=== PATIENT | female | born 1975 | race Caucasian/White ===

== ENCOUNTER 2024-04-09 07:07 | Day surgery (SDC) | payer MEDICARE, SELFPAY ==
--- NOTE | 2024-04-09 | US_ITS ---
[address] [address] Patient Name: KAMILLA SOSA MRN: [id number] date: 1975 Sex: F Assigned Patient Location: US Current Patient Location: Accession/Order Number: [id number] Exam Date: 04/09/2024 07:20 Report Date: 04/09/2024 09:23 At the request of: ESDRAS PATIÑO Procedure: US biopsy FNA add lesion EXAMINATION: US biopsy thyroid, US biopsy FNA add lesion HISTORY: Thyroid nodule COMPARISON: Ultrasound thyroid 03/15/2024 TECHNIQUE: After obtaining informed consent, ultrasound-guided fine needle aspiration was performed in the usual sterile manner. FINDINGS: IMAGING: Ultrasound. BIOPSY NEEDLE: 25 gauge; 3 separate passes. LOCATION: Right lobe mid body 2.9 cm heterogeneous mass and inferior pole 2.1 cm heterogeneous mass. SPECIMEN TYPE: Cellular tissue. LOCAL ANESTHETIC: Buffered Xylocaine. COMPLICATIONS: None. LABORATORY: Prepared slide smears and washings for cell block evaluation. OTHER: Negative. PATHOLOGY: Pending. An addendum will be added when results are available. US/US biopsy FNA add lesion IMPRESSION: 1. Uneventful ultrasound guided fine needle aspiration (FNA). 2. Pathology results are pending. Electronically authenticated by: SRIDEVI MCCARTHY Date: 04/09/2024 09:23
--- NOTE | 2024-04-09 | US_ITS ---
[address] [address] Patient Name: KAMILLA SOSA MRN: [id number] date: 1975 Sex: F Assigned Patient Location: US Current Patient Location: Accession/Order Number: [id number] Exam Date: 04/09/2024 07:20 Report Date: 04/09/2024 09:23 At the request of: ESDRAS PATIÑO Procedure: US biopsy thyroid EXAMINATION: US biopsy thyroid, US biopsy FNA add lesion HISTORY: Thyroid nodule COMPARISON: Ultrasound thyroid 03/15/2024 TECHNIQUE: After obtaining informed consent, ultrasound-guided fine needle aspiration was performed in the usual sterile manner. FINDINGS: IMAGING: Ultrasound. BIOPSY NEEDLE: 25 gauge; 3 separate passes. LOCATION: Right lobe mid body 2.9 cm heterogeneous mass and inferior pole 2.1 cm heterogeneous mass. SPECIMEN TYPE: Cellular tissue. LOCAL ANESTHETIC: Buffered Xylocaine. COMPLICATIONS: None. LABORATORY: Prepared slide smears and washings for cell block evaluation. OTHER: Negative. PATHOLOGY: Pending. An addendum will be added when results are available. US/US biopsy thyroid IMPRESSION: 1. Uneventful ultrasound guided fine needle aspiration (FNA). 2. Pathology results are pending. Electronically authenticated by: SRIDEVI MCCARTHY Date: 04/09/2024 09:23
[2024-04-09 07:25] VITALS: BP 121/83; PULSE 79; O2SAT 98
[2024-04-09] MEDS: LIDOCAINE HCL 10 ML, SODIUM BICARBONATE 1 MEQ INJ (08:15)
--- NOTE | 2024-04-09 09:15 | SUR.PREOP ---
04/08/24 Pt instructed on procedure, date, time,and prep.
== END 2024-04-09 08:40 | disposition home or self-care (01) ==
LOC: US 07:10
PROVIDERS: Radiology Diagnostic Radiology; Visit Provider Otolaryngology
DX: E04.2 Nontoxic multinodular goiter (principal)
CPT/HCPCS: 10005; 10006; 88173

== ENCOUNTER 2024-04-10 07:37 | Day surgery (SDC) | payer MEDICARE, SELFPAY ==
--- NOTE | 2024-04-10 07:43 | US_ITS ---
[address] [address] Patient Name: KAMILLA SOSA MRN: [id number] date: 1975 Sex: F Assigned Patient Location: US Current Patient Location: Accession/Order Number: [id number] Exam Date: 04/10/2024 08:10 Report Date: 04/10/2024 09:24 At the request of: ESDRAS PATIÑO Procedure: US biopsy thyroid EXAMINATION: US biopsy thyroid, US biopsy FNA add lesion HISTORY: Thyroid Nodule COMPARISON: Ultrasound thyroid 03/15/2024 TECHNIQUE: After obtaining informed consent, ultrasound-guided fine needle aspiration was performed in the usual sterile manner. FINDINGS: IMAGING: Ultrasound. BIOPSY NEEDLE: 25 gauge; 3 separate passes within both lesions. LOCATION: Left side of isthmus 1.4 cm heterogeneous isoechoic mass; left lobe inferior pole 2.4 cm heterogeneous isoechoic mass. SPECIMEN TYPE: Cellular tissue. LOCAL ANESTHETIC: Buffered Xylocaine. COMPLICATIONS: None. LABORATORY: Prepared slide smears and washings for cell block evaluation. OTHER: Negative. PATHOLOGY: Pending. An addendum will be added when results are available. US/US biopsy thyroid IMPRESSION: 1. Uneventful ultrasound guided fine needle aspiration (FNA). 2. Pathology results are pending. Electronically authenticated by: SRIDEVI MCCARTHY Date: 04/10/2024 09:24
--- NOTE | 2024-04-10 07:48 | US_ITS ---
[address] [address] Patient Name: KAMILLA SOSA MRN: [id number] date: 1975 Sex: F Assigned Patient Location: US Current Patient Location: Accession/Order Number: [id number] Exam Date: 04/10/2024 08:10 Report Date: 04/10/2024 09:24 At the request of: ESDRAS PATIÑO Procedure: US biopsy FNA add lesion EXAMINATION: US biopsy thyroid, US biopsy FNA add lesion HISTORY: Thyroid Nodule COMPARISON: Ultrasound thyroid 03/15/2024 TECHNIQUE: After obtaining informed consent, ultrasound-guided fine needle aspiration was performed in the usual sterile manner. FINDINGS: IMAGING: Ultrasound. BIOPSY NEEDLE: 25 gauge; 3 separate passes within both lesions. LOCATION: Left side of isthmus 1.4 cm heterogeneous isoechoic mass; left lobe inferior pole 2.4 cm heterogeneous isoechoic mass. SPECIMEN TYPE: Cellular tissue. LOCAL ANESTHETIC: Buffered Xylocaine. COMPLICATIONS: None. LABORATORY: Prepared slide smears and washings for cell block evaluation. OTHER: Negative. PATHOLOGY: Pending. An addendum will be added when results are available. US/US biopsy FNA add lesion IMPRESSION: 1. Uneventful ultrasound guided fine needle aspiration (FNA). 2. Pathology results are pending. Electronically authenticated by: SRIDEVI MCCARTHY Date: 04/10/2024 09:24
[2024-04-10 07:50] VITALS: BP 114/88; PULSE 76; O2SAT 98
[2024-04-10] MEDS: LIDOCAINE HCL 10 ML, SODIUM BICARBONATE 1 MEQ INJ (08:15)
== END 2024-04-10 08:35 | disposition home or self-care (01) ==
LOC: US 07:39
PROVIDERS: Radiology Diagnostic Radiology; Visit Provider Otolaryngology
DX: E04.2 Nontoxic multinodular goiter (principal)
CPT/HCPCS: 10005; 10006; 88173

== ENCOUNTER 2024-05-22 17:33 | Emergency (ER) | payer MEDICARE, MEDICAID, SELFPAY ==
[2024-05-22 17:49] VITALS: BP 129/89; PULSE 85; TEMP 36.6; O2SAT 99; BMI 28.5
[2024-05-22 18:04] VITALS: BP 139/98; PULSE 72; TEMP 36.8; O2SAT 98; BMI 28.5
--- OUTSIDE RECORDS SUMMARY | 2024-05-22 18:04 | XMS_ITS | CCD ---
Author Organization [facility] Care Team Providers Care Youth Career Specialist Name Role Phone ADDI JULIO Admitting Unavailable ADDI JULIO Attending Unavailable Rin Mcgowan Primary Care Provider YULY, DR HAYWARD Primary Care Unavailable BANDAR, DR XIOMY Taylor Consulting Unavailable BANDAR, DR XIOMY Taylor Attending Unavailable BANDAR, DR XIOMY Taylor Admitting Unavailable DEBBIE VIEYRA Consulting Unavailable ADELE MONTAÑO Consulting Unavailable Earlene HAHN Primary Care Physician [phone] Rin Mcgowan Primary Care Physician [phone] Patricia Rivera Unavailable Sammie Robertson Unavailable Juan M ROPE RIDER - Rin WALTON Primary Care Provider FABRICE Rivera Attending Provider [phone] Rin Mcgowan Primary Care Provider MD Irina Jones Attending Provider [phone] Nimco Armas Primary Care Physician Juan M ROPE RIDER - Rin WALTON Primary Care Provider Dariela Alvarez Attending UnavailNimco Guerrero Attending Unavailable Nimco Armas Referring Unavailable Dariela Alvarez Attending Unavaila Dariela Trinh Referring Unavaila Dariela Trinh Taljerry Admitting UnavailNimco Guerrero Admitting Unavailable Nimco Armas Attending Unavailable Dariela Alvarez Attending UnavailNimco Guerrero MD Primary Care Provider Orlin Gordillo DO Unavailable Montrell CONRAD, Hai Primary Care Provider Rin Mcgowan Primary Care Provider Greg CONRAD, Esdras Granados Attending Provider Unavailab Sridevi Crystal MD Attending Provider [phone] Sridevi Mccarthy Attending Unavailable Sridevi Mccarthy Admitting Unavailable Timmis Jr, Esdras Darwin Attending Unavailable Timmis Jr, Esdras H Admitting Unavailable Mcgowan, Rin Bear Primary Care Unavailable GILLMORKIKA M Attending Unavailable GILLMOR, KIKA M Referring Unavailable Armas, Nimco D Referring Unavailable Armas, Nimco Rowley Admitting Unavailable Armas, Nimco Rowley Attending Unavailable Timmis, Esdras H Admitting Unavailable Timmis, Esdras H Attending Unavailable TIMMIS, ESDRAS H Attending Unavailable GILLMOR, KIKA Attending Unavailable TIMMIS, ESDRAS Granados Attending Unavailable GILLMOR, KIKA Attending Unavailable GILLMOR, KIKA Attending Unavailable ARMAS, NIMCO Referring Unavailable ORLIN GORDILLO Attending Unavailable GILLMOR, KIKA Attending Unavailable ARMAS, NIMCO Referring Unavailable Timmis, Esdras H Admitting Unavailable Timmis, Esdras H Attending Unavailable ERICK DONOHUE Attending Unav ailable ERICK DONOHUE Attending Unav ailable KIKA KENT Admitting Unavailable GILLMOClaudia, KIKA Winston Attending Unavailable ANGIMORKIKA Referring Unavailable [facility] Primary Care Unavailable AUSTYN STAUFFER Attending Unavailable MCGOWAN, RIN Primary Care Unavailable GIBSON STINSON Attending Unavailable WANDY GHOTRA Attending Unavailable JUAN M, RIN Primary Care Unavailable [facility] Primary Care Unavailable LAYA ENCARNACION Attending Unavailable Allergies Allergy Classification Reported Allergen(s) Allergy Type Date of Onset Reaction(s) Facility DULoxetine (1 source) DULoxetine; Translations: [duloxetine] Drug Allergy 9 Unknown [facility] Opioid Agonists (1 source) Codeine; Translations: [codeine] Drug Allergy rash [facility] Comment on above: rash,itch, hives risperiDONE (1 source) risperiDONE; Translations: [risperidone] Drug Allergy 9 Unknown [facility] (20 sources) Codeine; Translations: [CODEINE] Drug Allergy 2 Hives, rash, Unknown [facility] Comment on above: rash,itch, hives (20 sources) DULoxetine; Translations: [DULOXETINE] Drug Allergy 9 Anxiety [facility] (20 sources) risperiDONE; Translations: [RISPERIDONE] Drug Allergy 9 Hives [facility] (3 sources) Acetaminophen; Translations: [acetaminophen] Drug Allergy [facility] Rep[facility] Medications Current Medications Medication Drug Class(es) Dates Sig (Normalized) Sig (Original) ALPRAZolam 0.5 mg oral tablet (20 sources) Benzodiazepine Start: 04-25-2023 Alprazolam (Xanax) 0.5 mg tablet Active 0.5 MG PO . NEEDED as needed April 25, 2023 12:00am amitriptyline hydrochloride 25 mg oral tablet (20 sources) Tricyclic Antidepressant Start: 12-21-2023 End: 02-14-2024 amitriptyline (Elavil) 25 MG tablet Indications: Intractable chronic migraine without aura and without status migrainosus (CMS/HCC) Take 1/2-1 at bedtime 30 tablet 2 02/14/2024 Active amoxicillin 500 mg oral capsule (1 source) Penicillin-class Antibacterial Start: 05-06-2023 End: 05-16-2023 take 1 capsule by mouth three times daily amoxicillin (AMOXIL) 500 MG capsule Take 1 capsule by mouth 3 times daily for 10 days 30 capsule 0 05/06/2023 05/16/2023 Active amoxicillin 875 mg / clavulanate 125 mg oral tablet (1 source) Penicillin-class Antibacterial Start: 08-18-2019 End: 08-28-2019 take 1 tablet by mouth twice daily amoxicillin-clavul anate (AUGMENTIN) 875-125 MG per tablet Take 1 tablet by mouth 2 times daily for 10 days 20 tablet 0 08/18/2019 08/28/2019 Active betamethasone 0.5 mg/ml / clotrimazole 10 mg/ml topical cream (2 sources) Azole Antifungal, Corticosteroid Start: 07-22-2023 End: 03-07-2024 clotrimazole-betam ethasone (LOTRISONE) 1-0.05 % cream Apply topically 2 times daily. 15 g 07/22/2023 03/07/2024 Discontinued (LIST CLEANUP) 12 hr buPROPion hydrochloride 100 mg extended release oral tablet (7 sources) Aminoketone Start: 01-08-2020 take 1 tablet by mouth twice daily buPROPion 100 mg ER Tab 100 mg = 1 tab(s), Oral, BID, # 60 tab(s), Refills(s) 2, Pharmacy: [facility] #[id number], 175, cm, 01/07/20 13:49:00 EST, Height/Length Dosing, 98, kg, 01/07/20 13:49:00 EST, Weight Dosing Start Date: 01/08/20 Status: Ordered buPROPion (WELLB UTRIN) 75 MG tablet Take 50 mg by mouth 2 times daily 0 Active cariprazine 3 mg oral capsule (20 sources) Atypical Antipsychotic Start: 10-21-2021 take 1 capsule by mouth once daily VRAYLAR 3 MG CAPS capsule Take 1 capsule by mouth daily 11/29/2023 Active ciprofloxacin 500 mg oral tablet (3 sources) Quinolone Antimicrobial Start: 07-03-2023 End: 07-10-2023 take 1 tablet by mouth twice daily ciprofloxacin (CIPRO) 500 MG tablet Take 1 tablet by mouth 2 times daily for 7 days 14 tablet 0 07/03/2023 07/10/2023 Active Start: 05-23-2019 End: 05-26-2019 take 1 tablet by mouth twice daily ciprofloxacin (CIPRO) 250 MG tablet Take 1 tablet by mouth 2 times daily for 3 days 6 tablet 0 05/23/2019 05/26/2019 Active cyclobenzaprine hydrochloride 10 mg oral tablet (20 sources) Muscle Relaxant Start: 02-14-2024 take 0.5 tablet by mouth twice daily as needed for muscle spasms cyclobenzaprine (FLEXERIL) 10 MG tablet Take 0.5 tablets by mouth 2 times daily as needed for Muscle spasms 02/14/2024 Active Start: 12-21-2023 End: 02-14-2024 cyclobenzaprine (Flexeril) 1 0 MG tablet Indications: Cervicalgia Take 1/2-1 at bedtime 30 tablet 02/14/2024 Active gabapentin 800 mg oral tablet (20 sources) Anti-epileptic Agent Start: 07-12-2023 take 1 tablet by mouth three times daily gabapentin (NEURONTIN) 800 MG tablet Take 1 tablet by mouth 3 times daily. 07/12/2023 Active Start: 04-25-2023 take 1 tablet by efe th twice daily Gabapentin 800 mg tablet Active 800 MG PO Twice daily April 25, 2023 12:00am Start: 07-13-2020 take 1 capsule by mo uth in the morning, then take 1 capsule by mouth in the evening, then take 1 capsule by mouth at bedtime gabapentin (Neurontin) 400 MG capsule Take 400 mg by mouth in the morning and 400 mg in the evening and 400 mg before bedtime. 11/15/2023 Active Start: 02-15-2017 End: 01-21-2020 take 800 mg by mouth three times daily GABAPENTIN EX Take 800 mg by mouth 3 times daily 0 02/15/2017 01/21/2020 Discontinued (LIST CLEANUP) take 2 capsules by m outh three times daily gabapentin (NEURONTIN) 400 MG capsule Take 2 capsules by mouth 3 times daily. 0 Active take 1-2 tablets by mouth twice daily Gabapentin 800 MG 1-2 tablet Orally twice daily Active hydroxychloroquine sulfate 200 mg oral tablet (16 sources) Antimalarial, Antirheumatic Agent Start: 08-09-2023 take 2 tablets by mouth once daily hydroxychloroquine (Plaquenil) 200 MG tablet Take 2 tablets by mouth Daily 03/25/2024 Active ibuprofen 800 mg oral tablet (20 sources) Nonsteroidal Anti-inflammatory Drug Start: 07-12-2023 take 1 tablet by mouth every eight hours as needed ibuprofen (ADVIL;MOTRIN) 800 MG tablet Take 1 tablet by mouth every 8 hours as needed 07/12/2023 Active End: 05-01-2024 take 1 tablet by mouth once daily at mealtime as needed ibuprofen 800 MG tablet TAKE 1 TABLET BY MOUTH EVERY DAY WITH FOOD OR MILK NEEDED 05/01/2024 Discontinued (Therapy completed) 1 ml ixekizumab 80 mg/ml auto-injector (20 sources) Interleukin-17A Antagonist Start: 08-08-2023 End: 03-07-2024 TALTZ 80 MG/ML SOAJ prefilled syringe 08/08/2023 03/07/2024 Discontinued (LIST CLEANUP) Start: 04-25-2023 Ixekizumab (Ta ltz Autoinjector) 80 mg/mL auto-injector Active MG SUBCUT April 25, 2023 12:00am Start: 10-21-2021 Kim Mahajan d Syringe 80 mg/mL subcutaneous solution 80 mg, SubCutaneous, q4wk, Refills(s) 0, Other (see comment) Start Date: 10/21/21 Status: Ordered ketorolac tromethamine 10 mg oral tablet (7 sources) Nonsteroidal Anti-inflammatory Drug, Cyclooxygenase Inhibitor Start: 03-07-2024 End: 04-05-2024 take 1 tablet by mouth every six hours as needed for pain ketorolac (TORADOL) 10 MG tablet Take 1 tablet by mouth every 6 hours as needed for Pain 12 tablet 03/07/2024 Active Start: 03-07-2024 15 mg, IntraVE Nous, ONCE, 1 dose, On Nery 03/07/24 at 0930, Do not administer for more than 5 days. Start: 07-03-2023 End: 07-03-2023 ketorolac (TORADOL) injectio n 15 mg lamoTRIgine 200 mg oral tablet (20 sources) Mood Stabilizer, Anti-epileptic Agent Start: 01-09-2020 End: 04-05-2024 take 1 tablet by mouth once daily Lamotrigine (Lamictal) 200 mg tablet Active 200 MG PO Daily April 25, 2023 12:00am lamoTRIgine (MCCURDY ICTAL PO) Active LaMICtal Active lamoTRIgine (MCCURDY ICTAL PO) lidocaine 0.04 mg/mg medicated patch (2 sources) Antiarrhythmic, Amide Local Anesthetic Start: 03-07-2024 End: 04-06-2024 apply 1 dose transdermal route once daily lidocaine 4 % external patch Place 1 patch onto the skin daily 30 patch 03/07/2024 04/06/2024 Active Start: 03-07-2024 1 patch, Trans DERmal, Administer over 12 Hours, DAILY, First dose on Nery 03/07/24 at 0930, Apply patch to left ribs. The parcel carrier's recommendations for the number of patches that can be applied within a 24-hour period varies from 1 to 4 times daily and the duration of application varies from 8 to 24 hours; refer to the parcel carrier's labeling for product-specific recommendations. 3 ml liraglutide 6 mg/ml pen injector (20 sources) GLP-1 Receptor Agonist Start: 12-20-2021 inject 1.8 mg by subcutaneous injection once daily Victoza 18 MG/3ML 1.8mg Subcutaneous Daily for 90 days Dec, Active magnesium sulfate 225 MG / potassium chloride 188 MG / sodium sulfate 1479 MG Oral Tablet [Sutab] (1 source) Start: 09-27-2023 take 1 tablet by mouth once Sutab oral tablet See Instructions, 1 EA, Refill(s) 0, Please follow instructions per packaging and physician's handout, [facility] #[id number], 175.2, cm, 09/27/23 10:49:00 EDT, Height/Length Dosing, 89.2, kg, 09/27/23 10:49:00 EDT, Weight Dosing Start Date: 09/27/23 Status: Ordered 24 hr metFORMIN hydrochloride 500 mg extended release oral tablet (6 sources) Biguanide take 1 tablet by mouth once daily at dinner metFORMIN HCl ER 500 MG TAKE 1 TABLET BY MOUTH EVERY DAY WITH THE EVENING MEAL for 90 Active take 1 tablet by mouth at bedtim e metFORMIN (GLUCOPHAGE) 500 MG tablet Take 1 tablet by mouth in the morning and at bedtime 0 Active metroNIDAZOLE 500 mg oral tablet (1 source) Nitroimidazole Antimicrobial Start: 07-03-2023 End: 07-10-2023 take 1 tablet by mouth three times daily metroNIDAZOLE (FLAGYL) 500 MG tablet Take 1 tablet by mouth 3 times daily for 7 days 21 tablet 0 07/03/2023 07/10/2023 Active naproxen 500 mg oral tablet (16 sources) Nonsteroidal Anti-inflammatory Drug Start: 11-14-2021 take 1 tablet by mouth twice daily Naprosyn 500 mg Tab 500 mg = 1 tab(s), Oral, BID, # 20 tab(s), Refills(s) 0, Pharmacy: [facility] #[id number], 175, cm, 11/13/21 20:54:00 EDT, Height/Length Dosing, 94.8, kg, 11/13/21 20:53:00 EDT, Weight Dosing Start Date: 11/14/21 Status: Ordered Start: 01-21-2020 take 1 tablet by efe th three times daily at mealtime naproxen (NAPROSYN) 500 MG tablet Take 1 tablet by mouth 3 times daily (with meals) 20 tablet 0 01/21/2020 Active End: 01-21-2020 take 1 tablet by mouth twice daily at mealtime naproxen (NAPROSYN) 500 MG tablet Take 500 mg by mouth 2 times daily (with meals) 0 01/21/2020 Discontinued (LIST CLEANUP) omeprazole 20 mg delayed release oral capsule (1 source) Proton Pump Inhibitor Start: 05-20-2024 take 1 tablet by mouth twice daily, then take 1 tablet by mouth once daily omeprazole (PRILOSEC) 20 MG delayed release capsule 1 tab PO BID x 2 weeks, then 1 tab PO daily daily thereafter 42 capsule 05/20/2024 Active Start: 05-20-2024 take 1 tablet by efe th twice daily, then take 1 tablet by mouth once daily omeprazole (PRILOSEC) 20 MG delayed release capsule 1 tab PO BID x 2 weeks, then 1 tab PO daily daily thereafter 42 capsule 05/20/2024 Active ondansetron 4 mg disintegrating oral tablet (6 sources) Serotonin-3 Receptor Antagonist Start: 05-20-2024 take 1 tablet by mouth every six hours as needed for nausea ondansetron (ZOFRAN-ODT) 4 MG disintegrating tablet Take 1 tablet by mouth every 6 hours as needed for Nausea or Vomiting 21 tablet 05/20/2024 Active Start: 05-20-2024 End: 05-20-2024 4 mg, IntraVENous, ONCE, 1 d ose, On Mon05/20/24 at 0845 Start: 07-03-2023 take 1 tablet by efe th three times daily as needed for nausea ondansetron (ZOFRAN-ODT) 4 MG disintegrating tablet Take 1 tablet by mouth 3 times daily as needed for Nausea or Vomiting 10 tablet 07/03/2023 Active 24 hr paliperidone 9 mg extended release oral tablet (8 sources) Atypical Antipsychotic Start: 04-25-2023 take 1 tablet by mouth once daily in the morning Paliperidone 9 mg tablet extended release 24 hr Active 9 MG PO Every morning April 25, 2023 12:00am take 1 tablet by efe th once daily in the morning Paliperidone ER 9 MG TAKE 1 TABLET BY MO [facility] EVERY DAY IN THE MORNING Oral for 30 Days Active pregabalin 75 mg oral capsule (2 sources) take 1 capsule by mouth twice daily pregabalin (LYRICA) 75 MG capsule Take 75 mg by mouth 2 times daily. 0 Active 1 ml secukinumab 150 mg/ml auto-injector (5 sources) Interleukin-17A Antagonist Cosentyx Sensoready Pen 150 MG/ML Subcutaneous for 28 Days Active 0.25 mg, 0.5 mg dose 1.5 ml semaglutide 1.34 mg/ml pen injector (1 source) Start: 4 End: Semaglutide,0.25 or 0.5MG/DOS, 2 MG/1.5ML SOPN Indications: Class 1 obesity due to excess calories without serious comorbidity with body mass index (BMI) of 30.0 to 30.9 in adult Inject 1.5 mg into the skin once a week 1.5 mL 2 09/22/2023 03/07/2024 Discontinued (LIST CLEANUP) sucralfate 1000 mg oral tablet (1 source) Aluminum Complex Start: take 1 tablet by mouth four times daily sucralfate (CARAFATE) 1 GM tablet Take 1 tablet by mouth 4 times daily 120 tablet 05/20/2024 Active Start: 05-20-2024 take 1 tablet by efe th four times daily sucralfate (CARAFATE) 1 GM tablet Take 1 tablet by mouth 4 times daily 120 tablet 05/20/2024 Active topiramate 100 mg oral tablet (20 sources) Start: 04-25-2023 take 1 tablet by mouth twice daily topiramate (Topamax) 100 MG tablet Indications: Cervicalgia TAKE 1 TABLET BY MOUTH TWICE DAILY 180 tablet 08/14/2023 Active Start: 04-14-2020 take 1 tablet by efe th twice daily Topamax 50 mg Tab 50 mg = 1 tab(s), Oral, BID, # 60 tab(s), Refills(s) 2, Pharmacy: [facility] #[id number], 175.1, cm, 04/14/20 10:41:00 EST, Height/Length Dosing, 98, kg, 04/14/20 10:41:00 EST, Weight Dosing Start Date: 04/14/20 Status: Ordered take 1 tablet by efe th once daily topiramate (TOPAMAX) 100 MG tablet Take 1 tablet by mouth daily Active take 1 tablet by efe th every twelve hours Topamax 100 MG 1 tablet Orally bid Active wegovy 0.25 mg/0.5ml solutio n auto-injector (3 sources) Start: 03-29-2023 Wegovy 0.25 MG /0.5ML 0.25mg once weekly for weeks 1-4 Subcutaneous once weekly for 28 days Aware medication is backordered at this time. Assessing insurance coverage. Mar, Active Completed/Discontinued Medications Medication Drug Class(es) Dates Sig (Normalized) Sig (Original) acetaminophen 325 mg / HYDROcodone bitartrate 5 mg oral tablet (2 sources) Opioid Agonist Start: 03-07-2024 End: 03-07-2024 take 1 tablet by mouth every twenty-four hours 1 tablet, Oral, ONCE, 1 dose, On Nery 03/07/24 at 0930, Maximum dose of acetaminophen is 4000 mg from all sources in 24 hours. Start: 07-03-2023 End: 07-08-2023 HYDROcodone-acetaminophen (N ORCO) 5-325 MG per tablet Indications: Diverticulitis of colon Take 1 tablet by mouth every 6 hours as needed for Pain for up to 5 days. Max Daily Amount: 4 tablets 15 tablet 0 07/03/2023 07/08/2023 Active acetaminophen 325 mg / oxyCODONE hydrochloride 7.5 mg oral tablet (2 sources) Opioid Agonist End: 05-23-2019 take 1 tablet by mouth every four hours as needed oxyCODONE-acetaminophen (PERCOCET) 7.5-325 MG per tablet Take 1 tablet by mouth every 4 hours as needed. 0 05/23/2019 Discontinued (Side effects) aluminum & magnesium hydroxide-simethic one (MAALOX PLUS) 30 mL, lidocaine viscous hcl (XYLOCAINE) 5 mL (GI COCKTAIL) (1 source) Start: 05-20-2024 End: 05-20-2024 Oral, ONCE, On Mon05/20/24 at 0930, For 1 dose, Take 5 mL from lidocaine viscous 2% cup and mix with 30 mL of maalox and then administer. baclofen 10 mg oral tablet (4 sources) gamma-Aminobuty ximena Acid-ergic Agonist End: 08-18-2019 take 1 tablet by mouth three times daily baclofen (LIORESAL) 10 MG tablet Take 10 mg by mouth 3 times daily. 0 08/18/2019 Discontinued (LIST CLEANUP) barium sulfate 60 % suspension 355 mL (1 source) Start: 05-23-2019 End: 05-23-2019 barium sulfate 60 % suspension 355 mL barium sulfate 700 mg tablet (1 source) Start: 05-23-2019 End: 05-23-2019 barium sulfate 700 mg tablet bupivacaine hydrochloride 2.5 mg/ml injectable solution (2 sources) Amide Local Anesthetic Start: 01-04-2024 End: 01-04-2024 bupivacaine (Marcaine) 0.25 % injection 10 mg Start: 01-04-2024 End: 01-04-2024 10 mg (4 mL), Injection, Onc e, On Nery 01/04/24 at 1300, For 1 dose 12 hr dextromethorphan hydrobromide 30 mg / guaiFENesin 600 mg extended release oral tablet (4 sources) Uncompetitive L-acwont-K-aspartate Receptor Antagonist, Sigma-1 Agonist End: 08-18-2019 take 30-600 mg by mouth once as needed dextromethorphan-guaiFENesin (MUCINEX DM) 30-600 MG per extended release tablet Take 1 tablet by mouth every 12 hours as needed 0 08/18/2019 Discontinued (LIST CLEANUP) 1 ml diphenhydrAMINE hydrochloride 50 mg/ml cartridge (1 source) Histamine-1 Receptor Antagonist Start: 05-23-2019 End: 05-23-2019 diphenhydrAMINE (BENADRYL) injection 25 mg Start: 05-23-2019 End: 05-23-2019 diphenhydrAMINE (BENADRYL) i njection 25 mg glucagon (rdna) 1 mg injection (1 source) Antihypoglycemic Agent Start: 05-23-2019 End: 05-23-2019 glucagon (rDNA) injection 1 mg Start: 05-23-2019 End: 05-23-2019 glucagon (rDNA) injection 1 mg iopamidol (ISOVUE-370) 76 % injection 75 mL (1 source) Start: 03-07-2024 End: 03-07-2024 take 1 dose intravenously once 75 mL, IntraVENous, IMG ONCE PRN, 1 dose, Starting on Nery 03/07/24 at 0931, Until Nery 03/07/24 at 1003, Other 1 ml methylPREDNISolone acetate 40 mg/ml injection (3 sources) Corticosteroid Start: 01-04-2024 End: 01-04-2024 methylPREDNISolone acetate (DEPO-Medrol) injection 40 mg Start: 01-04-2024 End: 01-04-2024 40 mg, Injection, Once, On T hu 01/04/24 at 1300, For 1 dose Start: 05-23-2019 End: 05-23-2019 methylPREDNISolone sodium (S POONAM-MEDROL) injection 80 mg naltrexone hydrochloride 50 mg oral tablet (6 sources) Opioid Antagonist Start: 07-04-2023 naltrexone 5 0 mg oral tablet 6 EA, 0 Refill(s), TAKE 1 TABLET BY MOUTH EVERY DAY, Refills(s) 0 Start Date: 07/04/23 Status: Ordered pantoprazole (PROTONIX) 40 mg in sodium chloride (PF) 0.9 % 10 mL injection (1 source) Start: 05-20-2024 End: 05-20-2024 40 mg, IntraVENous, ONCE, On 05/20/24 at 0930, For 1 dose, Reconstitute with 10 mL 0.9 % sodium chloride and administer over at least 2 minutes. 1000 ml sodium chloride 9 mg/ml injection (2 sources) Start: 05-20-2024 End: 05-20-2024 1,000 mL (11.4 mL/kg), IntraVENous, at 983.6 mL/hr, Administer over 61 Minutes, ONCE, On 05/20/24 at 0845, For 1 dose Start: 03-07-2024 End: 03-07-2024 500 mL (5.43 mL/kg), IntraVE Nous, at 1,000 mL/hr, Administer over 0.5 Hours, ONCE, On Nery 03/07/24 at 0930, For 1 dose ubrogepant 50 mg oral tablet (10 sources) Start: 04-14-2020 take 1 tablet by mouth every two hours as needed Ubrelvy 50 mg oral tablet 50 mg = 1 tab(s), Oral, Once, PRN as needed for migraine headache, may repeat dose in 2 hours if needed, # 10 tab(s), Refills(s) 1, Pharmacy: [facility] #[id number], 175.1, cm, 04/14/20 10:41:00 EST, Height/Length Dosing, 98, kg, 04/14/20 10:41:00 EST, Weight Dosing Start Date: 04/14/20 Status: Ordered Problems Active Problems Problem Classification Problem Date Documented Da te Episodic/Chronic Abdominal pain (8 sources) Right lower quadrant pain; Translations: [Lower abdominal pain] Onset: 4 Episodic Acute bronchitis (20 sources) Acute infective bronchitis; Translations: [Acute bronchitis due to other specified organisms] Onset: 5 10-21-2021 Episodic Administrative/social admission (4 sources) Persons encountering health services in other specified circumstances Episodic Anxiety disorders (20 sources) Anxiety; Translations: [Anxiety state] Onset: 5 10-02-2017 Chronic Diverticulosis and diverticulitis (20 sources) Diverticulitis of colon; Translations: [Diverticulitis of large intestine without perforation or abscess without bleeding] Onset: 4 07-03-2023 Chronic E Codes: Fall (3 sources) Fall from stairs and steps due to ice and snow, initial encounter; Translations: [Fall] Onset: 2 03-07-2024 Episodic Fever of unknown origin (20 sources) Fever; Translations: [Fever presenting with conditions classified elsewhere] Onset: 5 10-21-2021 Episodic Headache; including migraine (20 sources) Migraine; Translations: [Migraine without aura, not refractory ] Onset: 5 04-14-2020 Chronic Lymphadenitis (1 source) Lymphadenopathy of head AND/OR neck; Translations: [Lymphadenopathy of head and neck region] Episodic Malaise and fatigue (14 sources) Fatigue; Translations: [Chronic fatigue, unspecified] Onset: 5 04-05-2024 Chronic Miscellaneous mental health disorders (20 sources) Primary insomnia; Translations: [Primary insomnia] Onset: 4 06-27-2023 Chronic Mood disorders (20 sources) Bipolar affective disorder, currently manic, mild; Translations: [Moderate mixed bipolar I disorder] Onset: 5 11-01-2019 Chronic Nonspecific chest pain (1 source) Chest pain; Translations: [Chest pain, unspecified] Onset: 2 Episodic Osteoarthritis (3 sources) Arthritis; Translations: [Unspecified osteoarthritis, unspecified site] 04-25-2023 Chronic Other aftercare (1 source) Other skilled nursing (current) drug therapy; Translations: [OTH SOCIAL WORK ASSISTANT CURRENT DRUG THERAPY] Onset: 2 Episodic Other and ill-defined cerebrovascular disease (14 sources) Garcia aneurysm ; Translations: [Cerebral aneurysm, nonruptured] Onset: 5 04-05-2024 Chronic Other circulatory disease (2 sources) Feeling of lump in throat; Translations: [Globus sensation] Episodic Other circulatory disease (20 sources) Elevated blood-pressure reading without diagnosis of hypertension; Translations: [Elevated blood-pressure reading, without diagnosis of hypertension] Onset: 5 08-27-2020 Episodic Other connective tissue disease (20 sources) Fibromyalgia; Translations: [Fibromyalgia] 01-07-2020 Episodic Other connective tissue disease (1 source) Abnormal posture; Translations: [Abnormal posture] Episodic Other gastrointestinal disorders (2 sources) Dysphagia; Translations: [Dysphagia, unspecified type] Episodic Other lower respiratory disease (6 sources) Snoring Episodic Other lower respiratory disease (3 sources) Snoring; Translations: [Snoring] 04-25-2023 Episodic Other nervous system disorders (20 sources) Carpal tunnel syndrome; Translations: [Carpal tunnel syndrome, unspecified upper limb] Onset: 0 06-27-2023 Chronic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 (narrative) [facility] US BIOPSY THYROIDon 04-09-19 [place] [address] Ultrasound Report Signed Patient: Kamilla Sosa MR#: [id number] : 1975 Acct:[id number] Age/Sex: 48 / F ADM Date: 04/09/24 Loc: US Attending Dr: Esdras Patiño M.D. Ordering Physician: Esdras Patiño M.D. Date of Service: 04/09/24 Procedure(s): US biopsy thyroid Accession Number(s): [id number] cc: NIMCO ARMAS; Esdras Patiño M.D. The [place] [id number] Patient Name: KAMILLA SOSA MRN: [facility]:[id number] date: 1975 Sex: F Assigned Patient Location: US Current Patient Location: Accession/Order Number: [id number] Exam Date: 04/09/2024 07:20 Report Date: 04/09/2024 09:23 At the request of: ESDRAS PATIÑO Procedure: US biopsy thyroid EXAMINATION: US biopsy thyroid, US biopsy FNA add lesion HISTORY: Thyroid nodule COMPARISON: Ultrasound thyroid 03/15/2024 TECHNIQUE: After obtaining informed consent, ultrasound-guided fine needle aspiration was performed in the usual sterile manner. FINDINGS: IMAGING: Ultrasound. BIOPSY NEEDLE: 25 gauge; 3 separate passes. LOCATION: Right lobe mid body 2.9 cm heterogeneous mass and inferior pole 2.1 cm heterogeneous mass. SPECIMEN TYPE: Cellular tissue. LOCAL ANESTHETIC: Buffered Xylocaine. COMPLICATIONS: None. LABORATORY: Prepared slide smears and washings for cell block evaluation. OTHER: Negative. PATHOLOGY: Pending. An addendum will be added when results are available. US/US biopsy thyroid IMPRESSION: 1. Uneventful ultrasound guided fine needle aspiration (FNA). 2. Pathology results are pending. Electronically authenticated by: SRIDEVI MCCARTHY Date: 04/09/2024 09:23 Dictated By: Sridevi Mccarthy M.D. Signed By: 04/09/24924 DD/ 2 TD/TT: Electronic Engineering Draftsperson: [facility] Radiology, Radiologist, MD - 04/09/2024 [place] [address] Ultrasound Report Signed Patient: Kamilla Sosa MR#: [id number] : 1975 Acct:[id number] Age/Sex: 48 / F ADM Date: 04/09/24 Loc: US Attending Dr: Esdras Patiño M.D. Ordering Physician: Esdras Patiño M.D. Date of Service: 04/09/24 Procedure(s): US biopsy thyroid Accession Number(s): [id number] cc: NIMCO ARMAS; Esdras Patiño M.D. [address] [address] Patient Name: KAMILLA OSSA MRN: [id number]:[id number] date: 1975 Sex: F Assigned Patient Location: US Current Patient Location: Accession/Order Number: [id number] Exam Date: 04/09/2024 07:20 Report Date: 04/09/2024 09:23 At the request of: ESDRAS PATIÑO Procedure: US biopsy thyroid EXAMINATION: US biopsy thyroid, US biopsy FNA add lesion HISTORY: Thyroid nodule COMPARISON: Ultrasound thyroid 03/15/2024 TECHNIQUE: After obtaining informed consent, ultrasound-guided fine needle aspiration was performed in the usual sterile manner. FINDINGS: IMAGING: Ultrasound. BIOPSY NEEDLE: 25 gauge; 3 separate passes. LOCATION: Right lobe mid body 2.9 cm heterogeneous mass and inferior pole 2.1 cm heterogeneous mass. SPECIMEN TYPE: Cellular tissue. LOCAL ANESTHETIC: Buffered Xylocaine. COMPLICATIONS: None. LABORATORY: Prepared slide smears and washings for cell block evaluation. OTHER: Negative. PATHOLOGY: Pending. An addendum will be added when results are available. US/US biopsy thyroid IMPRESSION: 1. Uneventful ultrasound guided fine needle aspiration (FNA). 2. Pathology results are pending. Electronically authenticated by: SRIDEVI MCCARTHY Date: 04/09/2024 09:23 Dictated By: Sridevi Mccarthy M.D. Signed By: 04/09/24924 DD/ 2 TD/TT: Electronic Engineering Draftsperson: [facility] TH[facility]RO[facility] 04-09-[address] [address] Ultrasound Report Signed Patient: Kamilla Sosa MR#: [id number] : 1975 Acct:[id number] Age/Sex: 48 / F ADM Date: 04/09/24 Loc: US Attending Dr: Esdras Patiño M.D. Ordering Physician: Esdras Patiño M.D. Date of Service: 04/09/24 Procedure(s): US biopsy FNA add lesion Accession Number(s): [id number] cc: NIMCO ARMAS; Esdras Patiño M.D. The [place] [id number] Patient Name: KAMILLA SOSA MRN: [facility]:[id number] date: 1975 Sex: F Assigned Patient Location: US Current Patient Location: Accession/Order Number: [id number] Exam Date: 04/09/2024 07:20 Report Date: 04/09/2024 09:23 At the request of: ESDRAS PATIÑO Procedure: US biopsy FNA add lesion EXAMINATION: US biopsy thyroid, US biopsy FNA add lesion HISTORY: Thyroid nodule COMPARISON: Ultrasound thyroid 03/15/2024 TECHNIQUE: After obtaining informed consent, ultrasound-guided fine needle aspiration was performed in the usual sterile manner. FINDINGS: IMAGING: Ultrasound. BIOPSY NEEDLE: 25 gauge; 3 separate passes. LOCATION: Right lobe mid body 2.9 cm heterogeneous mass and inferior pole 2.1 cm heterogeneous mass. SPECIMEN TYPE: Cellular tissue. LOCAL ANESTHETIC: Buffered Xylocaine. COMPLICATIONS: None. LABORATORY: Prepared slide smears and washings for cell block evaluation. OTHER: Negative. PATHOLOGY: Pending. An addendum will be added when results are available. US/US biopsy FNA add lesion IMPRESSION: 1. Uneventful ultrasound guided fine needle aspiration (FNA). 2. Pathology results are pending. Electronically authenticated by: SRIDEVI MCCARTHY Date: 04/09/2024 09:23 Dictated By: Sridevi Mccarthy M.D. Signed By: 04/09/24924 DD/ 2 TD/TT: Electronic Engineering Draftsperson: [facility] Radiology, Radiologist, MD - 04/09/2024 [place] [address] Ultrasound Report Signed Patient: Kamilla Sosa MR#: [id number] : 1975 Acct:[id number] Age/Sex: 48 / F ADM Date: 04/09/24 Loc: US Attending Dr: Esdras Patiño M.D. Ordering Physician: Esdras Patiño M.D. Date of Service: 04/09/24 Procedure(s): US biopsy FNA add lesion Accession Number(s): [id number] cc: NIMCO ARMAS; Esdras Patiño M.D. [address] [address] Patient Name: KAMILLA SOSA MRN: [id number] date: 1975 Sex: F Assigned Patient Location: US Current Patient Location: Accession/Order Number: [id number] Exam Date: 04/09/2024 07:20 Report Date: 04/09/2024 09:23 At the request of: ESDRAS PATIÑO Procedure: US biopsy FNA add lesion EXAMINATION: US biopsy thyroid, US biopsy FNA add lesion HISTORY: Thyroid nodule COMPARISON: Ultrasound thyroid 03/15/2024 TECHNIQUE: After obtaining informed consent, ultrasound-guided fine needle aspiration was performed in the usual sterile manner. FINDINGS: IMAGING: Ultrasound. BIOPSY NEEDLE: 25 gauge; 3 separate passes. LOCATION: Right lobe mid body 2.9 cm heterogeneous mass and inferior pole 2.1 cm heterogeneous mass. SPECIMEN TYPE: Cellular tissue. LOCAL ANESTHETIC: Buffered Xylocaine. COMPLICATIONS: None. LABORATORY: Prepared slide smears and washings for cell block evaluation. OTHER: Negative. PATHOLOGY: Pending. An addendum will be added when results are available. US/US biopsy FNA add lesion IMPRESSION: 1. Uneventful ultrasound guided fine needle aspiration (FNA). 2. Pathology results are pending. Electronically authenticated by: SRIDEVI MCCARTHY Date: 04/09/2024 09:23 Dictated By: Sridevi Mccarthy M.D. Signed By: 04/09/24924 DD/ 2 TD/TT: Electronic Engineering Draftsperson: [employer] CHEMISTRYOrdered By: [employer] SYSTEM on 04-05-2024 FTI 10.00 ng/dL Normal 5.90 - 13.10 ng/dL Remisol Chem T3RU 43.4 % Normal 32.0 - 48.4 % Remisol Chem T4 [Mass/Vol] 9.2 ug/dL High 4.6 - 9.1 mcg/dL Remisol Chem TSH Qn 0.57 m[IU]/L Normal 0.34 - 5.60 mcIU/mL Remisol Chem [facility] THYROID IIon 04-05-2024 FTI 10 ng/dL 5.90 - 13.10 ng/dL [facility] THYROTROPIN:ACNC:PT:S ER/PLAS:QN: 0.57 [facility] THYROXINE:MCNC:PT:SER /PLAS:QN: 9.2 High [facility] Interpretation and review of laboratory results Abnormal [facility] TRIIODOTHYRONINE RESIN UPTAKE (T3RU):NFR:PT:SER/JEANETTE S:QN: 43.4 % 32.0 - 48.4 % [facility] Original Ordering Provider: MD Esdras HAMMONDS [facility] e Thyroid IIon 04-05-2024 TSH Qn 0.57 m[IU]/L Normal 0.34-5.60 [facility] Comment on above: Performed By: #### 1 [id number] #### [facility] [address] [place] [address] FTI 10.00 ng/dL Normal 5.90-13.10 [facility] Comment on above: Performed By: #### 1 [id number] #### [facility] [address] [place] [address] T4 [Mass/Vol] 9.2 microgram/dL High 4.6-9.[address] [facility] Comment on above: Performed By: #### 1 [id number] #### [facility] [address] [place] [address] T3RU 43.4 % Normal 32.0-48.4 [facility] Comment on above: Performed By: #### 1 [id number] #### [facility] [address] [place] [address] Nonvisit Note - PTon 025 Nonvisit Note - PT Nonvisit Note - PT Needs re-eval. Normal [facility] Nonvisit Note - PTon 025 Nonvisit Note - PT Nonvisit Note - PT Pt canceled her outpatient PT appt for today as her car would not start; her reeval is rescheduled for tomorrow. Normal [facility] Nonvisit Note - PTon 025 Nonvisit Note - PT Nonvisit Note - PT Weather. Normal [facility] US Thyroidon 03-20-2024 US Thyroid Exam Date/Time: 03/15/2024 15:47 EST Reason for Exam: E04.1 Report IMPRESSION: 3.0 X 2.4 X 2.2 CM RIGHT LOBE MIDPOLE NODULE. NODULE HAS INCREASED IN SIZE FROM 1.6 X 1.5 X 1.3 CM. NO FURTHER WORKUP REQUIRED. INTERVAL DEVELOPMENT OF 1.9 X 1.6 X 1.4 CM RIGHT LOBE LOWER POLE NODULE. NO FURTHER WORKUP REQUIRED. INTERVAL DEVELOPMENT OF LEFT ISTHMUS NODULE MEASURING 1.3 X 1.1 X 1.2 CM. NO FURTHER WORKUP REQUIRED. 2.2 X 1.4 X 1.3 CM NODULE LEFT LOBE LOWER POLE, PREVIOUSLY MEASURING 1.6 X 1.3 X 1.1 CM. BIOPSY RECOMMENDED. THYROID SONOGRAPHY WITH COLOR FLOW. CLINICAL HISTORY: E04.1. HISTORY OF THYROID NODULES, AND THYROID BIOPSY. COMPARISONS: THYROID SONOGRAPHY MAY 22, 2018. FINDINGS: Biplanar images were obtained. The right lobe measures 5.4 cm x 2.9 cm x 2.7 cm with a volume of 21.8 cm3. The left lobe measures 5.8 cm x 1.6 cm x 1.7 cm with a volume of 8.6 cm3. The isthmus measures 0.6 cm. Multiple bilateral thyroid nodules identified. In the right lobe, mid pole, a 3.0 x 2.4 x 2.2 cm mixed cystic and solid, isoechoic, wider than tall, smoothly marginated, noncalcified nodule is identified (TR 2). This compares with prior nodule mid pole right thyroid measuring 1.6 x 1.5 x 1.3 cm. In the right lobe lower pole, a 1.9 x 1.6 x 1.4 cm mixed cystic and solid, isoechoic, wider than tall, smoothly marginated, noncalcified nodule is identified (TR 2), and has developed in the interim. In the left isthmus, a 1.3 x 1.1 x 1.2 cm nearly completely solid, isoechoic, wider than tall, smoothly marginated, noncalcified nodule is identified (TR 3). Nodule not present on prior study. The left lobe lower pole, a 2.2 x 1.4 x 1.3 cm nearly completely solid, isoechoic, taller than wide, smoothly marginated, noncalcified nodule is identified (TR 4). This Report nodule previously measured 1.6 x 1.3 x 1.1 cm. Ordering Provider: Nimco Armas FINAL REPORT Dictated: 03/20/2024 9:47 am Ellis Ellis MD Signed (Electronic Signature): 03/20/2024 9:47 am Signed by: Ellis Ellis MD Transcribed by: FARRAH Technologist: [place] Normal [facility] Nonvisit Note - PTon 025 Nonvisit Note - PT Nonvisit Note - PT Cxl per patient. Can hardly move today with her fractured ribs. Conf 03/19. Normal [facility] No Panel Informationon 03-13 [facility] Nonvisit Note - PTon 025 Nonvisit Note - PT Nonvisit Note - PT Per the front desk specialist, wanted to do land therapy instead. Normal [facility] CT CHEST ABDOMEN PELVIS W CO NTRASTon 03-07-2024 CT CHEST ABDOMEN PELVIS W CONTRAST EXAM: CT CHEST ABDOMEN PELVIS W CONTRAST HISTORY: trauma COMPARISON: None. TECHNIQUE: CT examination of the chest, abdomen, and pelvis with IV contrast. Coronal and sagittal reformations were performed. Dose reduction techniques were achieved by using automated exposure control and/or adjustment of mA and/or kV according to patient size and/or use of iterative reconstruction technique. FINDINGS: POSITIVES related to history: None. NEGATIVES related to history: No acute traumatic change in the chest, abdomen, or pelvis. COINCIDENTAL, unrelated to history: Enlarged nodular thyroid gland. Cholecystectomy. Mild plaque aorta, without aneurysm. Diverticulosis descending and sigmoid colon, without acute diverticulitis. Hysterectomy. ROUTINE: Great vessels are normal. No unexpected mass, free fluid, or acute surgical change in the chest, abdomen, or pelvis. IMPRESSION: Multinodular enlarged thyroid meets criteria for elective outpatient thyroid ultrasound. No acute traumatic changes. Interpreted by: Phil Denton Jr., MD Signed by: Phil Denton Jr., MD 03/07/24 Final result Normal [facility] CT Chest and Abdomen and Pel vis W contrast [place] 03-07-2024 Multinodular enlarged thyroid meets criteria for elective outpatient thyroid ultrasound. No acute traumatic changes. [facility] RIS CONSOLIDATED EXAM: CT CHEST ABDOMEN PELVIS W CONTRAST HISTORY: trauma COMPARISON: None. TECHNIQUE: CT examination of the chest, abdomen, and pelvis with IV contrast. Coronal and sagittal reformations were performed. Dose reduction techniques were achieved by using automated exposure control and/or adjustment of mA and/or kV according to patient size and/or use of iterative reconstruction technique. FINDINGS: POSITIVES related to history: None. NEGATIVES related to history: No acute traumatic change in the chest, abdomen, or pelvis. COINCIDENTAL, unrelated to history: Enlarged nodular thyroid gland. Cholecystectomy. Mild plaque aorta, without aneurysm. Diverticulosis descending and sigmoid colon, without acute diverticulitis. Hysterectomy. ROUTINE: Great vessels are normal. No unexpected mass, free fluid, or acute surgical change in the chest, abdomen, or pelvis. [facility] RIS CONSOLIDATED Phil Denton Jr., MD - 03/07/2024 EXAM: CT CHEST ABDOMEN PELVIS W CONTRAST HISTORY: trauma COMPARISON: None. TECHNIQUE: CT examination of the chest, abdomen, and pelvis with IV contrast. Coronal and sagittal reformations were performed. Dose reduction techniques were achieved by using automated exposure control and/or adjustment of mA and/or kV according to patient size and/or use of iterative reconstruction technique. FINDINGS: POSITIVES related to history: None. NEGATIVES related to history: No acute traumatic change in the chest, abdomen, or pelvis. COINCIDENTAL, unrelated to history: Enlarged nodular thyroid gland. Cholecystectomy. Mild plaque aorta, without aneurysm. Diverticulosis descending and sigmoid colon, without acute diverticulitis. Hysterectomy. ROUTINE: Great vessels are normal. No unexpected mass, free fluid, or acute surgical change in the chest, abdomen, or pelvis. IMPRESSION: Multinodular enlarged thyroid meets criteria for elective outpatient thyroid ultrasound. No acute traumatic changes. [facility] Radiology Study observation (narrative) [facility] CT Chest and Abdomen and Pel vis W contrast IVOrdered By: Phil Denton on 03-07-2024 [facility] Work Phone: Nonvisit Note - PTon 025 Nonvisit Note - PT Nonvisit Note - PT Per the front desk specialist, [id number], not feeling well. Normal [facility] XR SHOULDER LEFT (MIN 2 VIEW S)on 03-07-2024 XR SHOULDER LEFT (MIN 2 VIEWS) EXAM: XR SHOULDER LEFT (MIN 2 VIEWS) HISTORY: injury COMPARISON: None. IMPRESSION: FINDINGS/IMPRESSION: 1. No fracture or dislocation. 2. Negative for calcific bursitis. 3. No degenerative change. 4. No explanation for pain. Interpreted by: Phil Denton Jr., MD Signed by: Phil Denton Jr., MD 03/07/24 Final result Normal [facility] XR Shoulder - left 2 Viewson 03-07-2024 FINDINGS/IMPRESSION: 1. No fracture or dislocation. 2. Negative for calcific bursitis. 3. No degenerative change. 4. No explanation for pain. [facility] RIS CONSOLIDATED EXAM: XR SHOULDER LEFT (MIN 2 VIEWS) HISTORY: injury COMPARISON: None. [facility] RIS CONSOLIDATED Phil Denton Jr., MD - 03/07/2024 EXAM: XR SHOULDER LEFT (MIN 2 VIEWS) HISTORY: injury COMPARISON: None. IMPRESSION: FINDINGS/IMPRESSION: 1. No fracture or dislocation. 2. Negative for calcific bursitis. 3. No degenerative change. 4. No explanation for pain. [facility] Radiology Study observation (narrative) [facility] Patient Letter FTon 2023 Patient Letter [facility] Patient Letter [facility] November 23, 2023 KAMILLA ESPINOZAT [address] [place] [address] [address] [place] [address] : 1975 Below is a summary of the results of your recent colonoscopy. Your results have been sent to your primary care provider along with recommendations on when the procedure should be repeated. COLONOSCOPY WITH POLYP REMOVAL OR BIOPSY Type of polyp no polyps identified Based on your results we are recommending you repeat the procedure in 5 years You will be placed in our reminder system and will receive a reminder letter prior to your next due date. [facility] [phone] Normal [facility] Reminderson 11-21-2023 Reminders Reminders - From: Rin Quevedo I To: [facility] - Reminders/Recalls; Sent: 11/21/2023 14:49:51 EDT Show up: 09/03/2028 14:49:00 EDT Subject: Colonoscopy recall Due Date/Time: 11/07/2028 14:49:00 EDT Reminder/Recall 5 year colon recall - Fhx colon cancer, personal hx colon polyps Dr. Alvarez 11/08/23 Normal [facility] Surgical Pathology Reporton 2023 Surgical Pathology Report [facility] [address] [place] [address]- Surgical Pathology Report Collected Date/Time: 11/08/2023 14:25 EDT Pathologist: Dank Camacho MD Received Date/Time: 11/09/2023 08:11 EDT Antonio CONRAD, Dariela Alvarez MD, Dariela Alvarez 07 Surgical Pathology Report - 2023 14:54 EDT - Auth (Verified) Final Diagnosis A: COLON, TRANSVERSE, POLYPECTOMY: - Hyperplastic polyp. B: COLON, CECUM, POLYPECTOMY: - Fragments of tubular adenoma. (Electronic Signature) Yan. Janice MD 2023 14:54 Clinical Information Pre-Op Diagnosis: Lower abdominal pain, diverticulitis, family history of colon cancer Procedure: Colonoscopy Post-Op Diagnosis: 1. Normal rectal exam 2. 2 mm sessile polyp in the cecum, resected with cold snare completely and retrieved 3. 2 small polyps in the transverse colon, 2-5 mm in size, resected with cold snare completely and retrieved 4. Normal examined terminal ileum Specimen(s) Received A.Transverse colon polyps B.Cecal polyp Gross Description A: Received in formalin labeled with patient name, number, and transverse colon polyps are multiple fragments of garcía tissue ranging from 0.1 to 0.3 cm in greatest dimension and measuring in aggregate 0.5 x 0.4 x 0.1 cm. Specimen is entirely submitted in one cassette. B: Received in formalin labeled with patient name, number, and cecal polyp are three fragments of garcía/pink tissue ranging from 0.4 to 0.8 cm measuring and measuring in aggregate 1.3 x 0.8 x 0.2 cm. Specimen is entirely submitted in one cassette. (DC) DC:[facility] Microscopic Description A&B: Microscopic examination performed unless gross only specified. Normal [facility] Comment on above: Performed By: #### [id number] #### [facility] [address] [place] [address] Main OR Intraoperative Recor don 11-09-2023 Main OR Intraoperative Record Main OR Intraoperative Record IntraOp Document Type FT Summary Primary Physician: Dariela Alvarez MD Finalized Date/Time: 11/09/23 11:17:31 Pt. Name: IANKAMILLA /Sex: 1975 Female Med Rec #: [id number] Physician: Dariela Alvarez MD Financial #: [id number] Pt. Type: O Room/Bed: / Admit/Disch: 11/08/23 12:58:03 - 11/08/23 23:59:59 Institution: Case Times FT Entry 1 Patient Times In Room 11/08/23 14:12:00 Out Room 11/08/23 14:33:00 Procedure Times Start 11/08/23 14:15:00 Stop 11/08/23 14:29:00 Anesthesia Times Start 11/08/23 14:12:00 Stop 11/08/23 14:33:00 Time at [facility] 11/08/23 14:18:00 Last Modified By: David PAK, Kika 11/08/23 15:07:11 General Comments: 11/09/23 Chart opened to review and send charges [facility] Case Attendance FT Entry 1 Entry 2 Entry 3 Case Attendee Antonio CONRAD, Dariela Hernandez RN, Johnnie Harrell Role Performed Surgeon - Primary [employer] Exchange Administrator - Primary Anesthesiologist Social Media Job Titles Time In 11/08/23 14:12:00 11/08/23 14:12:00 11/08/23 14:12:00 Time Out 11/08/23 14:33:00 11/08/23 14:33:00 11/08/23 14:33:00 Procedure COLONOSCOPY(.) COLONOSCOPY(.) COLONOSCOPY(.) Comments Dr. Regalado supervising Last Modified By: David PAK, Kika Hernandez RN, Kika Santana RN 11/08/23 15:07:16 11/08/23 15:07:16 11/08/23 15:07:16 Entry 4 Entry 5 Case Attendee Rachelle Garnica Kirstyn K Role Performed Scrub - Primary Staff - Other Time In 11/08/23 14:12:00 11/08/23 14:12:00 Time Out 11/08/23 14:33:00 11/08/23 14:33:00 Procedure COLONOSCOPY(.) COLONOSCOPY(.) Comments help in room Last Modified By: Kika Hernandez RN, RN, Angela 11/08/23 15:07:16 11/08/23 15:07:16 Perioperative Protocols FT Pre-Care Text: Implements protective measures prior to operative or invasive procedure, confirms identity before the operative or invasive procedure, verifies operative procedure, surgical site, and laterality Entry 1 Procedure(s) COLONOSCOPY(.) Patient Identity Birthday, ID Band Verified (select at Check, Patient least 2): Participation Consents / H and P Anesthesia Consent, Operative Site N/A Verified H&P, Surgery/Procedure Marking Verified Consent Surgical Site No Laterality Verified n/a Verified Procedure Verified Yes Correct Patient Yes Position Verified Availability Equipment, Medication Prep Dry n/a Verified (If Applicable) PreOp Antibiotic No Time Out Dariela Alvarez MD Given Participants David Alvarez RN, Lisa Anand John C., Sparks, Micala E, Miles, Kirstyn K Time Out Complete 11/08/23 14:14:00 Outcomes Met? Yes Last Modified By: Kika Hernandez RN 11/08/23 14:21:53 Post-Care Text: The patient is free from signs and symptoms of injury caused by extraneous objects Allergy Information FT Pre-Care Text: Verifies allergies Entry 1 Allergies Reviewed? Yes Allergies Reviewed Self/Patient With Outcomes Met? Yes Last Modified By: Kika Hernandez RN 11/08/23 14:22:49 Post-Care Text: The patient received appropriate medication(s) safely administered during the perioperative period Surgical Procedures FT Entry 1 Procedure Description Procedure COLONOSCOPY Modifiers . Surgeon Description COLONOSCOPY with cecal polypectomy, transverse colon polypectomy x2 Primary Procedure Yes Primary Surgeon Dariela Alvarez MD Start 11/08/23 14:15:00 Stop 11/08/23 14:29:00 Anesthesia Type General Surgical Service Gastroenterology Wound Class 2 - Clean-Contaminated Last Modified By: Kika Hernandez RN 11/08/23 14:31:38 General Case Data FT Pre-Care Text: Classifies surgical wound, implements aseptic technique, initiates traffic control Entry 1 Case Information OR ENDO 1 FT Case Level Level 2 Wound Class 2 - Clean-Contaminated Specialty Gastroenterology ASA Class 3 Preop Diagnosis LOWER ABDOMINAL PAIN, Postop Same As Preop No DIVERTICULITIS, FAMILY HX OF COLON CANCER Postop Diagnosis Cecal polyp, severe Outcomes Met? Yes diverticulosis, transverse colon polyps x2 Last Modified By: Kika Hernandez RN 11/08/23 14:27:15 Post-Care Text: The patient is free from signs and symptoms of infection Skin Assessment (Pre Procedure) FT Pre-Care Text: Implements protective measures to prevent skin/ tissue injury due to thermal or mechanical sources Evaluates for signs and symptoms of physical injury to skin and tissue Entry 1 Skin Integrity Intact, [place], Warm, & Skin Abnormality No Dry Outcomes Met? Yes Last Modified By: Kika Hernandez RN 11/08/23 14:23:25 Post-Care Text: The patient is free from signs and symptoms of injury caused by extraneous objects Patient Positioning FT Pre-Care Text: Identifies physical alterations that require additional precautions for procedure-specific positioning, verifies presence of prosthetics or corrective devices, positions the patient, evaluates the p (more content not included)... Normal [facility] Discharge Instructionson Discharge Instructions Discharge Instructions KAMILLA SOSA :1975 Visit Date:11/08/2023 Inpatient Discharge Instructions Your Care Team Admitting Physician - Dariela Alvarez MD Referring Physician - Dariela Alvarez MD Reason for Your Visit LOWER ABDOMINAL PAIN, DIVERTICULITIS, FAMILY HX OF COLON CANCER Your Diagnosis Family history of colon cancer Tests Performed Pathology Tissue Exam -- Results Pending -- Please visit your patient portal for your results or contact your primary care physician. This Is Your Medications List cariprazine (Vraylar 3 mg oral capsule) gabapentin (gabapentin 400 mg Cap) ixekizumab (Taltz Prefilled Syringe 80 mg/mL subcutaneous solution) lamotrigine (Lamictal 200 mg Tab) naltrexone (naltrexone 50 mg oral tablet) naproxen (Naprosyn 500 mg Tab) topiramate (Topamax 50 mg Tab) ubrogepant (Ubrelvy 50 mg oral tablet) Procedure History Colonoscopy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 Comment on above: Performed By: #### C ANGIE YAN, CP ####[facility] [id number] [place] [address] Lab Director: Rome Wallace MD Abs.Imm.Granulocyte 0.02 k/uL Normal 0.00-0.30 [facility] Comment on above: Performed By: #### C ANGIE YAN, CP ####[facility] [address] [place] [address] Lab Director: Rome Wallace MD Abs.Neutrophil (Seg) 5.94 k/uL Normal 2.5-7.0 [facility] Comment on above: Performed By: #### C ANGIE YAN, CP ####[facility] [address] [place] [address] Lab Director: Rome Wallace MD Basophils/100 WBC (Bld) 0 % Normal 0-2 [facility] Comment on above: Performed By: #### C ANGIE YAN, CP ####[facility] [id number] [place] [address] Lab Director: Rome Wallace MD Eosinophils (Bld) [#/Vol] 0.09 10*3/uL Normal 0.00-0.40 [facility] Comment on above: Performed By: #### C DP, LIP, CP ####[facility] [id number] [place] [address] Lab Director: Rome Wallace MD Eosinophils/100 WBC (Bld) 1 % Normal 0-5 [facility] Comment on above: Performed By: #### C DP, LIP, CP ####[facility] [address] [place] [address] Lab Director: Rome Wallace MD Erythrocyte distribution width (RBC) [Ratio] 12.4 % Normal 12.1-15.2 [facility] Comment on above: Performed By: #### C DP, LIP, CP ####[facility] [address] [place] [address] Lab Director: Rome Wallace MD Hematocrit (Bld) [Volume fraction] 38.2 % Normal 36.0-46.0 [facility] Comment on above: Performed By: #### C DP, LIP, CP ####[facility] [address] [place] [address] Lab Director: Rome Wallace MD Hemoglobin (Bld) [Mass/Vol] 13.3 g/dL Normal 12.0-16.0 [facility] Comment on above: Performed By: #### C DP, LIP, CP ####[facility] [id number] [place] [address] Lab Director: Rome Wallace MD Immature granulocytes/100 WBC (Bld) 0 % Normal 0-5 [facility] Comment on above: Performed By: #### C DP, LIP, CP ####[facility] [address] [place] [address] Lab Director: Rome Wallace MD Lymphocytes (Bld) [#/Vol] 2.03 10*3/uL Normal 1.00-4.80 [facility] Comment on above: Performed By: #### C ANGIE YAN, CP ####[facility] [address] [facility], [place] [address] Lab Director: Rome Wallace MD Lymphocytes/100 WBC (Bld) 23 % Normal 15-40 [facility] Comment on above: Performed By: #### C FARRAH LIP, CP ####[facility] [address] [place] [address] Lab Director: Rome Wallace MD MCH (RBC) [Entitic mass] 30.5 pg Normal 26.0-34.0 [facility] Comment on above: Performed By: #### C ANGIE YAN, CP ####[facility] [address] [place] [address] Lab Director: Rome Wallace MD MCHC (RBC) [Mass/Vol] 34.8 g/dL Normal 31.0-37.0 [facility] Comment on above: Performed By: #### C ANGIE YAN, CP ####[facility] [id number] [place] [address] Lab Director: Rome Wallace MD MCV (RBC) [Entitic vol] 87.6 fL Normal 80.0-100.0 [facility] Comment on above: Performed By: #### C ANGIE YAN, CP ####[facility] [address] [place] [address] Lab Director: Rome Wallace MD Monocytes (Bld) [#/Vol] 0.61 10*3/uL Normal 0.00-1.00 [facility] Comment on above: Performed By: #### C FARRAH LIP, CP ####[facility] [address] [place] [address] Lab Director: Rome Wallace MD Monocytes/100 WBC (Bld) 7 % Normal 4-8 [facility] Comment on above: Performed By: #### C DP, LIP, CP ####[facility] [address] [place] [address] Lab Director: Rome Wallace MD Neutrophil (Seg) 69 % Normal 47-75 [facility] Comment on above: Performed By: #### C DP, LIP, CP ####[facility] [address] [place], [place] [phone] Director: Rome Wallace MD Platelet mean volume (Bld) [Entitic vol] 8.5 fL Normal 6.0-12.0 [facility] Comment on above: Performed By: #### C DP, LIP, CP ####[facility] [address] [place] [phone] Director: Rome Wallace MD Platelets (Bld) [#/Vol] 193 10*3/uL Normal 140-450 [facility] Comment on above: Performed By: #### C DP LIP, CP ####[facility] [id number] [facility] [place] [address] Lab Director: Rome Wallace MD RBC (Bld) [#/Vol] 4.36 10*6/uL Normal 4.00-5.20 [facility] Comment on above: Performed By: #### C DP, LIP, CP ####[facility] [address] [facility] [place] [address] Lab Director: Rome Wallace MD WBC (Bld) [#/Vol] 8.7 10*3/uL Normal 3.5-11.0 [facility] Comment on above: Performed By: #### C DP, LIP, CP ####[facility] [id number] [place], [place] [phone] Director: Rome Wallace MD CT Abdomen and Pelvis WO con traston 07-03-2023 1. Mild acute diverticulitis of the distal descending colon. No abscess or perforation at this time. 2. No radiopaque renal calculi or evidence of urinary obstruction. PN RIS CONSOLIDATED Dm Aguirre MD - 07/03/2023 PROCEDURE: CT ABDOMEN PELVIS WO CONTRAST CLINICAL INDICATION: 47 years Female Left flank and abdominal pain COMPARISONS: None.. TECHNIQUE: CT imaging of the abdomen and pelvis was performed without oral or intravenous contrast. Coronal and sagittal reformations were created. Individualized dose optimization technique was used for the procedure performed. FINDINGS: Limited visualization of lung bases is unremarkable. There is no pleural or pericardial effusion. Gallbladder is surgically absent. Liver, spleen, pancreas, adrenal glands and kidneys are normal. No radiopaque renal calculi are seen. There is no hydronephrosis on either side. Bowel loops are normal in course and caliber, there is no obstruction or free air. There is mild diverticulosis of the distal descending and sigmoid colon. Mild inflammatory changes along the distal descending colon are consistent with acute diverticulitis. Appendix and uterus are surgically absent. There is no ascites or adenopathy. There are mild vascular calcifications. There is moderate facet arthropathy within the lower lumbar spine. IMPRESSION: 1. Mild acute diverticulitis of the distal descending colon. No abscess or perforation at this time. 2. No radiopaque renal calculi or evidence of urinary obstruction. [facility] Radiology Study observation (narrative) [facility] CT Abdomen and Pelvis WO con trastOrdered By: Dm Aguirre on 07-03-2023 [facility] Work Phone: Comp Metabolic Profon 2023 Albumin [Mass/Vol] 4.1 g/dL Normal 3.5-5.2 [facility] Comment on above: Performed By: #### C DP, LIP, CP ####[facility] [id number] [place], [place] [id number] lab Director: Rome Wallace MD Alkaline Phos 72 U/L Normal 35-104 [facility] Comment on above: Performed By: #### C DP, LIP, CP ####[facility] [id number] [place] [address] Lab Director: Rome Wallace MD ALT [Catalytic activity/Vol] 14 U/L Normal 5-33 [facility] Comment on above: Performed By: #### C ANGIE YAN, CP ####[facility] [id number] [place] [address] Lab Director: Rome Wallace MD Anion gap [Moles/Vol] 12 mmol/L Normal 9-17 [facility] Comment on above: Performed By: #### C ANGIE YAN, CP ####[facility] [id number] [place] [address] Lab Director: Rome Wallace MD AST [Catalytic activity/Vol] 15 U/L Normal <32 [facility] Comment on above: Performed By: #### C ANGIE YAN, CP ####[facility] [address] [place] [address] Lab Director: Rome Wallace MD Bilirubin [Mass/Vol] 0.8 mg/dL Normal 0.3-1.2 [facility] Comment on above: Performed By: #### C ANGIE YAN, CP ####[facility] [address] [place] [place] [address] Lab Director: Rome Wallace MD BUN/CRE Ratio 13 Normal 9-20 [facility] Comment on above: Performed By: #### C FARRAH LIP, CP ####[facility] [address] [place] [address] Lab Director: Rome Wallace MD Calcium [Mass/Vol] 9.4 mg/dL Normal 8.6-10.4 [facility] Comment on above: Performed By: #### C FARRAH LIP, CP ####[facility] [address] [place] [address] Lab Director: Rome Wallace MD Chloride [Moles/Vol] 106 mmol/L Normal 98-107 [facility] Comment on above: Performed By: #### C FARRAH LIP, CP ####[facility] [id number] [facility] [place] [address] Lab Director: Rome Wallace MD CO2 [Moles/Vol] 21 mmol/L Normal 20-31 [facility] Comment on above: Performed By: #### C FARRAH LIP, CP ####[facility] [address] [place] [address] Lab Director: Rome Wallace MD Creatinine [Mass/Vol] 0.8 mg/dL Normal 0.5-0.9 [facility] Comment on above: Performed By: #### C ANGIE YAN, CP ####[facility] [address] [place] [address] Lab Director: Rome Wallace MD GFR/1.73 sq M.predicted among non-blacks MDRD (S/P/Bld) [Vol rate/Area] mL/min/{1.73_m2} Normal >60 [facility] Comment on above: Result Comment: These results are not intended for use in patients <18 years of age. eGFR results are calculated without a race factor using the 2020 CKD-EPI equation. Careful clinical correlation is recommended, particularly when comparing to results calculated using previous equations. The CKD-EPI equation is less accurate in patients with extremes of muscle mass, extra-renal metabolism of creatine, excessive creatine ingestion, or following therapy that affects renal tubular secretion. Performed By: #### C FARRAH LIP, CP ####[facility] [address] [place] [address] Lab Director: Rome Wallace MD Glucose [Mass/Vol] 91 mg/dL Normal 70-99 [facility] Comment on above: Performed By: #### C FARRAH LIP, CP ####[facility] [address] [place] [address] Lab Director: Rome Wallace MD Potassium [Moles/Vol] 4.0 mmol/L Normal 3.7-5.3 [facility] Comment on above: Performed By: #### C ANGIE YAN, CP ####[facility] [address] [place] [address] lab Director: Rome Wallace MD Protein [Mass/Vol] 7.0 g/dL Normal 6.4-8.3 [facility] Comment on above: Performed By: #### C ANGIE YAN, CP ####[facility] [address] [place] [address] lab Director: Rome Wallace MD Sodium [Moles/Vol] 139 mmol/L Normal 135-144 [facility] Comment on above: Performed By: #### C ANGIE YAN CP ####[facility] [address] [place] [address] lab Director: Rome Wallace MD Urea nitrogen [Mass/Vol] 10 mg/dL Normal 6-20 [facility] Comment on above: Performed By: #### C ANGIE YAN CP ####[facility] [address] [place] [address] lab Director: Rome Wallace MD Comprehensive Metabolic Pane [facility] 07-03-2023 Albumin [Mass/Vol] 4.1 g/dL 3.5 - 5.2 g/dL [facility] ALP [Catalytic activity/Vol] 72 U/L 35 - 104 U/L [facility] ALT [Catalytic activity/Vol] 14 U/L 5 - 33 U/L [facility] Anion gap [Moles/Vol] 12 mmol/L 9 - 17 mmol/L [facility] AST [Catalytic activity/Vol] 15 U/L NINF - 32 U/L [facility] Bilirubin [Mass/Vol] 0.8 mg/dL 0.3 - 1 .2 mg/dL [facility] Calcium [Mass/Vol] 9.4 mg/dL 8.6 - 10. 4 mg/dL [facility] Chloride [Moles/Vol] 106 mmol/L 98 - 10 7 mmol/L [facility] CO2 [Moles/Vol] 21 mmol/L 20 - 31 mmol/L [facility] Creatinine [Mass/Vol] 0.8 mg/dL 0.5 - 0.9 mg/dL [facility] GFR/1.73 sq M.predicted MDRD (S/P/Bld) [Vol rate/Area] - PINF [facility] Comment on above: These results are not intended for use in patients <18 years of age. eGFR results are calculated without a race factor using the 2020 CKD-EPI equation. Careful clinical correlation is recommended, particularly when comparing to results calculated using previous equations. The CKD-EPI equation is less accurate in patients with extremes of muscle mass, extra-renal metabolism of creatine, excessive creatine ingestion, or following therapy that affects renal tubular secretion. Glucose [Mass/Vol] 91 mg/dL 70 - 99 mg/dL [facility] Potassium [Moles/Vol] 4.0 mmol/L 3.7 - 5.3 mmol/L [facility] Protein [Mass/Vol] 7.0 g/dL 6.4 - 8.3 g/dL [facility] Sodium [Moles/Vol] 139 mmol/L 135 - 144 mmol/L [facility] Urea nitrogen [Mass/Vol] 10 mg/dL 6 - 20 mg/dL [facility] Urea nitrogen/Creatinine [Mass ratio] 13 mg/mg 9 - 20 [facility] Lipaseon 07-03-2023 Lipase [Catalytic activity/Vol] 52 U/L 13 - 60 U/L [facility] Lipase [Catalytic activity/Vol] 52 U/L Normal 13-60 [facility] Comment on above: Performed By: #### C ANGIE YAN CP ####[facility] [id number] [place] [address] lab Director: Rome Wallace MD Microscopic Urinalysison - [facility] Epithelial cells LM.HPF (Urine sed) [#/Area] 0 TO 2 /HPF [facility] RBC LM.HPF (Urine sed) [#/Area] NONE SEEN [facility] WBC LM.HPF (Urine sed) [#/Area] 0 TO 2 0 /HPF [facility] No Panel Informationon 07-02 [facility] Urinalysison 07-03-2023 Bilirubin Ql (U) Negative NEGATIVE [facility] Clarity (U) Clear Clear [facility] Color (U) Yellow Yellow [facility] Comment [facility] Glucose Test strip (U) [Mass/Vol] Negative NEGATIVE mg/dL [facility] Hemoglobin Auto test strip Ql (U) Negative NEGATIVE [facility] Interpretation and review of laboratory results Abnormal [facility] Ketones (U) [Mass/Vol] Negative NEGATIVE mg/dL [facility] Leukocyte esterase Test strip Ql (U) 1+ Abnormal NEGATIVE [facility] Nitrite Ql (U) Negative NEGATIVE [facility] pH (U) 6.0 [pH] 5.0 - 8.0 [facility] Protein (U) [Mass/Vol] Negative NEGATIVE mg/dL [facility] Specific gravity (U) [Rel density] 1.015 1.005 - 1.030 [facility] Urobilinogen Qn (U) Normal 0.0 - 1. 0 EU/dL [facility] Urinalysis, Routineon 2023 Bilirubin, SemiQt,Ur Negative Normal NEG [facility] Comment on above: Performed By: #### U A, UMICAO #### [facility] [address] [place] [address] [employer]: Rome Wallace MD Blood, Urine Negative Normal NEG [facility] Comment on above: Performed By: #### U A, UMICAO #### [facility] [address] [place] [address] [employer]: Rome Wallace MD Clarity (U) Clear Normal CLEAR [facility] Comment on above: Performed By: #### U A, UMICAO #### [facility] [address] [place] [address] [employer]: Rome Wallace MD Color (U) Yellow Normal YEL [facility] Comment on above: Performed By: #### U A, UMICAO #### [facility] [address] [place], [place] [phone] [employer]: Rome Wallace MD Comment Normal [facility] Comment on above: Performed By: #### U A, UMICAO #### [facility] [address] [place], [place] [phone] [employer]: Rome Wallace MD Glucose Ql (U) Negative Normal NEG [facility] Comment on above: Performed By: #### U A, UMICAO #### [facility] [address] [place], [place] [phone] [employer]: Rome Wallace MD Ketones Ql (U) Negative Normal NEG [facility] Comment on above: Performed By: #### U A, UMICAO #### [facility] [address] [place] [address] [employer]: Rome Wallace MD Leukocyte esterase Test strip Ql (U) 1+ Abnormal NEG [facility] Comment on above: Performed By: #### U A, UMICAO #### [facility] [address] [place] [address] [employer]: Rome Wallace MD Nitrite,Ur Negative Normal NEG [facility] Comment on above: Performed By: #### U A, UMICAO #### [facility] [address] [place] [address] [employer]: Rome Wallace MD PH,Ur 6.0 Normal 5.0-8.0 [facility] Comment on above: Performed By: #### U A, UMICAO #### [facility] [address] [place], [place] [phone] [employer]: Rome Wallace MD Protein Ql (U) Negative Normal NEG [facility] Comment on above: Performed By: #### U A, UMICAO #### [facility] [address] [place], [place] [phone] [employer]: Rome Wallace MD Spec. [place],Ur 1.015 Normal 1.005-1.030 [facility] Comment on above: Performed By: #### U A, UMICAO #### [facility] [address] [place], [place] [phone] [employer]: Rome Wallace MD Urobilinogen,Ur Normal Normal 0.0-1.0 [facility] Comment on above: Performed By: #### U A, UMICAO #### [facility] [address] [place], [place] [phone] [employer]: Rome Wallace MD Urinalysis,Microon 4 ----- Normal [facility] Comment on above: Performed By: #### U A, UMICAO #### [facility] [address] [place] [address] [employer]: Rome Wallace MD Epithelial cells LM Ql (Urine sed) 0 TO 2 Normal [facility] Comment on above: Performed By: #### U A, UMICAO #### [facility] [address] [place], [place] [id number] [employer]: Rome Wallace MD Urine RBC's NONE SEEN Normal 0-2 [facility] Comment on above: Performed By: #### U A, UMICAO #### [facility] [address] [place], [place] [phone] [employer]: Rome Wallace MD Urine WBC's 0 TO 2 Normal 0 [facility] Comment on above: Performed By: #### U A, SANTOS #### [facility] [address] [place] [address] [employer]: Rome Wallace MD Nonvisit Note - PTon 024 Nonvisit Note - PT Cxl in reminder (Viewing SMS reminder Message sent on 05/10/2023 at 10:28 am to . The Response was 'Cancelled'.) Normal [facility] Nonvisit Note - PTon 024 Nonvisit Note - PT Cancel by remind system. Normal [facility] COVID-19, Rapidon 05-06-2023 Interpretation and review of laboratory results Abnormal [facility] SARS-CoV-2 (COVID-19) RdRp gene LIANA+probe Ql (Resp) Detected Abnormal Not Detected [facility] Comment on above: Rapid NAAT: The specimen is POSITIVE for SARS-Cov-2, the novel coronavirus associated with COVID-19. This test has been authorized by the FDA under an Emergency Use Authorization (EUA) for use by authorized laboratories. The ID NOW COVID-19 assay is designed to detect the virus that causes COVID-19 in patients with signs and symptoms of infection who are suspected of COVID-19. An individual without symptoms of COVID-19 and who is not shedding SARS-CoV-2 virus would expect to have a negative (not detected) result in this assay. Fact sheet for Healthcare Providers: https://www.fda.gov/media/855447/download Fact sheet for Patients: https://www.fda.gov/media/652617/download Methodology: Isothermal Nucleic Acid Amplification Results reported to the appropriate Health Department Specimen Description .NASOPHARYNGEAL SWAB [facility] Rapid Strep Screenon 024 Specimen source Nom (Unsp spec) .THROAT SWAB [facility] Strep A, Molecular Negative NEGATIVE [facility] Rapid influenza A/B antigens on 05-06-2023 FLUAV Ag Ql (Unsp spec) Negative NEGATIVE [facility] Comment on above: for Influenza A Anti gen FLUBV Ag Ql (Unsp spec) Negative NEGATIVE [facility] Comment on above: for Influenza B Anti gen. [facility] Nonvisit Note - PTon 024 Nonvisit Note - PT sick [facility] Nonvisit Note - PTon 024 Nonvisit Note - PT Has vet appt. Normal Fis [facility] PT - [place] 04-13-2023 PT - Orders [id number] #1.00TIFF [facility] Consent for Treatmenton Consent for Treatment [id number] #1.00TIFF [facility] PT - Assessmentson PT - Assessments [id number] #1.00TIFF [facility] PT - Consentson 04-12-2023 PT - Consents [id number] #1.00TIFF [facility] PT - Home Exercise Programon 04-12-2023 PT - Home Exercise Program [id number] #1.00TIFF [facility] PT - [place] 04-12-2023 PT - Orders [id number] 2#1.00TIFF [facility] Consent for Treatmenton 03-07 Consent for Treatment [id number] #1.00TIFF [facility] Physician Orderon 04-03-2023 Physician Order [id number] #1.00TIFF [facility] XR Spine Lumbosacral Minimum 4 Viewson 04-03-2023 XR Spine Lumbosacral Minimum 4 Views Exam Date/Time: 04/03/2023 12:23 EST Reason for Exam: pain Report IMPRESSION: NEGATIVE LUMBOSACRAL SPINE SERIES. CLINICAL HISTORY: pain COMPARISON: Lumbar spine series, January 27, 2020. FINDINGS: 6 views of the lumbosacral spine demonstrate no evidence of a fracture, subluxation, bone or joint abnormality. Ordering Provider: Nimco Armas FINAL REPORT Dictated: 04/03/2023 12:49 pm Ellis Ellis MD Signed (Electronic Signature): 04/03/2023 12:49 pm Signed by: Ellis Ellis MD Transcribed by: FARRAH Technologist: TONY Technical Comments Radiation Dose: Kar in mGy = . DAP = . Normal [facility] CHEMISTRYOrdered By: SYSTEM SYSTEM on 09-07-2022 25-hydroxyvitamin D3 [Mass/Vol] 21.4 ng/mL Low 30.0 - 100.0 ng/mL [facility] Albumin [Mass/Vol] 4.1 g/dL Normal 3.3 - 5.0 gm/dL [facility] Albumin/Globulin [Mass ratio] 1.3 {ratio} Normal 1.1 - 2.2 [facility] ALP [Catalytic activity/Vol] 44 [iU]/d Normal 21 - 98 Int._Unit/L [facility] ALT No additional P-5'-P [Catalytic activity/Vol] 19 [iU]/d Normal 6 - 46 Int._Unit/L [facility] Anion gap [Moles/Vol] 10 mmol/L Normal 6 - 16 mEq/L [facility] AST [Catalytic activity/Vol] 23 [iU]/d Normal 5 - 43 Int._Unit/L [facility] Bilirubin [Mass/Vol] 0.8 mg/dL Normal 0.0 - 1 .1 mg/dL [facility] Calcium [Mass/Vol] 9.2 mg/dL Normal 8.9 - 11. 1 mg/dL [facility] Chloride [Moles/Vol] 114 mmol/L High 101 - 1 11 mmol/L [facility] Cholesterol [Mass/Vol] 194 mg/dL Normal 120 - 200 mg/dL [facility] Cholesterol in HDL [Mass/Vol] 46 mg/dL Invalid Interpretation Code [facility] Cholesterol in LDL [Mass/Vol] 116 mg/dL Normal <=129mg/dL [facility] Cholesterol in VLDL [Mass/Vol] 43 mg/dL High 7 - 40 mg/dL [facility] CO2 [Moles/Vol] 21 mmol/L Normal 21 - 31 mmol/L [facility] Cobalamin (Vitamin B12) [Mass/Vol] 231 pg/mL Normal 50 - 1500 pg/mL [facility] Creatinine [Mass/Vol] 1.0 mg/dL Normal 0.5 - 1.3 mg/dL [facility] GFR/1.73 sq M.predicted among non-blacks MDRD (S/P/Bld) [Vol rate/Area] 71 mL/min/1.73 m2 Normal >=59mL/min/1 .73 m2 [facility] S Globulin (S) [Mass/Vol] 3.1 g/dL Normal 1.4 - 4.0 gm/dL [facility] Glucose [Mass/Vol] 94 mg/dL Normal 55 - 199 mg/dL [facility] Potassium [Moles/Vol] 4.1 mmol/L Normal 3.5 - 5.3 mmol/L [facility] Protein [Mass/Vol] 7.2 g/dL Normal 6.0 - 7.8 gm/dL [facility] Sodium [Moles/Vol] 141 mmol/L Normal 135 - 145 mmol/L [facility] Triglyceride [Mass/Vol] 215 mg/dL High <=149mg/dL [facility] TSH Qn 0.80 m[IU]/L Normal 0.34 - 5.60 mcIU/mL [facility] Urea nitrogen [Mass/Vol] 13 mg/dL Normal 5 - 21 mg/dL [facility] Urea nitrogen/Creatinine [Mass ratio] 13 mg/mg Normal 10 - 20 [facility] CHEMISTRYOrdered By: Arnoldo fernandes on 09-07-2022 HbA1c (Bld) [Mass fraction] 4.9 % Normal <=5.9% [facility] CHEMISTRYOrdered By: SYSTEM SYSTEM on 11-13-2021 Albumin [Mass/Vol] 4.5 g/dL Normal 3.3 - 5.0 gm/dL [facility] Albumin/Globulin [Mass ratio] 1.2 {ratio} Normal 1.1 - 2.2 [facility] ALP [Catalytic activity/Vol] 54 [iU]/d Normal 21 - 98 Int._Unit/L [facility] ALT No additional P-5'-P [Catalytic activity/Vol] 25 [iU]/d Normal 6 - 46 Int._Unit/L [facility] Anion gap [Moles/Vol] 15 mmol/L Normal 6 - 16 mEq/L [facility] AST [Catalytic activity/Vol] 27 [iU]/d Normal 5 - 43 Int._Unit/L [facility] Bilirubin [Mass/Vol] 1.0 mg/dL Normal 0.0 - 1 .1 mg/dL [facility] Bilirubin.direct [Mass/Vol] 0.2 mg/dL Normal 0.1 - 0.4 mg/dL [facility] Bilirubin.indirect [Mass or moles/Vol] 0.8 mg/dL Normal 0.1 - 0.9 mg/dL [facility] Calcium [Mass/Vol] 9.4 mg/dL Normal 8.9 - 11. 1 mg/dL [facility] Chloride [Moles/Vol] 107 mmol/L Normal 101 - 1 11 mmol/L [facility] CO2 [Moles/Vol] 19 mmol/L Low 21 - 31 mmol/L [facility] Creatinine [Mass/Vol] 1.1 mg/dL Normal 0.5 - 1.3 mg/dL [facility] GFR/1.73 sq M.predicted among blacks MDRD (S/P/Bld) [Vol rate/Area] mL/min/1.73 m2 Normal >=59mL/min/1 .73 m2 [facility] Chem S GFR/1.73 sq M.predicted among non-blacks MDRD (S/P/Bld) [Vol rate/Area] 54 mL/min/1.73 m2 Low >=59mL/min/1 .73 m2 [facility] Globulin (S) [Mass/Vol] 3.6 g/dL Normal 1.4 - 4.0 gm/dL [facility] Glucose [Mass/Vol] 97 mg/dL Normal 55 - 199 mg/dL [facility] Magnesium [Mass/Vol] 2.1 mg/dL Normal 1.3 - 2 .4 mg/dL [facility] Potassium [Moles/Vol] 4.0 mmol/L Normal 3.5 - 5.3 mmol/L [facility] Protein [Mass/Vol] 8.1 g/dL High 6.0 - 7.8 gm/dL [facility] Sodium [Moles/Vol] 137 mmol/L Normal 135 - 145 mmol/L [facility] Urea nitrogen [Mass/Vol] 16 mg/dL Normal 5 - 21 mg/dL [facility] Urea nitrogen/Creatinine [Mass ratio] 14 mg/mg Normal 10 - 20 [facility] COAGULATIONOrdered By: Kalpesh Liu on 11-13-2021 aPTT Coag (PPP) [Time] 29.8 s Normal 25.1 - 36.5 second(s) [facility] Auto Coag Fibrin D-dimer FEU (PPP) [Mass/Vol] 332 ng/mL FEU Normal 215 - 500 ng/mL FEU [facility] INR Coag (PPP) [Relative time] 1.0 {INR} Invalid Interpretation Code [facility] Auto Coag PT Coag (PPP) [Time] 11.3 s Normal 9.4 - 1 2.5 second(s) [facility]ag HEMATOLOGYOrdered By: SYSTEM SYSTEM on 11-13-2021 Basophils/100 WBC (Bld) 0.7 % Normal 0.0 - 2.0 % [facility] Basophils/Leukocytes Auto (Bld) [Pure # fraction] 0.1 E9/L Normal 0.0 - 0.2 E9/L [facility] Eosinophils/100 WBC (Bld) 1.1 % Normal 0.0 - 8.0 % [facility] Eosinophils/Leukocyte s Auto (Bld) [Pure # fraction] 0.1 E9/L Normal 0.0 - 0.5 E9/L [facility] Lymphocytes/100 WBC (Bld) 21.1 % Normal 14.0 - 50.0 % [facility] Lymphocytes/Leukocyte s Auto (Bld) [Pure # fraction] 2.4 E9/L Normal 1.0 - 4.0 E9/L [facility] Monocytes/100 WBC (Bld) 5.8 % Normal 4.0 - 14.0 % [facility] Monocytes/Leukocytes Auto (Bld) [Pure # fraction] 0.7 E9/L Normal 0.2 - 1.0 E9/L [facility] Neutrophils/100 WBC (Bld) 71.3 % Normal 36.0 - 75.0 % [facility] Neutrophils/Leukocyte s Auto (Bld) [Pure # fraction] 8.1 E9/L High 2.0 - 7.5 E9/L [facility] HEMATOLOGYOrdered By: aKlpesh Liu on 11-13-2021 Erythrocyte distribution width (RBC) [Ratio] 13.0 % Normal 10.9 - 14.2 % [facility] Hematocrit (Bld) [Volume fraction] 40.7 % Normal 34.0 - 46.0 % [facility] Hemoglobin (Bld) [Mass/Vol] 13.6 g/dL Normal 12.0 - 16.0 gm/dL [facility] MCH (RBC) [Entitic mass] 30.5 pg Normal 27.0 - 34.0 pg [facility] MCHC (RBC) [Mass/Vol] 33.4 g/dL Normal 31.4 - 36.0 gm/dL [facility] MCV (RBC) [Entitic vol] 91.5 fL Normal 80.0 - 100.0 fL [facility] Platelet mean volume (Bld) [Entitic vol] 6.8 fL Normal 6.4 - 10.8 fL [facility] Platelets (Bld) [#/Vol] 199.0 E9/L Normal 150.0 - 500.0 E9/L [facility] RBC (Bld) [#/Vol] 4.4 E12/L Normal 4.3 - 5.9 E12/L [facility] WBC corrected for nucl RBC Auto (Bld) [#/Vol] 11.3 E9/L High 4.0 - 11.0 E9/L [facility] Laboratory - Chemistry and C hemistry - challengeOrdered By: SYSTEM SYSTEM on 11-13-2021 Troponin I.cardiac [Mass/Vol] pg/mL Low 10.10 - 27.10 pg/mL [facility] XR FEMUR RTon 04-12-2021 XR FEMUR RT EXAM: XR FEMUR RT HISTORY: Pain COMPARISON: None. TECHNIQUE: 2 views of the right femur were obtained. FINDINGS: No acute fracture or dislocation is seen. The right femoral head is well-seated in the acetabulum. The right hip joint and pubic symphysis are preserved. There is a possible small right knee joint effusion. IMPRESSION: 1. Possible small right knee joint effusion with no acute fracture or dislocation of the right femur seen. If there is concern for an occult injury, cross-sectional imaging is recommended. Electronically authenticated by: Tejas MONTAÑO Date: 2021-04-11 22:43 Normal [facility] XR LSPINE 2_3 VIEWSon 2021 XR LSPINE 2_3 VIEWS EXAMINATION: XR LSPINE 2_3 VIEWS, , 04/11/2021 9:42 PM EST INDICATION: Pain HISTORY: Ordering Provider Reason for Exam: Technologist Note: Additional: COMPARISON: None. TECHNIQUE: Lumbar spine x-ray: 3 view(s). FINDINGS: No acute fracture or traumatic malalignment. Normal lumbar lordosis. No listhesis. No abnormal curvature. Vertebral body heights are normal. Disc heights are maintained. Visualized soft tissues are unremarkable. Large volume of stool is seen in the colon. IMPRESSION: No acute fracture or traumatic malalignment. Electronically authenticated by: DEBBIE VIEYRA Date: 2021-04-11 22:35 Normal [facility] XR PELVIS 1_2 VIEWSon 2021 XR PELVIS 1_2 VIEWS EXAM: XR PELVIS 1_2 VIEWS HISTORY: Pain COMPARISON: None. TECHNIQUE: Single frontal view of the pelvis FINDINGS: No obvious acute fracture is seen. Joint alignment is normal. Joint spaces are preserved. Soft tissues are unremarkable. IMPRESSION: No acute fracture or malalignment. Electronically authenticated by: DEBBIE VIEYRA Date: 2021-04-11 22:34 Normal [facility] XR TIB_FIB RT 2Von 2 XR TIB_FIB RT 2V EXAM: XR TIB_FIB RT 2V HISTORY: Pain COMPARISON: None. TECHNIQUE: 2 views right tibia and fibula FINDINGS: No acute fracture is seen. Alignment of the osseous structures is normal. Soft tissues are unremarkable. IMPRESSION: No acute fracture of the right tibia and fibula. Electronically authenticated by: DEBBIE VIEYRA Date: 2021-04-11 22:35 Normal [facility] Drug screen multi urineon Amphetamine Screen, Ur Negative NEGATIVE [facility] Comment on above: (Positive cutoff 500 ng/mL) Barbiturate Screen, Ur Negative NEGATIVE [place] Comment on above: (Positive cutoff 200 ng/mL) Benzodiazepine Screen, Urine Negative NEGATIVE [place] Comment on above: (Positive cutoff 150 ng/mL) Buprenorphine Urine NOT REPORTED NEGATIVE [place] Cannabinoid Scrn, Ur Negative NEGATIVE [place] Comment on above: (Positive cutoff 50 ng/mL) Cocaine Metabolite, Urine Negative NEGATIVE [place] Comment on above: (Positive cutoff 150 ng/mL) Interpretation and review of laboratory results Abnormal [place] MDMA, Urine NOT REPORTED NEGATIVE [place] Methadone Screen, Urine Negative NEGATIVE [place] Comment on above: (Positive cutoff 200 ng/mL) Methamphetamine, Urine Negative NEGATIVE [place] Comment on above: (Positive cutoff 500 ng/mL) Opiates, Urine Negative NEGATIVE [place] Comment on above: (Positive cutoff 100 ng/mL) Oxycodone Screen, Ur Positive Abnormal NEGATIVE [place] Comment on above: (Positive cutoff 100 ng/mL) Phencyclidine, Urine Negative NEGATIVE [place] Comment on above: (Positive cutoff 25 ng/mL) Propoxyphene, Urine Negative NEGATIVE [place] Comment on above: (Positive cutoff 300 ng/mL) Test Information NOT REPORTED [place] Tricyclic Antidepressants, Urine Negative NEGATIVE [place] Comment on above: (Positive cutoff 300 ng/mL) Drug screen results are to be used for medical purposes only. All positive results are unconfirmed. Testing for employment or legal uses should be sent to a reference laboratory for confirmation. PR ESOPHAGRAMon 05-23-2019 Normal esophagram with particular attention to the cervical esophagus and nasopharynx. [place] EXAMINATION: PR ESOPHAGRAM. HISTORY: R13.10, 43-year-old female with globus sensation. COMPARISON: MRI cervical spine 11/22/2018. FLUOROSCOPY TIME: Fluoro time measures 1.4 minutes and 28 images were obtained. TECHNIQUE: Esophagram. Barium tablet. Rapid sequence fluoroscopic spot films. FINDINGS: There is no nasopharyngeal or epiglottic mass. The esophagus is widely patent throughout with no hiatal hernia. There was no obstruction to the swallowing of a barium tablet. [place] [facility], [facility] Incoming Radiant Results From [employer] - 05/23/2019 1:06 PM EDT EXAMINATION: FL ESOPHAGRAM. HISTORY: R13.10, 43-year-old female with globus sensation. COMPARISON: MRI cervical spine 11/22/2018. FLUOROSCOPY TIME: Fluoro time measures 1.4 minutes and 28 images were obtained. TECHNIQUE: Esophagram. Barium tablet. Rapid sequence fluoroscopic spot films. FINDINGS: There is no nasopharyngeal or epiglottic mass. The esophagus is widely patent throughout with no hiatal hernia. There was no obstruction to the swallowing of a barium tablet. IMPRESSION: Normal esophagram with particular attention to the cervical esophagus and nasopharynx. [place] Microscopic Urinalysison Amorphous, UA NOT REPORTED None [place] Bacteria, UA 2+ Abnormal None [place] Casts UA NOT REPORTED /LPF [place] Crystals, UA NOT REPORTED None /HPF [place] Epithelial Cells UA 2 TO 5 /HPF [place] Interpretation and review of laboratory results Abnormal [place] Mucus, UA 1+ Abnormal None [place] Other Observations UA NOT REPORTED NOT REQ. [place] RBC (U) [#/Vol] NOT REPORTED [place] Renal Epithelial, UA NOT REPORTED 0 /HPF [place] Trichomonas, UA NOT REPORTED None [place] WBC, UA 10 TO 20 0 /HPF [place] Yeast, UA NOT REPORTED None [place] Strep Screen Group A Throato n 05-23-2019 S. pyogenes Ag IA Ql (Unsp spec) Rapid Strep A negative. A negative Rapid Group A Strep Screen result does not rule out the possibility of Group A Streptococci in the specimen. A Group A Strep DNA test is available upon request. [place] Special Requests NOT REPORTED [place] Specimen Description .THROAT [place] Urinalysison 05-23-2019 Bilirubin Urine Negative NEGATIVE [place] Color, UA YELLOW YELLOW [place] Glucose, Ur Negative NEGATIVE [place] Interpretation and review of laboratory results Abnormal [place] Ketones Ql (U) Negative NEGATIVE [place] Leukocyte esterase Test strip Ql (U) 3+ Abnormal NEGATIVE [place] Nitrite, Urine Negative NEGATIVE [place] pH, UA 6.0 [place] Protein (U) [Mass/Vol] TRACE Abnormal NEGATIVE [place] Specific [place], UA 1.025 [place] Turbidity UA CLEAR CLEAR [place] Urinalysis Comments [place] Urine Hgb Negative NEGATIVE [place] Urobilinogen, Urine Normal Normal [place] MRI CERVICAL SPINE WO JULIAN [place] 11-22-2018 Mild discogenic disease without stenosis C6-C7 and C7-T1. [place] TECHNIQUE: Sagittal T1, ESTEPHANIA T2, STIR, axial gradient echo, and T2-weighted images through the cervical spine without contrast performed. COMPARISON: None. HISTORY: Left neck pain extending into the arm, posterior neck pain. FINDINGS: Occiput to T3 evaluated in the sagittal plane. The craniocervical junction, cervicothoracic junction, as well as the cervical vertebral bodies and disc spaces are normal in height and alignment. The marrow signal is normal. Cervical cord is normal in contour and signal. The facets are normal in appearance. No evidence of central spinal canal or foraminal stenosis. C6-C7: Broad-based disc protrusion without stenosis. C7-T1: Small central disc herniation without stenosis. The remainder of the levels are normal in appearance. The vertebral bodies and disc spaces are otherwise normal. There are no paraspinal masses identified. [place], [facility] Incoming Radiant Results From [employer] - 11/22/2018 2:06 PM EDT TECHNIQUE: Sagittal T1, ESTEPHANIA T2, STIR, axial gradient echo, and T2-weighted images through the cervical spine without contrast performed. COMPARISON: None. HISTORY: Left neck pain extending into the arm, posterior neck pain. FINDINGS: Occiput to T3 evaluated in the sagittal plane. The craniocervical junction, cervicothoracic junction, as well as the cervical vertebral bodies and disc spaces are normal in height and alignment. The marrow signal is normal. Cervical cord is normal in contour and signal. The facets are normal in appearance. No evidence of central spinal canal or foraminal stenosis. C6-C7: Broad-based disc protrusion without stenosis. C7-T1: Small central disc herniation without stenosis. The remainder of the levels are normal in appearance. The vertebral bodies and disc spaces are otherwise normal. There are no paraspinal masses identified. IMPRESSION: Mild discogenic disease without stenosis C6-C7 and C7-T1. [place], [place] CYTOLOGYon 06-13-2018 CYTOLOGY Specimen originated from [facility] Specimen #: [id number] Submitting Physician: Estefani Sanchez M.D. SPECIMEN SUBMITTED A: THYROID, RIGHT LOBE, FINE NEEDLE ASPIRATE (THINPREP, SMEARS & CELL BLOCK) B: THYROID, LEFT LOBE, FINE NEEDLE ASPIRATE (THINPREP & SMEARS) FINAL DIAGNOSIS A. THYROID, RIGHT LOBE, FINE NEEDLE ASPIRATE (THINPREP, SMEARS & CELL BLOCK) Benign. Specimen is consistent with a benign follicular nodule. B. THYROID, LEFT LOBE, FINE NEEDLE ASPIRATE (THINPREP & SMEARS) Benign. Specimen is consistent with a benign follicular nodule. Emelina Huizar M.D. (Electronic Signature) CLINICAL DATA right and left thyroid nodule ADEQUACY INTERPRETATION Part A) Fine Needle Aspiration 3 passes. Pass 1, 2; Not adequate. Pass 3; Adequate Reported to Dr. Sanchez by Henry Reyes Each letter in the above intra-procedural assessment refers to a unique site. The specific site is indicated in the final diagnosis portion of the report. Each number in this assessment references a discrete evaluation episode. Intra-procedural assessment performed at [facility], [address] [place] [address] Part B) Fine Needle Aspiration 3 passes. Pass 1; No adequacy given. Pass 2: adequate. Pass 3; No adequacy given Reported to Dr. Sanchez by Henry Reyes Each letter in the above intra-procedural assessment refers to a unique site. The specific site is indicated in the final diagnosis portion of the report. Each number in this assessment references a discrete evaluation episode. Intra-procedural assessment performed at [facility], [address] [place] [address] GROSS DESCRIPTION Part A) 30 ml opaque red CytoLyt. 1 ThinPrep, 6 smears (3DQ-3PAP), cell block Part B) 30 ml clear pink CytoLYt with scant particles. 1 ThinPrep, 6 smears (3DQ-3PAP), cell block STAINS A: THYROID, RIGHT LOBE, FINE NEEDLE ASPIRATE (THINPREP, SMEARS & CELL BLOCK) SMEARS RECEIVED x 6, THIN PREP Non-Breakdown Man, CELL BLOCK, H&E, Initial B: THYROID, LEFT LOBE, FINE NEEDLE ASPIRATE (THINPREP & SMEARS) SMEARS RECEIVED x 6, THIN PREP Non-Breakdown Man Date of Report: 06/14/2018 Date of Procedure: 06/13/2018 Date of Receipt: 06/14/2018 Submitted by: Estefani Sanchez M.D. Additional Physician(s): Addi Julio M.D. Location: [facility] Diagnostic interpretation performed at [facility], [address] [place] [address]. [place] Number: [id number] Normal [facility] US FINE NEEDLE ASPIRATIONon 06-13-2018 US FINE NEEDLE ASPIRATION * * *Final Report* * * DATE OF EXAM: Jun 13 2018 12:18PM [facility] 1249 - US FINE NEEDLE ASPIRATION / PROCEDURE REASON: thyroid nodule * * * * Physician Interpretation * * * * CLINICAL: Multinodular goiter Pre-procedure Sign-in: Safety Checklist Performed: Yes. The team confirmed the correct patient, correct site, site marking, correct procedure, and correct position. Timeout Time: Immediately prior to the procedure Sign-out: Communication performed: Yes The procedure, its risks - including those of procedural sedation and x-ray fluoroscopic use -, benefits, alternatives and personnel to be involved with discussed with the patient. The patient's questions were answered and informed consent was obtained. The patient indicated that they wished to proceed. TECHNIQUE: The subcutaneous tissues of the right and left side of the neck were prepped in a normal sterile fashion. A small area of skin was anesthetized with 1 percent lidocaine. A 25-gauge needle was inserted into a hypoechoic mass in the right and left lobe of the thyroid gland. 4 passes were made through both the right and left lobe thyroid nodules and the aspirate was placed on slides. The remaining aspirate was placed in sterile saline. A preliminary interpretation by the vp software engineering demonstrated adequate amount of cellular material for diagnosis for both nodules. A soft copy digital image was saved for the purposes of documentation of ultrasound guidance. IMPRESSION: STATUS POST SUCCESSFUL ULTRASOUND-GUIDED THYROID FINE-NEEDLE ASPIRATION OF A RIGHT AND LEFT LOBE THYROID NODULE. Electronic Engineering Draftsperson: EDITH Transcribe Date/Time: Jun 13 2018 12:31P Dictated by : ESTEFANI SANCHEZ MD This examination was interpreted and the report reviewed and electronically signed by: ESTEFANI SANCHEZ MD on Jun 13 2018 12:32PM EST [id number] [facility] US FINE NEEDLE ASPIRATION * * *Final Report* * * DATE OF [facility]AM: Jun 13 2018 12:18PM [facility]INE NEEDLE ASPIRATION / PROCEDURE REASON: thyroid nodule * * * * Physician Interpretation * * * * CLINICAL: Multinodular goiter Pre-procedure Sign-in: Safety Checklist Performed: Yes. The team confirmed the correct patient, correct site, site marking, correct procedure, and correct position. Timeout Time: Immediately prior to the procedure Sign-out: Communication performed: Yes The procedure, its risks - including those of procedural sedation and x-ray fluoroscopic use -, benefits, alternatives and personnel to be involved with discussed with the patient. The patient's questions were answered and informed consent was obtained. The patient indicated that they wished to proceed. TECHNIQUE: The subcutaneous tissues of the right and left side of the neck were prepped in a normal sterile fashion. A small area of skin was anesthetized with 1 percent lidocaine. A 25-gauge needle was inserted into a hypoechoic mass in the right and left lobe of the thyroid gland. 4 passes were made through both the right and left lobe thyroid nodules and the aspirate was placed on slides. The remaining aspirate was placed in sterile saline. A preliminary interpretation by the vp software engineering demonstrated adequate amount of cellular material for diagnosis for both nodules. A soft copy digital image was saved for the purposes of documentation of ultrasound guidance. IMPRESSION: STATUS POST SUCCESSFUL ULTRASOUND-GUIDED THYROID FINE-NEEDLE ASPIRATION OF A RIGHT AND LEFT LOBE THYROID NODULE. Electronic Engineering Draftsperson: EDITH Transcribe Date/Time: Jun 13 2018 12:31P Dictated by : ESTEFANI SANCHEZ MD This examination was interpreted and the report reviewed and electronically signed by: ESTEFANI SANCHEZ MD on Jun 13 2018 12:32PM EST [id number] [facility] US GUIDED NEEDLEon 9 US GUIDED NEEDLE * * *Final Report* * * DATE OF EXAM: Jun 13 2018 12:18PM [facility] 1030 - US GUIDED NEEDLE / PROCEDURE REASON: thyroid nodule * * * * Physician Interpretation * * * * CLINICAL: Multinodular goiter Pre-procedure Sign-in: Safety Checklist Performed: Yes. The team confirmed the correct patient, correct site, site marking, correct procedure, and correct position. Timeout Time: Immediately prior to the procedure Sign-out: Communication performed: Yes The procedure, its risks - including those of procedural sedation and x-ray fluoroscopic use -, benefits, alternatives and personnel to be involved with discussed with the patient. The patient's questions were answered and informed consent was obtained. The patient indicated that they wished to proceed. TECHNIQUE: The subcutaneous tissues of the right and left side of the neck were prepped in a normal sterile fashion. A small area of skin was anesthetized with 1 percent lidocaine. A 25-gauge needle was inserted into a hypoechoic mass in the right and left lobe of the thyroid gland. 4 passes were made through both the right and left lobe thyroid nodules and the aspirate was placed on slides. The remaining aspirate was placed in sterile saline. A preliminary interpretation by the vp software engineering demonstrated adequate amount of cellular material for diagnosis for both nodules. A soft copy digital image was saved for the purposes of documentation of ultrasound guidance. IMPRESSION: STATUS POST SUCCESSFUL ULTRASOUND-GUIDED THYROID FINE-NEEDLE ASPIRATION OF A RIGHT AND LEFT LOBE THYROID NODULE. Electronic Engineering Draftsperson: EDITH Transcribe Date/Time: Jun 13 2018 12:31P Dictated by : ESTEFANI SANCHEZ MD This examination was interpreted and the report reviewed and electronically signed by: ESTEFANI SANCHEZ MD on Jun 13 2018 12:32PM EST [id number] [facility] US GUIDED NEEDLE * * *Final Report* * * DATE OF EXAM: Jun 13 2018 12:18PM [facility] 1030 - US GUIDED NEEDLE / PROCEDURE REASON: thyroid nodule * * * * Physician Interpretation * * * * CLINICAL: Multinodular goiter Pre-procedure Sign-in: Safety Checklist Performed: Yes. The team confirmed the correct patient, correct site, site marking, correct procedure, and correct position. Timeout Time: Immediately prior to the procedure Sign-out: Communication performed: Yes The procedure, its risks - including those of procedural sedation and x-ray fluoroscopic use -, benefits, alternatives and personnel to be involved with discussed with the patient. The patient's questions were answered and informed consent was obtained. The patient indicated that they wished to proceed. TECHNIQUE: The subcutaneous tissues of the right and left side of the neck were prepped in a normal sterile fashion. A small area of skin was anesthetized with 1 percent lidocaine. A 25-gauge needle was inserted into a hypoechoic mass in the right and left lobe of the thyroid gland. 4 passes were made through both the right and left lobe thyroid nodules and the aspirate was placed on slides. The remaining aspirate was placed in sterile saline. A preliminary interpretation by the vp software engineering demonstrated adequate amount of cellular material for diagnosis for both nodules. A soft copy digital image was saved for the purposes of documentation of ultrasound guidance. IMPRESSION: STATUS POST SUCCESSFUL ULTRASOUND-GUIDED THYROID FINE-NEEDLE ASPIRATION OF A RIGHT AND LEFT LOBE THYROID NODULE. Electronic Engineering Draftsperson: EDITH Transcribe Date/Time: Jun 13 2018 12:31P Dictated by : ESTEFANI SANCHEZ MD This examination was interpreted and the report reviewed and electronically signed by: ESTEFANI SANCHEZ MD on Jun 13 2018 12:32PM EST [id number] [facility] HOSPon 06-05-2018 HOSP Patient:Kamilla Sosa MRN: Height:5' 8 [verified by 2 caregivers[(1.727 m) Weight:No patient weight recorded within the last 30 days. Outpatient Medications as of 06/13/18: acyclovir (ZOVIRAX) 800 mg tablet busPIRone (BUSPAR) 15 mg tablet gabapentin (NEURONTIN) 600 mg tablet TRINTELLIX 20 mg tab Phentermine HCl 37.5 mg tablet traZODone (DESYREL) 100 mg tablet ARIPiprazole (ABILIFY) 5 mg tablet DULoxetine (CYMBALTA) 20 mg capsule oxyCODONE-acetaminop hen (PERCOCET 10) 10-325 mg tablet topiramate (TOPAMAX) 50 mg tablet naproxen (NAPROSYN) 500 mg tablet Admission/Clinic Administered Medications as of 06/13/18: Patient has no admission medications. Problem List: No problem list on file for this patient. Allergies: Cymbalta [Duloxetine] Risperidone Date Verified: 06/13/18 Lab Values No results within the last 30 days for the following basenames: K,HCT Progress Notes ([facility]): Srini Pleitez Ma 05/24/2018 2:42 PM Signed Called and left message for [facility] biopsy department to schedule patient for ultrasound guided thyroid biopsy. Orders are in system. Patient had thyroid US done outside clinic and will drop off CD to radiology department prior to scheduling. Progress Notes ([facility]): Addi Julio MD 05/24/2018 3:19 PM Signed Progress Note: Otolaryngology/Head and Neck Surgery PRIMARY CARE PHYSICIAN: Rin Mcgowan NP Patient presents with: Throat Problem: NEW....c/o thyroid nodules, US thyroid, swelling neck area, fatigue, hair loss, throat sore, current cold, family history thyroid and throat cancer. Denies difficulty swallowing, hoarseness/raspy voice, ear or nasal pain today. SUBJECTIVE Ms. Sosa is a 42 year old female who presents for thyroid nodules, swelling in the neck area, fatigue, hair loss, throat sore, and current cold. She had US thyroid completed on 05/22/18 showing left and right thyroid nodules. FHx of thyroid cancer and throat cancer. 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 Disp: Rfl: busPIRone (BUSPAR) 15 mg tablet Take 15 mg by mouth three times daily. Disp: Rfl: gabapentin (NEURONTIN) 600 mg tablet Take 600 mg by mouth once daily. Disp: Rfl: 2 TRINTELLIX 20 mg tab Disp: Rfl: Phentermine HCl 37.5 mg tablet Take 37.5 mg by mouth. Disp: Rfl: traZODone (DESYREL) 100 mg tablet Take 100 mg by mouth daily at bedtime. Disp: Rfl: ARIPiprazole (ABILIFY) 5 mg tablet Take 5 mg by mouth once daily. Disp: Rfl: DULoxetine (CYMBALTA) 20 mg capsule Take 20 mg by mouth once daily. Disp: Rfl: oxyCODONE-acetaminop hen (PERCOCET 10) 10-325 mg tablet Take 1 tablet by mouth every 8 hours as needed for Pain. Disp: Rfl: topiramate (TOPAMAX) 50 mg tablet Take 100 mg by mouth twice daily. Disp: Rfl: naproxen (NAPROSYN) 500 mg tablet Take 500 mg by mouth twice daily with meals. Disp: Rfl: No current facility-administere d medications for this visit. CURRENT ALLERGIES: Allergies As of Date: 05/24/2018 Allergen Noted Reaction CYMBALTA [DULOXETINE] 05/24/2018 Mental Status Change RISPERIDONE 05/24/2018 Hives Fully Assessed 05/24/2018 REVIEW OF SYSTEMS: GENERAL: Positive for fatigue. NECK: Complains neck swelling RESPIRATORY: Negative for cough, hemoptysis, wheezing or shortness of breath CARDIOVASCULAR: Negative for chest pain, leg swelling or palpitations MUSCULOSKELETAL: Positive for arthritis and fibromyalgia. GI: Negative for reflux, abdominal pain, constipation, diarrhea HEMATOLOGY/LYMPHOLOG Y: Negative for prolonged bleeding, bruising easily or swollen nodes ENDOCRINE: Positive for multiple thyroids. Negative for cold or heat intolerance, polyuria, polydipsia and goiter NEURO/PSYCH: No history of headaches, syncope, paralysis, seizures or tremors OBJECTIVE PHYSICAL EXAM: There were no vitals taken for this visit. GENERAL: Alert, no distress, cooperative EARS: External ears normal, canals clear, normal TMs NOSE: Nares normal. Septum midline., no congestion OROPHARYNX: Lips, mucosa, and tongue normal. Teeth and gums normal. Oropharynx normal. NECK: No jugulovenous distention, No carotid bruits, Carotid pulse normal contour, Supple Fullness left thyroid lobe DATA: Diagnostic tests reviewed for today's visit, films/specimens were personally reviewed by me: US thyroid 05/22/18 - 1.3 cm nodule projecting from the lower pole of the left thyroid lobe; mixed cystic nodule measuring 1.6 cm in size in the midpole of the right thyroid lobe. Encounter Diagnosis ICD-10-CM 1. Multiple thyroid nodules E04.2 IMAGING GUIDED BIOPSY THYROID THYROID LEFT FINE NEEDLE ASPIRATION THYROID RIGHT FINE NEEDLE ASPIRATION Ordered imaging guided biopsy thyroid, left and right FNA Discussed with the patient her results of US thyroid and ACR criteria/guidelines I will plan to get a copy of her lab work Follow up after biopsy. Addi Julio MD (Results of consultation to be transmitted by electronic records to [facility] Providers or via fax or letter to other providers) Scribe Attestation: By signing my name below, IEmelina, attest that this documentation has been prepared under the direction and in the presence of Addi Julio MD. Electronically Signed:oscar Gupta, May 24, 2018 10:37 AM Provider Attestation: Addi Suazo MD, personally performed the services described in this documentation. All medical record entries made by the scribe were at my direction and in my presence. I have reviewed the chart and discharge instructions (if applicable) and agree that the record reflects my personal performance and is accurate and complete. Addi Julio MD May 24, 2018 2:18 PM Previous Version Normal [facility] Coding Summary.on 05-25-2018 Coding Summary. 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 However, the narrative phrase printed from the coding software may appear abbreviated, or result in slightly different terminology. Coded By: Rin Viramontes Date Saved: 05/25/2018 01:59 pm Normal [facility] Vital Signs Date Time Vital Sign Value Performing Clinician Facility 05-20-2024 08:16-0400 Body height 175.3 cm [facility]aya [facility]arnacion [facility] 05-20-2024 08:16-0400 Body mass index (BMI) [Ratio] 28.6 kg/m2 Laya Encarnacion MD [facility] 05-20-2024 08:16-0400 Body temperature 97.39 [degF] Laya Encarnacion MD [facility] 05-20-2024 08:16-0400 Body weight 87.86 kg Laya [facility]arnacion [facility] 05-20-2024 08:16-0400 Diastolic blood pressure 84 mm[Hg] Laya Encarnacion MD [facility] 05-20-2024 08:16-0400 Heart rate 80 /min [facility]acion [facility] 05-20-2024 08:16-0400 Respiratory rate 16 /min Laya Encarnacion [facility] 05-20-2024 08:16-0400 SaO2% (BldA) [Mass fraction] 97 % Laya Encarnacion MD Work Phone: [facility] [employer] 05-20-2024 08:16-0400 Systolic blood pressure 117 mm[Hg] Laya Encarnacion MD Work Phone: [facility] 05-06-2024 09:35-0500 Body height 175.3 cm Esdras Patiño MD Work Phone: [facility] 05-06-2024 09:35-0500 Body mass index (BMI) [Ratio] 29.53 kg/m2 Esdras Patiño MD Work Phone: [facility] 05-06-2024 09:35-0500 Body weight 90.72 kg Esdras Patiño MD Work Phone: [facility] 05-06-2024 09:35-0500 Diastolic blood pressure 86 mm[Hg] Esdras Patiño MD Work Phone: [facility] 05-06-2024 09:35-0500 Heart rate 84 /min Esdras Patiño MD Work Phone: [facility] 05-06-2024 09:35-0500 Systolic blood pressure 132 mm[Hg] Esdras Patiño MD Work Phone: [facility] 05-01-2024 11:18-0500 Body height 175.3 cm 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: [facility] 05-01-2024 11:18-0500 Body mass index (BMI) [Ratio] 29.53 kg/m2 Kika Jordanr [employer] Work Phone: [facility] 05-01-2024 11:18-0500 Body weight 90.72 kg Kika Angimor [employer] Work Phone: [facility] 05-01-2024 11:18-0500 Diastolic blood pressure 82 mm[Hg] Kika Whitleymor [employer] Work Phone: [facility] 05-01-2024 11:18-0500 Heart rate 94 /min 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: [facility] 05-01-2024 11:18-0500 SaO2% (BldA) [Mass fraction] 98 % 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: [facility] 05-01-2024 11:18-0500 Systolic blood pressure 128 mm[Hg] Kika Yoli [employer] Work Phone: [facility] 04-05-2024 10:07-0500 Body height 175.3 cm Esdras Patiño MD Work Phone: [facility] 04-05-2024 10:07-0500 Body mass index (BMI) [Ratio] 29.09 kg/m2 Esdras Patiño MD Work Phone: [facility] 04-05-2024 10:07-0500 Body weight 89.36 kg Esdras Patiño MD Work Phone: [facility] 04-05-2024 10:07-0500 Diastolic blood pressure 86 mm[Hg] Esdras Patiño MD Work Phone: [facility] 04-05-2024 10:07-0500 Heart rate 98 /min Esdras Patiño MD Work Phone: [facility] 04-05-2024 10:07-0500 Systolic blood pressure 121 mm[Hg] Esdras Patiño MD Work Phone: [facility] 03-07-2024 09:18-0500 Body temperature 97.9 [degF] Austyn Stauffer MD Work Phone: [employer] 03-07-2024 09:18-0500 Diastolic blood pressure 90 mm[Hg] Austyn Stauffer MD Work Phone: [employer] 03-07-2024 09:18-0500 Heart rate 68 /min Austyn Stauffer MD Work Phone: [employer] 03-07-2024 09:18-0500 Respiratory rate 18 /min Austyn Stauffer MD Work Phone: [employer] 03-07-2024 09:18-0500 SaO2% (BldA) [Mass fraction] 100 % Austyn Stauffer MD Work Phone: [employer] 03-07-2024 09:18-0500 Systolic blood pressure 147 mm[Hg] Asutyn Stauffer MD Work Phone: [facility] 03-07-2024 09:18-0500 Body height 175.3 cm Austyn Stauffer MD Work Phone: [facility] 03-07-2024 09:18-0500 Body mass index (BMI) [Ratio] 29.98 kg/m2 Austyn Stauffer MD Work Phone: [facility] 03-07-2024 09:18-0500 Body weight 92.08 kg Austyn Stauffer MD Work Phone: [facility] 02-13-2024 09:04-0500 Body height 175.3 cm 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: [facility] 02-13-2024 09:04-0500 Body mass index (BMI) [Ratio] 29.09 kg/m2 Kika Angimor [employer] Work Phone: [facility] 02-13-2024 09:04-0500 Body weight 89.36 kg Kika Angimor [employer] Work Phone: [facility] 02-13-2024 09:04-0500 Diastolic blood pressure 80 mm[Hg] Kika Angimor [employer] Work Phone: [facility] 02-13-2024 09:04-0500 Heart rate 93 /min Kika Angimor [employer] Work Phone: [facility] 02-13-2024 09:04-0500 SaO2% (BldA) [Mass fraction] 98 % Kika Angimor [employer] Work Phone: [facility] 02-13-2024 09:04-0500 Systolic blood pressure 122 mm[Hg] Kika Angimor [employer] Work Phone: [facility] 01-04-2024 12:51-0400 Diastolic blood pressure 82 mm[Hg] Orlin Duy DO Work Phone: [facility] 01-04-2024 12:51-0400 Heart rate 83 /min Orlin Duy DO Work Phone: [facility] 01-04-2024 12:51-0400 SaO2% (BldA) [Mass fraction] 98 % Orlin Duy DO Work Phone: [facility] 01-04-2024 12:51-0400 Systolic blood pressure 128 mm[Hg] Orlin Duy DO Work Phone: [facility] 12-21-2023 10:05-0400 Body height 175.3 cm Kika Angimor [employer] Work Phone: [facility] 12-21-2023 10:05-0400 Body mass index (BMI) [Ratio] 28.35 kg/m2 Kika Angimor [employer] Work Phone: [facility] 12-21-2023 10:05-0400 Body weight 87.09 kg Kika Angimor [employer] Work Phone: [facility] 12-21-2023 10:05-0400 Diastolic blood pressure 84 mm[Hg] Kika Angimor [employer] Work Phone: [facility] 12-21-2023 10:05-0400 Heart rate 93 /min Kika Angimor [employer] Work Phone: [facility] [facility] 12-21-2023 10:05-0400 SaO2% (BldA) [Mass fraction] 98 % Kika Angimor [employer] Work Phone: [facility] 12-21-2023 10:05-0400 Systolic blood pressure 136 mm[Hg] Kika Angimor [employer] Work Phone: [facility] 11-08-2023 15:05-0400 Diastolic blood pressure 88 mm[Hg] Lyle Sarmini [facility] 11-08-2023 15:05-0400 Heart rate 70 /min Lyle Sarmini [facility] 11-08-2023 15:05-0400 Respiratory rate 12 /min Lyle Sarmini [facility] 11-08-2023 15:05-0400 SaO2% (BldA) [Mass fraction] 99 % Lyle Sarmini [facility] 11-08-2023 15:05-0400 Systolic blood pressure 123 mm[Hg] Lyle Sarmini [facility] 11-08-2023 14:50-0400 Diastolic blood pressure 75 mm[Hg] Lyle Sarmini [facility] 11-08-2023 14:50-0400 Heart rate 79 /min Lyle Sarmini [facility] 11-08-2023 14:50-0400 Respiratory rate 21 /min Lyle Sarmini [facility] 11-08-2023 14:50-0400 SaO2% (BldA) [Mass fraction] 96 % Lyle Sarmini [facility] 11-08-2023 14:50-0400 Systolic blood pressure 116 mm[Hg] Lyle Sarmini [facility] 11-08-2023 14:45-0400 Diastolic blood pressure 76 mm[Hg] Lyle Sarmini [facility] 11-08-2023 14:45-0400 Heart rate 85 /min Lyle Sarmini [facility] 11-08-2023 14:45-0400 Respiratory rate 17 /min Lyle Sarmini [facility] 11-08-2023 14:45-0400 SaO2% (BldA) [Mass fraction] 98 % Lyle Sarmini [facility] 11-08-2023 14:45-0400 Systolic blood pressure 108 mm[Hg] Lyle Sarmini [facility] 11-08-2023 14:36-0400 Body temperature 97.34 [degF] Lyle Sarmini [facility] 11-08-2023 14:30-0400 Respiratory rate 20 /min Lyle Sarmini [facility] 11-08-2023 14:25-0400 Respiratory rate 20 /min Lyle Sarmini [facility] 11-08-2023 14:20-0400 Respiratory rate 20 /min Lyle Sarmini [facility] 11-08-2023 13:18-0400 Blood Pressure Location Lyle Sarmini [facility] 11-08-2023 13:18-0400 Body temperature 98.06 [degF] Lyle Sarmini [facility] 09-27-2023 10:43-0400 Blood Pressure Location Lyle Sarmini [facility] 09-27-2023 10:43-0400 Diastolic blood pressure 79 mm[Hg] Lyle Sarmini [facility] 09-27-2023 10:43-0400 Heart rate 71 /min Lyle Sarmini [facility] 09-27-2023 10:43-0400 Systolic blood pressure 113 mm[Hg] Lyle Sarmini [facility] 07-22-2023 09:23-0400 Body height 175.3 cm Gibson Stinson MD Work Phone: [email or web address] 07-22-2023 09:23-0400 Body mass index (BMI) [Ratio] 29.53 kg/m2 Gibson Stinson MD Work Phone: [facility] 07-22-2023 09:23-0400 Body temperature 98.01 [degF] Gibson Stinson MD Work Phone: [facility] 07-22-2023 09:23-0400 Body weight 90.72 kg Gibson Stinson MD Work Phone: [email or web address] 07-22-2023 09:23-0400 Diastolic blood pressure 83 mm[Hg] Gibson Stinson MD Work Phone: [email or web address] 07-22-2023 09:23-0400 Heart rate 84 /min Gibson Stinson MD Work Phone: [email or web address] 07-22-2023 09:23-0400 Respiratory rate 16 /min Gibson Stinson MD Work Phone: [email or web address] 07-22-2023 09:23-0400 SaO2% (BldA) [Mass fraction] 98 % Gibson Stinson MD Work Phone: [email or web address] 07-22-2023 09:23-0400 Systolic blood pressure 113 mm[Hg] Gibson Stinson MD Work Phone: [email or web address] 07-03-2023 12:06-0400 SaO2% (BldA) [Mass fraction] 97 % Wandy Ghotra MD Work Phone: [email or web address] 07-03-2023 11:56-0400 Diastolic blood pressure 82 mm[Hg] Wandy Ghotra MD Work Phone: [email or web address] 07-03-2023 11:56-0400 Systolic blood pressure 117 mm[Hg] Wandy Ghotra MD Work Phone: [email or web address] 07-03-2023 11:21-0400 Body height 175.3 cm Wandy Ghotra MD Work Phone: [facility] 07-03-2023 11:21-0400 Body mass index (BMI) [Ratio] 29.24 kg/m2 Wandy Ghotra MD Work Phone: [facility] 07-03-2023 11:21-0400 Body temperature 98.2 [degF] Wandy Ghotra MD Work Phone: [facility] 07-03-2023 11:21-0400 Body weight 89.81 kg Wandy Ghotra MD Work Phone: [facility] 07-03-2023 11:21-0400 Heart rate 85 /min Wandy Ghotra MD Work Phone: [facility] 07-03-2023 11:21-0400 Respiratory rate 18 /min Wandy Ghotra MD Work Phone: [facility] 05-06-2023 10:14-0500 Body height 175.3 cm Gibson Stinson MD Work Phone: [facility] 05-06-2023 10:14-0500 Body mass index (BMI) [Ratio] 29.08 kg/m2 Gibson Stinson MD Work Phone: [facility] 05-06-2023 10:14-0500 Body weight 89.31 kg Gibson Stinson MD Work Phone: [facility] 05-06-2023 10:00-0500 Body temperature 99.1 [degF] Gibson Stinson MD Work Phone: [facility] 05-06-2023 10:00-0500 Diastolic blood pressure 81 mm[Hg] Gibson Stinson MD Work Phone: [email or web address] 05-06-2023 10:00-0500 Heart rate 91 /min Gibson Stinson MD Work Phone: [email or web address] 05-06-2023 10:00-0500 Respiratory rate 18 /min Gibson Stinson MD Work Phone: [facility] 05-06-2023 10:00-0500 SaO2% (BldA) [Mass fraction] 98 % Gibson Stinson MD Work Phone: [email or web address] 05-06-2023 10:00-0500 Systolic blood pressure 117 mm[Hg] Gibson Stinson MD Work Phone: [email or web address] 12-28-2022 10:00-0400 Body height 172.72 cm Patricia Missler Other [facility] Other 12-28-2022 10:00-0400 Body mass index (BMI) [Ratio] 28.05 kg/m2 Patricia Missler Other [facility] Other 12-28-2022 10:00-0400 Body weight 83.69 kg Patricia Missler Other [facility] Other 12-28-2022 10:00-0400 Diastolic blood pressure 74 mm[Hg] Patricia Missler Other [facility] Other 12-28-2022 10:00-0400 Respiratory rate 16 /min Patricia Missler Other [facility] Other 12-28-2022 10:00-0400 SaO2% (BldA) [Mass fraction] 100 % Patricia Missler Other [facility] Other 12-28-2022 10:00-0400 Systolic blood pressure 111 mm[Hg] Patricia Missler Other [facility] Other 09-12-2022 08:30-0400 Body height 172.72 cm Patricia Missler Other [facility] Other 09-12-2022 08:30-0400 Body mass index (BMI) [Ratio] 27.72 kg/m2 Patricia Missler Other [facility] Other 09-12-2022 08:30-0400 Body weight 82.69 kg Patricia Missler Other [facility] Other 09-12-2022 08:30-0400 Diastolic blood pressure 80 mm[Hg] Patricia Missler Other [facility] Other 09-12-2022 08:30-0400 Respiratory rate 18 /min Patricia Missler Other [facility] Other 09-12-2022 08:30-0400 SaO2% (BldA) [Mass fraction] 99 % Patricia Missler Other [facility] Other 09-12-2022 08:30-0400 Systolic blood pressure 119 mm[Hg] Patricia Missler Other [facility] Other 06-26-2022 11:56-0400 Body height 175.3 cm Wandy Ghotra MD Work Phone: [email or web address] 06-26-2022 11:56-0400 Body mass index (BMI) [Ratio] 27.1 kg/m2 Wandy Ghotra MD Work Phone: [email or web address] 06-26-2022 11:56-0400 Body temperature 98.4 [degF] Wandy Ghotra MD Work Phone: [email or web address] 06-26-2022 11:56-0400 Body weight 83.23 kg Wandy Ghotra MD Work Phone: [facility] 06-26-2022 11:56-0400 Diastolic blood pressure 86 mm[Hg] Wandy Ghotra MD Work Phone: [facility] 06-26-2022 11:56-0400 Heart rate 65 /min Wandy Ghotra MD Work Phone: [facility] 06-26-2022 11:56-0400 Respiratory rate 16 /min Wandy Ghotra MD Work Phone: [facility] 06-26-2022 11:56-0400 SaO2% (BldA) [Mass fraction] 100 % Wandy Ghotra MD Work Phone: [facility] 06-26-2022 11:56-0400 Systolic blood pressure 121 mm[Hg] Wandy Ghotra MD Work Phone: [facility] 05-25-2022 11:30-0400 Body height 172.72 cm Patricia Missler Other [facility] Other 05-25-2022 11:30-0400 Body mass index (BMI) [Ratio] 28.61 kg/m2 Patricia Missler Other [facility] Other 05-25-2022 11:30-0400 Body weight 85.37 kg Patricia Missler Other [facility] Other 05-25-2022 11:30-0400 Diastolic blood pressure 72 mm[Hg] Patricia Missler Other [facility] Other 05-25-2022 11:30-0400 Respiratory rate 18 /min Patricia Missler Other [facility] Other 05-25-2022 11:30-0400 SaO2% (BldA) [Mass fraction] 98 % Patricia Missler Other [facility] Other 05-25-2022 11:30-0400 Systolic blood pressure 107 mm[Hg] Patricia Missler Other [facility] Other 04-07-2022 15:00-0500 Body height 172.72 cm Sammie Fitt Other [facility] Other 03-09-2022 14:45-0500 Body height 172.72 cm Patricia Missler Other [facility] Other 03-09-2022 14:45-0500 Body mass index (BMI) [Ratio] 29.1 kg/m2 Patricia Missler Other [facility] Other 03-09-2022 14:45-0500 Body weight 86.82 kg Patricia Missler Other [facility] Other 03-09-2022 14:45-0500 Diastolic blood pressure 83 mm[Hg] Patricia Missler Other [facility] Other 03-09-2022 14:45-0500 Respiratory rate 18 /min Patricia Missler Other [facility] Other 03-09-2022 14:45-0500 SaO2% (BldA) [Mass fraction] 98 % Patricia Missler Other [facility] Other 03-09-2022 14:45-0500 Systolic blood pressure 120 mm[Hg] Patricia Missler Other [facility] Other 01-24-2022 12:30-0500 Body height 172.72 cm Patricia Missler Other [facility] Other 01-24-2022 12:30-0500 Body mass index (BMI) [Ratio] 31.3 kg/m2 Patricia Missler Other [facility] Other 01-24-2022 12:30-0500 Body weight 93.4 kg Patricia Missler Other [facility] Other 01-24-2022 12:30-0500 Diastolic blood pressure 84 mm[Hg] Patricia Missler Other [facility] Other 01-24-2022 12:30-0500 Respiratory rate 18 /min Patricia Missler Other [facility] Other 01-24-2022 12:30-0500 SaO2% (BldA) [Mass fraction] 98 % Patricia Missler Other [facility] Other 01-24-2022 12:30-0500 Systolic blood pressure 123 mm[Hg] Patricia Missler Other [facility] Other 12-20-2021 09:30-0400 Body height 172.72 cm Patricia Missler Other [facility] Other 12-20-2021 09:30-0400 Body mass index (BMI) [Ratio] 32.32 kg/m2 Patricia Missler Other [facility] Other 12-20-2021 09:30-0400 Body weight 96.44 kg Patricia Missler Other [facility] Other 12-20-2021 09:30-0400 Diastolic blood pressure 86 mm[Hg] Patricia Missler Other [facility] Other 12-20-2021 09:30-0400 Respiratory rate 18 /min Patricia Missler Other [facility] Other 12-20-2021 09:30-0400 SaO2% (BldA) [Mass fraction] 99 % Patricia Missler Other [facility] Other 12-20-2021 09:30-0400 Systolic blood pressure 123 mm[Hg] Patricia Missler Other [facility] Other 11-14-2021 01:14-0400 [facility] 11-14-2021 01:14-0400 Promise to Return [facility] 11-14-2021 01:13-0400 Diastolic blood pressure 68 mm[Hg] [facility] 11-14-2021 01:13-0400 Heart rate 74 /min [facility] 11-14-2021 01:13-0400 Mean blood pressure 87 mm[Hg] [facility] 11-14-2021 01:13-0400 Respiratory rate 16 /min [facility] 11-14-2021 01:13-0400 SaO2% (BldA) [Mass fraction] 98 % [facility] 11-14-2021 01:13-0400 Systolic blood pressure 124 mm[Hg] [facility] 11-14-2021 00:51-0400 Diastolic blood pressure 87 mm[Hg] [facility] 11-14-2021 00:51-0400 Heart rate 97 /min [facility] 11-14-2021 00:51-0400 Mean blood pressure 100 mm[Hg] [facility] 11-14-2021 00:51-0400 Respiratory rate 16 /min [facility] 11-14-2021 00:51-0400 SaO2% (BldA) [Mass fraction] 98 % [facility] 11-14-2021 00:51-0400 Systolic blood pressure 125 mm[Hg] [facility] 11-14-2021 00:05-0400 [facility] 11-14-2021 00:05-0400 [facility] 11-14-2021 00:04-0400 Diastolic blood pressure 74 mm[Hg] [facility] 11-14-2021 00:04-0400 Heart rate 82 /min [facility] 11-14-2021 00:04-0400 Mean blood pressure 89 mm[Hg] [facility] 11-14-2021 00:04-0400 Respiratory rate 16 /min [facility] 11-14-2021 00:04-0400 SaO2% (BldA) [Mass fraction] 99 % [facility] 11-14-2021 00:04-0400 Systolic blood pressure 118 mm[Hg] [facility] 11-13-2021 22:55-0400 [facility] 11-13-2021 22:55-0400 [facility] 11-13-2021 20:45-0400 Body temperature 97.7 [degF] [facility] 07-27-2021 18:06-0400 Body temperature 98.24 [degF] [facility] 07-27-2021 18:06-0400 Diastolic blood pressure 87 mm[Hg] [facility] 07-27-2021 18:06-0400 Heart rate 90 /min [facility] 07-27-2021 18:06-0400 Respiratory rate 18 /min [facility] 07-27-2021 18:06-0400 SaO2% (BldA) [Mass fraction] 98 % [facility] 07-27-2021 18:06-0400 Systolic blood pressure 144 mm[Hg] [facility] 01-21-2020 11:22-0500 BMI (Body Mass Index) 35.64 kg/m2 [facility] [place] 01-21-2020 11:22-0500 Body Temperature 98.4 [degF] [facility] [place] 01-21-2020 11:22-0500 Body weight 97.[address] [facility] , [place] 01-21-2020 11:22-0500 BP Diastolic 77 mm[Hg] [facility] [place] 01-21-2020 11:22-0500 BP Systolic 151 mm[Hg] [facility] [place] 01-21-2020 11:22-0500 Pulse (Heart Rate) 88 /min [facility] [place] 01-21-2020 11:22-0500 Pulse Oximetry 96 % [facility] [place] 01-21-2020 11:22-0500 Respiratory Rate 18 /min [facility] [place] 08-18-2019 19:08-0400 BMI (Body Mass Index) 35.94 kg/m2 [employer] [facility] [place] 08-18-2019 19:08-0400 Body Temperature 98.6 [degF] [facility] [place] 08-18-2019 19:08-0400 Body weight 97.98 kg Lucia [facility]rier [facility] [place] 08-18-2019 19:08-0400 BP Diastolic 85 mm[Hg] [facility] [place] 08-18-2019 19:08-0400 BP Systolic 146 mm[Hg] Lucia Grier [facility] , [place] 08-18-2019 19:08-0400 Height 165.1 cm [facility] , [place] 08-18-2019 19:08-0400 Pulse (Heart Rate) 82 /min Luciavesna Grier [facility], [place] 08-18-2019 19:08-0400 Pulse Oximetry 98 % [facility] [place] 08-18-2019 19:08-0400 Respiratory Rate 18 /min Luciavesna Grier [facility], [place] 05-23-2019 06:01-0400 BP Diastolic 76 mm[Hg] [place] 05-23-2019 06:01-0400 BP Systolic 127 mm[Hg] [place], [place] 05-23-2019 06:01-0400 Pulse (Heart Rate) 72 /min [place], [place] 05-23-2019 06:01-0400 Pulse Oximetry 97 % [facility], [place] 05-23-2019 06:01-0400 Respiratory Rate 16 /min Saad [place], [place] 05-23-2019 04:12-0400 BMI (Body Mass Index) 32.59 kg/m2 [place], [place] 05-23-2019 04:12-0400 Body Temperature 98.4 [degF] [place], [place] 05-23-2019 04:12-0400 Body weight 100.11 kg [place], [place] Encounters Encounter Date Encounter Type Care Provider Facility Start: 06-12-2024 ambulatory ROLL SCALE WORKER-C JULEE DONOHUE Facility:[facility] Start: 05-20-2024 End: 05-20-2024 Emergency department patient visit Laya Encarnacion MD Work Phone: [facility] Comment on above: Abdominal pain, epig astric (Primary Dx) Start: 05-13-2024 End: 05-13-2024 ambulatory ROLL SCALE WORKER-C JULEE DONOHUE Facility:[facility] Start: 05-09-2024 End: 05-09-2024 ambulatory KIKA KENT Facility:[facility] Start: 05-06-2024 End: 05-06-2024 Bamboo flowsheet Esdras Patiño MD Work Phone: [facility] Start: 05-06-2024 End: 05-06-2024 Bamboo flowsheet Esdras Patiño MD Work Phone: [facility] Start: 05-06-2024 End: 05-06-2024 Office outpatient visit 15 minutes Esdras Patiño MD Work Phone: [facility] Comment on above: Nontoxic multinodula r goiter (CMS/HCC) (Primary Dx) Start: 05-06-2024 End: 05-06-2024 ambulatory ESDRAS PATIÑO Not Available Start: 05-01-2024 End: 05-01-2024 Bamboo flowsheet Kika Angimor [employer] Work Phone: [facility] Start: 05-01-2024 End: 05-01-2024 Bamboo flowsheet Kika Angimor [employer]OMOTIVE HEAV[employer] MECH[employer]IC Work Phone: [facility] Start: 05-01-2024 End: 05-01-2024 Office outpatient visit 25 minutes 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: [facility] Comment on above: Cervicalgia (Primary Dx); Muscle spasm; Bilateral occipital neuralgia; Low back pain with sciatica, sciatica laterality unspecified, unspecified back pain laterality, unspecified chronicity; Paresthesia of skin; Intractable chronic migraine without aura and without status migrainosus (CMS/HCC) Start: 05-01-2024 End: 05-01-2024 ambulatory KIKA GILLMOR Not Available Start: 04-15-2024 End: 04-15-2024 Telephone encounter Esdras Patiño MD Work Phone: [facility] Comment on above: Results Start: 04-10-2024 End: 04-10-2024 Clinisync Result Encounter Esdras Patiño MD Work Phone: [facility] Unsolicited Start: 04-10-2024 End: 04-10-2024 Clinisync Result Encounter Esdras Patiño MD Work Phone: [facility] Unsolicited Start: 04-10-2024 End: 04-10-2024 ambulatory Rinroby Mcgowan Work Phone: [facility] Work Phone: Start: 04-10-2024 End: 04-10-2024 Departed Referred Rin Mcgowan Work Phone: [facility] Start: 04-09-2024 End: 04-09-2024 Clinisync Result Encounter Esdras Patiño MD Work Phone: [facility] External [facility] Unsolicited Start: 04-09-2024 End: 04-09-2024 Clinisync Result Encounter Esdras Patiño MD Work Phone: [facility] Unsolicited Start: 04-09-2024 End: 04-09-2024 ambulatory Rinroby Mcgowan Work Phone: [facility] Work Phone: Start: 04-09-2024 End: 04-09-2024 Departed Referred Rin Mcgowan Work Phone: [facility] Start: 04-05-2024 End: 04-05-2024 Bamboo flowsheet Esdras Patiño MD Work Phone: [facility] Start: 04-05-2024 End: 04-05-2024 Bamboo flowsheet Esdras Patiño MD Work Phone: [facility] Start: 04-05-2024 End: 04-05-2024 Clinisync Result Encounter Esdras Patiño MD Work Phone: [facility] Unsolicited Start: 04-05-2024 End: 04-05-2024 Patient encounter procedure Esdras Patiño [facility] Start: 04-05-2024 End: 04-05-2024 ambulatory Esdras Patiño Facility:[facility] Start: 04-05-2024 End: 04-05-2024 Office outpatient new 45 minutes Esdras Patiño MD Work Phone: [facility] Comment on above: Nontoxic multinodula r goiter (CMS/HCC) (Primary Dx) Start: 03-15-2024 End: 03-15-2024 ambulatory Nimco Amrik Yumiko Facility:[facility] Start: 03-15-2024 End: 03-15-2024 Patient encounter procedure Nimco Amrik Yumiko [facility] Start: 03-07-2024 End: 03-07-2024 Emergency department patient visit Austyn Stauffer MD Work Phone: [facility] Comment on above: Fall, initial encoun ter (Primary Dx); Contusion of left shoulder, initial encounter; Rib contusion, left, initial encounter Start: 03-04-2024 ambulatory KIKA Warei ty:[facility] Start: 02-13-2024 End: 02-13-2024 Bamboo flowsheet 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: [facility] Start: 02-13-2024 End: 02-13-2024 Bamboo flowsheet 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: [facility] Start: 02-13-2024 End: 02-13-2024 Office outpatient visit 25 minutes 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: [facility] Comment on above: Cervicalgia (Primary Dx); Bilateral occipital neuralgia; Paresthesia of skin; Intractable chronic migraine without aura and without status migrainosus (CMS/HCC); Low back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 reviewed (C) exercise recommendations reviewed Patient set the following goals: - patient set personal goal using given handout. 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 She is down over 21 pounds from the start of program which has reached our secondary goal of 10% weight loss (21.26 pounds). Praised her for her efforts in cutting back on potatoes and [place] and starches sugary items however we enforced that we do not want to completely restrict ourselves as this is often not sustainable. Encouraged to limit and have smaller portions of higher carbohydrate items. Patient is open to trying new vegetables as she states she has never had any broccoli or carrots in her life. Encouraged her to start with frozen broccoli as often it is milder and taste. She is to reschedule her initial group dietitian class as she missed it due to illness Mar, Body mass index [BMI] 32.0-32.9, adult (ICD-10 - Z68.32) Patient's BMI is now less than 30. Praised patient for her efforts in lowering BMI out of obesity category. Mar, Loud snoring (ICD-10 - R06.83) Mar, Bipolar 1 disorder, depressed (ICD-10 - F31.9) Patient denies any significant fluctuations in her mood and denies any medication changes since last visit. She is still taking gabapentin and Vraylar which can be weight positive medication. Patient verbalizes understanding. Mar, Chronic migraine without aura without status migrainosus, not intractable (ICD-10 - G43.709) She denies any changes in the frequency of her migraines. 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 Her PCP is also started her on metformin which is ordered twice daily however she admits she is only taking it once daily as she vomited with one of the doses. She has had some positive effects from the Victoza with feeling tai faster and eating less junk food as well as a weight loss of 6.7 pounds. Patient will have her initial dietitian appointment on 02/07/2022 Continue Victoza 1.8 mg, patient also on metformin She needs to incorporate some type of activity or exercise encouraged to start with 10 minutes twice a week and work up slowly to a goal of 150 minutes weekly She needs to add more vegetables into her diet we discussed this is a time to incorporate them as a medication can help vegetables and healthier items be more palatable. Encouraged adding 1 vegetable into 1-2 meals per week initially Jan, Body mass index [BMI] 32.0-32.9, adult (ICD-10 - Z68.32) Jan, Loud snoring (ICD-10 - R06.83) She denies any worsening of her sleep habits, snoring or morning headaches. Consider sleep study based on patient's clinical course Jan, Bipolar 1 disorder, depressed (ICD-10 - F31.9) She denies any significant changes in her mood or depressive thoughts Jan, Chronic migraine without aura without status migrainosus, not intractable (ICD-10 - G43.709) She denies any changes in the frequency of her migraines. Jan, Depression with anxiety (ICD-10 - F41.8) [facility] Other 10-17-2022 Evaluation note* Encounter Date Diagnosis Assessment Notes Treatment Notes Treatment Clinical Notes Dec, Drug-induced obesity (ICD-10 - E66.1) Findings consistent with obesity. We discussed the possibility of medications having a weight positive effect however will be taken into consideration in the big picture of weight management in addition to stable mood. Patient has previously been on metformin however cannot tolerate due to severe diarrhea. Patient understands that obesity increases risk of multiple comorbidities associated with weight gain especially if there is a genetic component. Discussed importance of adopting a healthier lifestyle including better diet choices as well as incorporating some type of activity and exercise In order to decrease or eliminate risk of impending diseases associated with excessive weight.. Treat with weight loss Dec, Body mass index [BMI] 32.0-32.9, adult (ICD-10 - Z68.32) Discussed goals of BMI 25 or less. We discussed initial weight loss goal of 5% body weight over several months with a second goal of 10% body weight this will be achieved by decreasing amount of times eating out fast food and incorporating more fruits and vegetables. Patient seems open to trying new vegetables when reviewing list of nonstarchy vegetables to try to introduce into her diet. Advised to use online resources to find recipes and try different ways of preparing meals Dec, Loud snoring (ICD-10 - R06.83) Patient has had previous sleep study which was reported by patient as negative without need for positive pressure airway device. Consider reevaluation as needed depending on patient's clinical course Dec, Bipolar 1 disorder, depressed (ICD-10 - F31.9) Reviewed medication list with patient and advised that she is on some weight positive medications however this is all taken into consideration with risk versus benefit of both mood and weight balance. It seems as though patient has trialed several different medication regimens and has landed on this 1 that seems to be working for her. She does however have a starting PHQ-9 of 15 although this could be correlated partially with her sleep and lack of exercise. Dec, Chronic migraine without aura without status migrainosus, not intractable (ICD-10 - G43.709) Patient does admit to frequent headaches and weekly migraines although this has improved with increase of her Topamax which can be helpful with both migraines and weight loss. Advised that sleep apnea can contribute to daily headaches especially when experienced in the morning. Dec, Depression with anxiety (ICD-10 - F41.8) PHQ-9 is positive for moderate to severe depression with a starting score of 15. Patient states mood is stable overall today and denies any significant mood swings or depressive thoughts. We would use extreme caution or avoid medications for weight loss including Qsymia, phentermine due to possibility of worsening depression. Discussed this with patient when evaluating for appropriate medication. [facility] Other 09-11-2022 Hospital Discharge instructions Patient Education 11/14/2021 01:19:55 Chest Wall Pain Chest Wall Pain Chest wall pain is pain in or around the bones and muscles of your chest. Sometimes, an injury causes this pain. Excessive coughing or overuse of arm and chest muscles may also cause chest wall pain.Sometimes, the cause may not be known. This pain may take several weeks or longer to get better. Follow these instructions at home: Managing pain, stiffness, and swelling If directed, put ice on the painful area: ?Put ice in a plastic bag. ?Place a towel between your skin and the bag. ?Leave the ice on for 20 minutes, 2 3 times per day. Activity Rest as told by your health care provider. Avoid activities that cause pain. These include any activities that use your chest muscles or your abdominal and side muscles to lift heavy items. Ask your health care provider what activities are safe for you. General instructions Take enua-pim-tztlvlc and prescription medicines only as told by your health care provider. Do not use any products that contain nicotine or tobacco, such as cigarettes, e- cigarettes, and chewing tobacco. These can delay healing after injury. If you need help quitting, ask your health care provider. Keep all follow-up visits as told by your health care provider. This is important. Contact a health care provider if: You have a fever. Your chest pain becomes worse. You have new symptoms. Get help right away if: You have nausea or vomiting. You feel sweaty or light-headed. You have a cough with mucus from your lungs (sputum) or you cough up blood. You develop shortness of breath. These symptoms may represent a serious problem that is an emergency. Do not wait to see if the symptoms will go away. Get medical help right away. Call your local emergency services (911 in the [place] Do not drive yourself to the hospital. Summary Chest wall pain is pain in or around the bones and muscles of your chest. Depending on the cause, it may be treated with ice, rest, medicines, and avoiding activities that cause pain. Contact a health care provider if you have a fever, worsening chest pain, or new symptoms. Get help right away if you feel light-headed or you develop shortness of breath. These symptoms maybe an emergency. This information is not intended to replace advice given to you by your health care provider. Make sure you discuss any questions you have with your health care provider. Document Released: 02/20/2006 Document Revised: 08/23/2018 Document Reviewed: 08/23/2018 [employer] Patient Education 2020 [employer]. Follow Up Care 11/13/2021 20:41:28 With:Rin Mcgowan Address: [address] [place] [address], [address] [place] [phone] Business (1) When:11/17/2021 Comments:Return to the emergency room if your pain gets worse or any new symptoms. [facility]09-10-2022 Evaluation + Plan noteExtracted from: Title:ED Note Author:Sybil ALEGRE, Belkys Rowley ate:11/13/21 1. Chest pain (R07.9: Chest pain, unspecified) Orders: ketorolac, 30 mg = 1 mL, Injection, IV Push, Once, Stop date 11/14/21 0:38:00 EDT, STAT, Start date 11/14/21 0:38:00 EDT, 11/14/21 0:38:00 EDT naproxen, 500 mg = 1 tab(s), Oral, BID, # 20 tab(s), Refills(s) 0, Pharmacy: [id number], 175, cm, 11/13/21 20:54:00 EDT, Height/Length Dosing, 94.8, kg, 11/13/21 20:53:00 EDT, Weight Dosing [facility]05-24-2022 Hospital Discharge instructions Patient Education 07/27/2021 18:45:37 Muscle Strain, Ysci-bt-Bisl Muscle Strain A muscle strain is an injury that happens when a muscle is stretched longer than normal. This can happen during a fall, sports, or lifting. This can tear some muscle fibers. Usually, recovery from muscle strain takes 1 2 weeks. Complete healing normally takes 5 6 weeks. This condition is first treated with RIDDLE therapy. This involves: Protecting your muscle from being injured again. Resting your injured muscle. Icing your injured muscle. Applying pressure (compression) to your injured muscle. This may be done with a splint or elastic bandage. Raising (elevating) your injured muscle. Your doctor may also recommend medicine for pain. Follow these instructions at home: If you have a splint: Wear the splint as told by your doctor. Take it off only as told by your doctor. Loosen the splint if your fingers or toes tingle, get numb, or turn cold and blue. Keep the splint clean. If the splint is not waterproof: ?Do not let it get wet. ?Cover it with a watertight covering when you take a bath or a shower. Managing pain, stiffness, and swelling If directed, put ice on your injured area. ?If you have a removable splint, take it off as told by your doctor. ?Put ice in a plastic bag. ?Place a towel between your skin and the bag. ?Leave the ice on for 20 minutes, 2 3 times a day. Move your fingers or toes often. This helps to avoid stiffness and lessen swelling. Raise your injured area above the level of your heart while you are sitting or lying down. Wear an elastic bandage as told by your doctor. Make sure it is not too tight. General instructions Take ansd-lbc-celoiok and prescription medicines only as told by your doctor. Limit your activity. Rest your injured muscle as told by your doctor. Your doctor may say that gentle movements are okay. If physical therapy was prescribed, do exercises as told by your doctor. Do not put pressure on any part of the splint until it is fully hardened. This may take many hours. Do not use any products that contain nicotine or tobacco, such as cigarettes and e-cigarettes. These can delay bone healing. If you need help quitting, ask your doctor. Warm up before you exercise. This helps to prevent more muscle strains. Ask your doctor when it is safe to drive if you have a splint. Keep all follow-up visits as told by your doctor. This is important. Contact a doctor if: You have more pain or swelling in your injured area. Get help right away if: You have any of these problems in your injured area: ?You have numbness. ?You have tingling. ?You lose a lot of strength. Summary A muscle strain is an injury that happens when a muscle is stretched longer than normal. This condition is first treated with RIDDLE therapy. This includes protecting, resting, icing, adding pressure, and raising your injury. Limit your activity. Rest your injured muscle as told by your doctor. Your doctor may say that gentle movements are okay. Warm up before you exercise. This helps to prevent more muscle strains. This information is not intended to replace advice given to you by your health care provider. Make sure you discuss any questions you have with your health care provider. Document Released: 11/29/2008 Document Revised: 04/18/2019 Document Reviewed: 03/29/2017 [employer] Patient Education 2019 [employer] Follow Up Care 07/27/2021 17:56:19 With:Earlene HAHN CNP Address:Unknown When:07/30/2021 [facility]05-24-2022 Evaluation + Plan noteExtracted from: Title:ED Note Author:Terri Lee PA-C Date :07/27/21 1. Strain of left foot (S96. 912A: Strain of unspecified muscle and tendon at ankle and foot level, left foot, initial encounter) Orders: ketorolac, 30 mg = 1 mL, Injection, IntraMuscular, Once, Stop date 07/27/21 18:17:00 EDT, STAT, Start date 07/27/21 18:17:00 EDT, 07/27/21 18:17:00 EDT Post-op Shoe XR Foot 3+ Views Left [facility] Future App[facility]ments Appointment Date:08/30/2023 09:30:00 AM Scheduled Provider:Dariela Alvarez MD Location:[facility] App[facility]ment Type:[facility] Future Appointments Appointment Date:09/27/2023 10:00:00 AM Scheduled Provider:Dariela Alvarez MD Location:[facility] Appointment Type:[facility] Patient [facility] Evaluation + Plan note Future Appointments Appointment Date:03/19/2024 11:00:00 AM Scheduled Provider: Location[facility] Appointment Type:PT 45 (FT) Appointment Date:03/21/2024 10:15:00 AM Scheduled Provider: Location[facility] Appointment Type:PT 45 (FT) Appointment Date:03/26/2024 09:15:00 AM Scheduled Provider: Location[facility] Appointment Type:PT 45 (FT) Appointment Date:03/28/2024 09:15:00 AM Scheduled Provider: Location[place] Appointment Type:PT 45 (FT) Appointment Date:04/02/2024 11:15:00 AM Scheduled Provider: Location[place] Appointment Type:PT Re-Eval 45 (FT) Appointment Date:04/04/2024 11:45:00 AM Scheduled Provider: Location[place] Appointment Type:PT 45 (FT) Appointment Date:04/09/2024 09:15:00 AM Scheduled Provider: Location[place] Appointment Type:PT 45 (FT) Appointment Date:04/11/2024 09:30:00 AM Scheduled Provider: Location[place] Appointment Type:PT 45 (FT) Appointment Date:04/16/2024 11:00:00 AM Scheduled Provider: Location:[place] Appointment Type:PT 45 (FT) Appointment Date:04/18/2024 11:00:00 AM Scheduled Provider: Location:[place] Appointment Type:PT 45 (FT) Appointment Date:04/23/2024 11:00:00 AM Scheduled Provider: Location:[place] Appointment Type:PT 45 (FT) Appointment Date:04/25/2024 11:45:00 AM Scheduled Provider: Location:[place] Appointment Type:PT Re-Eval 45 (FT) [facility] Evaluation + Plan note Future Appointments Appointment Date:04/15/2024 08:30:00 AM Scheduled Provider: Location:[place] Appointment Type:PT Re-Eval 45 (FT) Appointment Date:04/16/2024 11:00:00 AM Scheduled Provider: Location:[place] Appointment Type:PT 45 (FT) Appointment Date:04/18/2024 11:00:00 AM Scheduled Provider: Location:[place] Appointment Type:PT 45 (FT) Appointment Date:04/23/2024 11:00:00 AM Scheduled Provider: Location:[place] Appointment Type:PT 45 (FT) Appointment Date:04/25/2024 11:45:00 AM Scheduled Provider: Location:[place] Appointment Type:PT Re-Eval 45 (FT) [facility] evaluation noteNo InformationNodoctors [facility] of [facility] [employer] Other Evaluation note* Diagnosis Facial swelling- Primary Swelling, mass, or lump in head and neck documented in this encounter [facility] Work Phone: evaluation noteNo assessment information [facility] Work Phone: Evaluation noteNoBioCee [employer] Other evaluation noteNoBioCee [employer] Other Evaluation note* Diagnosis Diverticulitis of colon- Primary Diverticulitis of colon (without mention of hemorrhage) documented in this encounter [facility] [employer] HEALTHEvaluation note* Diagnosis Tinea manuum- Primary Dermatophytosis of hand documented in this encounter [facility] HEALTHEvaluation note* Diagnosis Intractable chronic migraine without aura and without status migrainosus (CMS/HCC)- Primary Paresthesia of skin Primary insomnia Persistent disorder of initiating or maintaining sleep Cervicalgia Bilateral carpal tunnel syndrome Carpal tunnel syndrome Muscle spasm Spasm of muscle Fibromyalgia Unspecified myalgia and myositis [facility] Diagnosis Bilateral occipital neuralgia- Primary Cervicalgia [facility]* Diagnosis Fall, initial encounter- Primary Contusion of left shoulder, initial encounter Rib contusion, left, initial encounter [facility] Diagnosis COVID-19 virus infection- Primary Non-recurrent acute suppurative otitis media of both ears without spontaneous rupture of tympanic membranes Chronic maxillary sinusitis [facility] Diagnosis Cervicalgia- Primary Bilateral occipital neuralgia Paresthesia of skin Intractable chronic migraine without aura and without status migrainosus (CMS/HCC) Low back pain with sciatica, sciatica laterality unspecified, unspecified back pain laterality, unspecified chronicity [facility]* Diagnosis Nontoxic multinodular goiter (CMS/HCC)- Primary Nontoxic multinodular goiter [facility]* Diagnosis Cervicalgia- Primary Muscle spasm Spasm of muscle Bilateral occipital neuralgia Low back pain with sciatica, sciatica laterality unspecified, unspecified back pain laterality, unspecified chronicity Paresthesia of skin Intractable chronic migraine without aura and without status migrainosus (CMS/HCC) [facility]* Diagnosis Nontoxic multinodular goiter (CMS/HCC)- Primary Nontoxic multinodular goiter [facility]* Diagnosis Abdominal pain, epigastric- Primary [facility] Narrative - Reported* Type Description Date Medical History anxiety Medical History neuropathy Medical History Fibromyalgia Medical History Migraines Medical History Arthritis Surgical History appendex Surgical History cholesectomy Surgical History Hysterectomy Hospitalization History see above [facility] Other History [facility] - [facility] Other History general N[facility]ative - [facility] Other Hisaqml general Narrative - Reported* Type Description Date Medical History anxiety Medical History neuropathy Medical History Fibromyalgia Medical History Migraines Medical History Arthritis Medical History COVID 2022 Surgical History appendex Surgical History cholesectomy Surgical History Hysterectomy Hospitalization History see above [facility] resmio Other Hospital course Narrative No data available for this section [facility] Discharge instructions No data available for this section [facility] Discharge instructions* Attachments The following attachments cannot be sent through Care Everywhere. * Tinea Corporis (Vietnamese) [facility]* Attachments The following attachments cannot be sent through Care Everywhere. * Chest Contusion (Vietnamese) * Rib Contusion (Vietnamese) [facility] Attachments The following attachments cannot be sent through Care Everywhere. * Coronavirus Disease (COVID-19): General Info (Vietnamese) * Coronavirus Disease (COVID-19): Isolation (Vietnamese) * Otitis Media (Vietnamese) [facility]* Attachments The following attachments cannot be sent through Care Everywhere. 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 Expl anation Advance Directives and Living Will Power of Roll Scale Worker Documents on File Type Date Recorded 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 Expl anation Advance Directives and Living Will Power of Roll Scale Worker Documents on File Type Date Recorded 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 Expl anation ACP-Advance Directive ACP-Power of Roll Scale Worker Advance Directive Response Recorded Date/ Time Advance Directives No December 16, 2021 9:02am Advance Directive Response Recorded Date/ Time Advance Directives No December 16, 2021 8:02am Reason for Referral Status Reason Specialty Diagnoses / Procedures Referre d By Contact Referred To Contact [facility] Diagnoses Dysphagia, unspecified type Globus sensation Procedures FL ESOPHAGRAM Saad White, DO [address] [place] [address] Status Reason Specialty Diagnoses / Procedures Referre d By Contact Referred To Contact [facility] Diagnoses Dysphagia, unspecified type Globus sensation Procedures FL ESOPHAGRAM HC FLURO ESOPHAGRAM Saad White, DO [address] [place] [address] [facility] [address] [place] [address] Status Reason Specialty Diagnoses / Procedures Referre d By Contact Referred To Contact [facility] Diagnoses Cervical radiculopathy Other chronic pain Myalgia Carpal tunnel syndrome, unspecified laterality Procedures MRI CERVICAL SPINE WO CONTRAST Laya Newman, DO [address] [place] [address] Discharge Instructions * Attachments The following attachments cannot be sent through Care Everywhere. * Dysphagia: General Info (Vietnamese) documented in this encounter* Attachments The following attachments cannot be sent through Care Everywhere. * Lymph Nodes: Swollen (Vietnamese) documented in this encounter* Instructions* Gaurav Medina MD - 01/21/2020 Warm moist heat to the area, best done in a warm bath. Return if worse for reevaluation but otherwise follow-up with your family physician in 3 days for recheck documented in this encounter Assessments Diagnosis Dysphagia, unspecified type Globus sensation Gastrointestinal malfunction arising from mental factors Pyuria Other nonspecific finding on examination of urine Diagnosis Dysphagia, unspecified type Globus sensation Gastrointestinal malfunction arising from mental factors Diagnosis Lymphadenopathy of head and neck region Diagnosis Cervical radiculopathy Brachial neuritis or radiculitis nos Other chronic pain Myalgia Mylagia and myositis, unspecified Carpal tunnel syndrome, unspecified laterality Diagnosis Bilateral groin pain Abdominal pain, unspecified site Chief Complaint and Reason for Visit Chief Complaint Obesity Chief Complaint Admit Date Unknown April 09, 2024 7 :07am Chief Complaint Admit Date Unknown April 09, 2024 7 :07am Unknown April 10, 2024 9 :00am Additional Source Comments INFORMATION SOURCE (unrecogn ized section and content) DATE CREATED AUTHOR 05/26/2018 [facility] DATE CREATED AUTHOR AUTHOR'S ORGANIZ ATION 06/15/2018 [facility] DATE CREATED AUTHOR AUTHOR'S ORGANIZ ATION 04/19/2021 [facility] DATE CREATED AUTHOR AUTHOR'S ORGANIZ ATION 11/12/2023 [facility] DATE CREATED AUTHOR AUTHOR'S ORGANIZ ATION 11/23/2023 [facility] DATE CREATED AUTHOR AUTHOR'S ORGANIZ ATION 04/14/2024 [facility] DATE CREATED AUTHOR AUTHOR'S ORGANIZ ATION 04/16/2024 [facility] DATE CREATED AUTHOR AUTHOR'S ORGANIZ ATION 05/07/2024 [facility] DATE CREATED AUTHOR AUTHOR'S ORGANIZ ATION 05/14/2024 [facility] DATE CREATED AUTHOR AUTHOR'S ORGANIZ ATION 05/21/2024 [facility] Reason for Visit (unrecogniz ed section and content) Reason Comments Dysphagia patient states that she woke up and she feels like she cant swallow well, can't spit. feels like something migh be stuck Status Reason Specialty Diagnoses / Procedures Referre d By Contact Referred To Contact Open Radiology Diagnoses Dysphagia, unspecified type Globus sensation Procedures FL ESOPHAGRAM HC FLURO ESOPHAGRAM Saad White, DO [address] [place] [address] [facility] [address] [place] [id number] Reason Comments Neck Pain Pt states has right side neck and throat pain for two weeks. States father of cancer and had throat cancer. Pt is worried. Status Reason Specialty Diagnoses / Procedures Referre d By Contact Referred To Contact Closed Radiology Diagnoses Radiculopathy, site unspecified Other chronic pain Myalgia, unspecified site Carpal tunnel syndrome, unspecified upper limb Procedures OR MRI, CERV SPINE Laya Newman, DO [address] [place] [address] [facility] [address] [place] [address] Reason Comments Groin Pain bilat groin pain garo t started yesterday - denies injury - denies rash Reason Comments Facial Swelling Swelling to face sta rting 1 hour ago. Unknown cause. Reason Comments Abdominal Pain Left lower abdominal pain that started last night and feels like she is being stabbed. Denies pain on urination or vomiting. Reason Comments Rash Patient has itchy ra sh she believes to be ringworm on left hand starting 3 days ago. Reason Comments Migraine Numbness Tingling Reason Comments Fall Pt reports she fell on Monday landing on her left side and left arm. C/O left chest and breast pain and left arm pain. Reason Comments Pharyngitis Cough, sore throat, and body aches x 5 days. Reason Comments Migraine Numbness Tingling Pain Reason Comments Thyroid Nodule Reason Onset Date Comments Results 04/15/2024 Reason Comments Migraine Neck Pain Back Pain Reason Comments Thyroid Nodule Follow up [facility] Reason Comments Abdominal Pain Mid Abdominal pain s tarted and has gotten worse. Care Team (unrecognized sect ion and content) Youth Career Specialist Relationship Specialty Start Date End Date Rin Mcgowan, ROPE RIDER - DIGITAL MEDIA SPECIALIST [address] [place] [address] PCP - General 09/08/14 Team Status: Active Member Role Status Dates Patricia Rivera APRN Attending Provider Active Rin Mcgowan Primary Care Provider Active Team Status: Inactive Member Role Status Dates Irina Jones MD Attending Provider Active Youth Career Specialist Relationship Specialty Start Date End Date Rin Mcgowan, ROPE RIDER - DIGITAL MEDIA SPECIALIST [address] [place] [phone] PCP - General 09/08/14 Youth Career Specialist Relationship Specialty Start Date End Date Rin Mcgowan ROPE RIDER - DIGITAL MEDIA SPECIALIST [address] [place] [phone] PCP - General 09/08/14 Youth Career Specialist Relationship Specialty Start Date End Date Nimco Armas MD [address] [place] [phone] PCP - General Family Medicine 05/17/23 Youth Career Specialist Relationship Specialty Start Date End Date Nimco Armas MD [address] [place] [phone] PCP - General Family Medicine 05/17/23 Youth Career Specialist Relationship Specialty Start Date End Date Nimco Armas MD [address] [place] [address] PCP - General Family Medicine 05/17/23 Youth Career Specialist Relationship Specialty Start Date End Date Nimco Armas MD [address] [place] [phone] PCP - General Family Medicine 05/17/23 Orlin Gordillo DO [address] [place] [phone] Referring Physician Neurology 01/04/24 Youth Career Specialist Relationship Specialty Start Date End Date Nimco Armas MD [address] [facility] [place] [phone] PCP - General Family Medicine 05/17/23 Orlin Gordillo DO [address] [place] [phone] Referring Physician Neurology 01/04/24 Youth Career Specialist Relationship Specialty Start Date End Date Hai Stock MD [address] [place], [place] [phone] PCP - General Internal Medicine 08/01/23 Youth Career Specialist Relationship Specialty Start Date End Date Rin Mcgowan Bear, ROPE RIDER - DIGITAL MEDIA SPECIALIST [address] [place] [phone] PCP - General 09/08/14 Youth Career Specialist Relationship Specialty Start Date End Date Nimco Armas MD [address] [place] [phone] PCP - General Family Medicine 05/17/23 Orlin Gordillo DO [address] [place] [id number] Referring Physician Neurology 01/04/24 Youth Career Specialist Relationship Specialty Start Date End Date Nimco Armas MD [address] [place] [phone] PCP - General Family Medicine 05/17/23 Orlin Gordillo DO [address] [place] [address] Referring Physician Neurology 01/04/24 Youth Career Specialist Relationship Specialty Start Date End Date Nimco Armas MD [address] [place] [phone] PCP - General Family Medicine 05/17/23 Orlin Gordillo DO [address] [place] [address] Referring Physician Neurology 01/04/24 Youth Career Specialist Relationship Specialty Start Date End Date Nimco Armas MD [address] [place] [phone] PCP - General Family Medicine 05/17/23 Orlin Gordillo DO [address] [place] [address] Referring Physician Neurology 01/04/24 Youth Career Specialist Relationship Specialty Start Date End Date Nimco Armas MD [address] [place] [phone] PCP - General Family Medicine 05/17/23 Orlin Gordillo DO [address] [place], [place] [phone] Referring Physician Neurology 01/04/24 Team Status: Active Member Role Status Dates Rin Mcgowan Primary Care Provider Active Team Status: Inactive Member Role Status Dates Rin Mcgowan Primary Care Provider Active Star t: April 09, 2024 End: April 09, 2024 Esdras Patiño Jr, MD Attending Provider Active Start: April 09, 2024 End: April 09, 2024 Team Status: Inactive Member Role Status Dates Sridevi Mccarthy MD Attending Provider Active Start: April 10, 2024 End: April 10, 2024 Youth Career Specialist Relationship Specialty Start Date End Date Nimco Armas MD [address] [place] [phone] PCP - General Family Medicine 05/17/23 Orlin Gordillo DO [address] [place], [place] [phone] Referring Physician Neurology 01/04/24 Youth Career Specialist Relationship Specialty Start Date End Date Nimco Armas MD [address] [place] [phone] PCP - General Family Medicine 05/17/23 Orlin Gordillo DO [address] [place] [address] Referring Physician Neurology 01/04/24 Youth Career Specialist Relationship Specialty Start Date End Date Hai Stock MD [address] [place], [place] [phone] PCP - General Internal Medicine 08/01/23 Goals (unrecognized section and content) Goals may be documented in a n alternate section Ordered Prescriptions (unrec ognized section and content) Prescription Sig Dispensed Refills Start Date End Da te HYDROcodone-acetaminophen (NORCO) 5-325 MG per tabletIndications:Diverti culitis of colon Take 1 tablet by mouth every 6 hours as needed for Pain for up to 5 days. Max Daily Amount: 4 tablets 15 tablet 0 07/03/2023 07/08/2023 ondansetron (ZOFRAN-ODT) 4 MG disintegrating tablet Take 1 tablet by mouth 3 times daily as needed for Nausea or Vomiting 10 tablet 0 07/03/2023 metroNIDAZOLE (FLAGYL) 500 MG tablet Take 1 tablet by mouth 3 times daily for 7 days 21 tablet 0 07/03/2023 07/10/2023 ciprofloxacin (CIPRO) 500 MG tablet Take 1 tablet by mouth 2 times daily for 7 days 14 tablet 0 07/03/2023 07/10/2023 Prescription Sig Dispensed Refills Start Date End Da te clotrimazole-betamethason e (LOTRISONE) 1-0.05 % cream Apply topically 2 times daily. 15 g 0 07/22/2023 Prescription Sig Dispensed Refills Start Date End Da te lidocaine 4 % external patch Place 1 patch onto the skin daily 30 patch 03/07/2024 04/06/2024 ketorolac (TORADOL) 10 MG tablet Take 1 tablet by mouth every 6 hours as needed for Pain 12 tablet 03/07/2024 Prescription Sig Dispensed Refills Start Date End Da te amoxicillin (AMOXIL) 500 MG capsule Take 1 capsule by mouth 3 times daily for 10 days 30 capsule 0 05/06/2023 05/16/2023 Prescription Sig Dispense Quantity Refills Last Filled Start Date End Date sucralfate (CARAFATE) 1 GM tablet Take 1 tablet by mouth 4 times daily 120 tablet 05/20/2024 ondansetron (ZOFRAN-ODT) 4 MG disintegrating tablet Take 1 tablet by mouth every 6 hours as needed for Nausea or Vomiting 21 tablet 05/20/2024 omeprazole (PRILOSEC) 20 MG delayed release capsule 1 tab PO BID x 2 weeks, then 1 tab PO daily daily thereafter 42 capsule 05/20/2024 Scheduled Active and Recently Administ ered Medications (unrecognized section and content) Medication Order 07/01/2023 07/02/2023 07/03/2023 ketorolac (TORADOL) injection 15 mg (COMPLETED) 15 mg, IntraVENous, ONCE, 1 dose, On Mon07/03/23 at 1130, Do not administer for more than 5 days. 1134 (Given - Provid er: Abhishek Markham RN) Scheduled Medication Order 03/05/2024 03/06/2024 03/07/2024 HYDROcodone-acetaminophen (NORCO) 5-325 MG per tablet 1 tablet (COMPLETED) 1 tablet, Oral, ONCE, 1 dose, On Nery 03/07/24 at 0930, Maximum dose of acetaminophen is 4000 mg from all sources in 24 hours. 0937 (Given - Provid er: Michell Sidhu RN) ketorolac (TORADOL) injection 15 mg (COMPLETED) 15 mg, IntraVENous, ONCE, 1 dose, On Mon03/07/24 at 0930, Do not administer for more than 5 days. 0936 (Given - Provid er: Michell Sidhu RN) lidocaine 4 % external patch 1 patch 1 patch, TransDERmal, Administer over 12 Hours, DAILY, First dose on Nery 03/07/24 at 0930, Apply patch to left ribs. The parcel carrier's recommendations for the number of patches that can be applied within a 24-hour period varies from 1 to 4 times daily and the duration of application varies from 8 to 24 hours; refer to the parcel carrier's labeling for product-specific recommendations. 0936 (Patch Applied - Provider: Michell Sidhu RN - Comment: left rib)2135 (Due: Patch Removed - Provider: Michell Sidhu RN) sodium chloride 0.9 % bolus 500 mL (COMPLETED) 500 mL (5.43 mL/kg), IntraVENous, at 1,000 mL/hr, Administer over 0.5 Hours, ONCE, On Nery 03/07/24 at 0930, For 1 dose 0937 (New Bag - Prov ider: Michell Siduh RN)1007 (Stopped - Provider: Michell Sidhu RN) PRN Medication Order 03/05/2024 03/06/2024 03/07/2024 iopamidol (ISOVUE-370) 76 % injection 75 mL (COMPLETED) 75 mL, IntraVENous, IMG ONCE PRN, 1 dose, Starting on Nery 03/07/24 at 0931, Until Nery 03/07/24 at 1003, Other 1003 (Given - Provid er: Essie Condon) Scheduled Medication Order 05/18/2024 05/19/2024 05/20/2024 aluminum & magnesium hydroxide-simethicone (MAALOX PLUS) 30 mL, lidocaine viscous hcl (XYLOCAINE) 5 mL (GI COCKTAIL) (COMPLETED) Oral, ONCE, On 05/20/24 at 0930, For 1 dose, Take 5 mL from lidocaine viscous 2% cup and mix with 30 mL of maalox and then administer. 926 (Given - Provid er: Laverne Carmona RN) ondansetron (ZOFRAN) injection 4 mg (COMPLETED) 4 mg, IntraVENous, ONCE, 1 dose, On 05/20/24 at 0845 08 (Given - Provid er: Laverne Carmona RN) pantoprazole (PROTONIX) 40 mg in sodium chloride (PF) 0.9 % 10 mL injection (COMPLETED) 40 mg, IntraVENous, ONCE, On 05/20/24 at 0930, For 1 dose, Reconstitute with 10 mL 0.9 % sodium chloride and administer over at least 2 minutes. 926 (Given - Provid er: Laverne Carmona RN) sodium chloride 0.9 % bolus 1,000 mL (COMPLETED) 1,000 mL (11.4 mL/kg), IntraVENous, at 983.6 mL/hr, Administer over 61 Minutes, ONCE, On Mon05/20/24 at 0845, For 1 dose 08 (New Bag - Prov ider: Laverne Carmona RN)0955 (Stopped - Provider: Laverne Carmona RN) FOR RECORDS PERTAINING TO PATIENTS WHO ARE OR HAVE BEEN ENROLLED IN A CHEMICAL DEPENDENCY/SUBSTANCEABUSE PROGRAM, SOME INFORMATION MAY BE OMITTED. This clinical summary was aggregated from multiple sources. Caution should be exercised in using it in the provision of clinical care. This summary normalizes information from multiple sources, and as a consequence, information in this document may materially change the coding, format and clinical context of patient data. In addition, data may be omitted in some cases. CLINICAL DECISIONS SHOULD BE BASED ON THE PRIMARY CLINICAL RECORDS. [facility] [facility]. provides no warranty or guarantee of the accuracy or completeness of information in this document.
--- NOTE | 2024-05-22 18:18 | ED_ITS ---
HPI - Abdominal Pain General Chief Complaint: Abdominal Pain Stated Complaint: ABDOMINAL PAIN Time Seen by Provider: 05/22/24 17:57 Source: patient Mode of arrival: walk-in Limitations: no limitations History of Present Illness HPI narrative: Patient present to ED complaining of abdominal pain. She complains of mostly centralized abdominal pain and mildly to the left upper quadrant. Patient states it has been there since last . She has been having this pain for almost a week. She reports nausea no vomiting. She did have diarrhea this morning but she did take a stool softener. She thought maybe she was constipated so she took the stool softener and then had some diarrhea this morning. She actually went to [place] [facility] on Monday and they did blood work but no CAT scan. They told her at that time they did not think it was diverticulitis. Patient states she has had diverticulitis in the past and this feels exactly the same. She was not placed on antibiotics at that time. She did not need urinary no lower abdominal pain her pain is mostly upper. She said it is even difficult to shave her legs in the shower because she cannot bend over to shave due to the pressure on her abdomen. Alert and in no acute distress vital signs stable. She has had her gallbladder out and she has had a hysterectomy. Related Data Home Medications ?Medication ?Instructions ?Recorded ?Confirmed alprazolam 0.5 mg tablet 0.5 mg PO TID PRN anxiety 04/09/24 05/22/24 amitriptyline 25 mg tablet 12.5 mg PO BEDTIME 04/09/24 05/22/24 cariprazine 3 mg capsule (Vraylar) 3 mg PO DAILY 04/09/24 05/22/24 cyclobenzaprine 10 mg tablet 5 mg PO BEDTIME 04/09/24 05/22/24 gabapentin 400 mg capsule 400 mg PO TID 04/09/24 05/22/24 hydroxychloroquine 200 mg tablet 400 mg PO DAILY 04/09/24 05/22/24 topiramate 100 mg tablet 100 mg PO BID 04/09/24 05/22/24 Allergies Allergy/AdvReac Type Severity Reaction Status Date / Time codeine Allergy rash, hives Verified 05/22/24 18:04 risperidone Allergy Unknown Verified 05/22/24 18:04 duloxetine AdvReac mental Verified 03/19/25 18:04 status change Review of Systems ROS Status of ROS 10 or more systems reviewed and unremark able except as noted in history and below [facility] Medical History (Updated 04/09/24 @ 09:08 by Ginger Mendosa) Paresthesia ?R20.2 - Paresthesia of skin (ICD-10) Fibromyalgia ?M79.7 - Fibromyalgia (ICD-10) Anxiety and depression ?F41.9 - Anxiety disorder, unspecified (ICD-10) ?F32.A - Depression, unspecified (ICD-10) Arthritis ?M19.90 - Unspecified osteoarthritis, unspecified site (ICD-10) Garcia aneurysm ?I67.1 - Cerebral aneurysm, nonruptured (ICD-10) Bipolar disorder ?F31.9 - Bipolar disorder, unspecified (ICD-10) Migraines ?G43.909 - Migraine, unspecified, not intractable, without status migrainosus (ICD-10) Surgical History (Updated 04/09/24 @ 09:08 by Ginger Mendosa) H/O fine needle aspiration with imaging guidance ?Z98.890 - Other specified postprocedural states (ICD-10) History of hysterectomy ?Z90.710 - Acquired absence of both cervix and uterus (ICD-10) History of cholecystectomy ?Z90.49 - Acquired absence of other specified parts of digestive tract (ICD- 10) Status post appendectomy ?Z90.49 - Acquired absence of other specified parts of digestive tract (ICD- 10) Social History Little interest or pleasure in doing things: not at all Feeling down, depressed, or hopeless: not at all Exam Narrative Exam Narrative: Time Seen: [] Vital Signs: [Per nurse's notes.] General: [Alert] Skin: [Warm, dry, no rash.] Head: [Normocephalic, atraumatic.] Neck: [Supple, trachea midline.] Eye: [Pupils are equal, round and reactive to light, extraocular movements are intact, normal conjunctiva.] Ears, nose, mouth and throat: oral mucosa moist. Cardiovascular: [Regular rate and rhythm, no murmur.] Respiratory: [Lungs are clear to auscultation, respirations are non-labored, breath sounds are equal.] Gastrointestinal: [Soft, epigastric tenderness left upper quadrant tenderness, non distended, normal bowel sounds.] MSK: 5 out of 5 muscle strength x 4 extremities no calf pain or edema Psychiatric: [Cooperative, appropriate mood & affect.] Neurological: [Alert and oriented to person, place, time, and situation, no focal neurological deficit observed.] Constitutional Vital Signs, click to edit/add: Last Vital Signs Temp 98.2 F 05/22/24 18:04 Pulse 72 05/22/24 18:04 Resp 18 05/22/24 18:04 BP 139/98 H 05/22/24 18:04 Pulse Ox 98 05/22/24 18:04 O2 Del Method Room Air 05/22/24 18:04 Course Vital Signs Vital signs: Vital Signs Temperature 97.9 F 05/22/24 17:49 Pulse Rate 85 05/22/24 17:49 Respiratory Rate 18 05/22/24 17:49 Blood Pressure 129/89 05/22/24 17:49 Pulse Oximetry 99 05/22/24 17:49 Oxygen Delivery Method Room Air 05/22/24 17:49 Temperature 98.2 F 05/22/24 18:04 Pulse Rate 72 05/22/24 18:04 Respiratory Rate 18 05/22/24 18:04 Blood Pressure 139/98 H 05/22/24 18:04 Pulse Oximetry 98 05/22/24 18:04 Oxygen Delivery Method Room Air 05/22/24 18:04 Discharge Plan Discharge Chief Complaint: Abdominal Pain Prescriptions / Home Meds: No Action alprazolam 0.5 mg tablet 0.5 mg PO TID PRN (Reason: anxiety) amitriptyline 25 mg tablet 12.5 mg PO BEDTIME Rx Instructions: 1/2 to 1 pill Vraylar 3 mg capsule 3 mg PO DAILY cyclobenzaprine 10 mg tablet 5 mg PO BEDTIME Rx Instructions: 1/2 to 1 pill gabapentin 400 mg capsule 400 mg PO TID hydroxychloroquine 200 mg tablet 400 mg PO DAILY topiramate 100 mg tablet 100 mg PO BID Print Language: Tuvaluan Referrals: HARVEY ARMAS [Primary Care Provider] - 1 week
[2024-05-22 18:51] LABS: Basophils Absolute Auto 0.1 10^3/uL (0.0-0.1); Basophils Percent Auto 0.9 % (0.2-2.0); Eosinophils Absolute Auto 0.1 10^3/uL (0.0-0.7); Eosinophils Percent Auto 1.7 % (0.9-7.0); Hematocrit 38.9 % (36.0-48.0); Hemoglobin 13.2 g/dL (12.0-16.0); Immature Granulocytes Abs Auto 0.02 10^3/uL (0.00-0.03); Immature Granulocytes Pct Auto 0.3 % (0.0-0.5); Lymphocytes Absolute Auto 2.8 10^3/uL (1.2-3.8); Lymphocytes Percent Auto 37.4 % (20.5-60.0); Mean Corpuscular HGB Conc 33.9 g/dL (29.9-35.2); Mean Corpuscular Hemoglobin 30.5 pg (26.7-34.0); Mean Corpuscular Volume 89.8 fL (81.0-99.0); Mean Platelet Volume 8.9 fL (9.5-13.5); Monocytes Absolute Auto 0.4 10^3/uL (0.3-0.8); Monocytes Percent Auto 5.7 % (1.7-12.0); Neutrophils Absolute Auto 4.1 10^3/uL (1.4-6.5); Platelet Count 233 10^3/uL (150-450); Red Blood Count 4.33 10^6/uL (4.20-5.40); Red Cell Distribution Width 12.4 % (11.0-15.0); White Blood Count 7.6 10^3/uL (4.0-11.0)
[2024-05-22 18:55] LABS: Bilirubin Urine NEGATIVE (NEGATIVE); Blood Urine NEGATIVE (NEGATIVE); Clarity Urine CLEAR (CLEAR); Color Urine YELLOW (YELLOW); Glucose Urine UA NEGATIVE (NEGATIVE); Ketones Urine TRACE mg/dL (NEGATIVE); Leukocyte Esterase Urine NEGATIVE (NEGATIVE); Nitrite Urine NEGATIVE (NEGATIVE); Protein Urine NEGATIVE (NEG/TRACE); Specific Gravity Urine >=1.030 (1.005-1.025); Urobilinogen Urine 0.2 EU/dL (0.2-1.0); pH Urine 5.5 (5.0-9.0)
[2024-05-22] MEDS: KETOROLAC TROMETHAMINE 30 MG/ML VIAL 15 MG IVP (19:01)
[2024-05-22] MEDS: ONDANSETRON PF 4 MG/2 ML VIAL IV (19:02)
[2024-05-22 19:03] LABS: Bacteria Urine TRACE #/HPF (NONE SEEN); Cast Seen? NONE SEEN #/LPF (NONE SEEN); Crystals Seen? None Seen #/HPF (None Seen); Mucus Urine MODERATE (NONE SEEN); RBC Urine 0-2 #/HPF (0-2); Squamous Epithelial Cell Urine FEW #/LPF (NONE/RARE); Urine Culture Indicated NO
[2024-05-22 19:09] LABS: Alanine Aminotransferase 35 U/L (14-59); Albumin Globulin Ratio 1.2; Albumin Level 4.2 g/dL (3.4-5.0); Alkaline Phosphatase 64 U/L (46-116); Anion Gap 13.5; Aspartate Amino Transferase 20 U/L (15-37); Bilirubin Total 1.1 mg/dL (0.2-1.0); Calcium 9.3 mg/dL (8.5-10.1); Chloride 106 mmol/L (98-107); Estimated GFR (African America >60 (>=60 mL/min/1.73m^2); Estimated GFR (Non-African Ame 54 (>=60 mL/min/1.73m^2); Globulin 3.6 g/dL; Glucose 91 mg/dL (74-106); Potassium 3.5 mmol/L (3.5-5.1); Sodium 141 mmol/L (136-145); Total Protein 7.8 g/dL (6.4-8.2)
[2024-05-22] MEDS: 0.9 % SODIUM CHLORIDE 1,000 ML 100 ML IV (19:28)
--- NOTE | 2024-05-22 19:54 | ED_ITS ---
HPI - Abdominal Pain General Chief Complaint: Abdominal Pain Stated Complaint: ABDOMINAL PAIN Time Seen by Provider: 05/22/24 17:57 Source: patient Mode of arrival: walk-in Limitations: no limitations History of Present Illness HPI narrative: 48-year-old female presents to the emergency department for abdominal pain and was initially seen by Dr. Carpenter and signed out to me after discussing the case with her thoroughly. Please see her full history and physical exam. Related Data Home Medications ?Medication ?Instructions ?Recorded ?Confirmed alprazolam 0.5 mg tablet 0.5 mg PO TID PRN anxiety 04/09/24 05/22/24 amitriptyline 25 mg tablet 12.5 mg PO BEDTIME 04/09/24 05/22/24 cariprazine 3 mg capsule (Vraylar) 3 mg PO DAILY 04/09/24 05/22/24 cyclobenzaprine 10 mg tablet 5 mg PO BEDTIME 04/09/24 05/22/24 gabapentin 400 mg capsule 400 mg PO TID 04/09/24 05/22/24 hydroxychloroquine 200 mg tablet 400 mg PO DAILY 04/09/24 05/22/24 topiramate 100 mg tablet 100 mg PO BID 04/09/24 05/22/24 lamotrigine 200 mg tablet 200 mg PO DAILY 05/22/24 05/22/24 omeprazole 20 mg capsule,delayed 20 mg PO BID 05/22/24 05/22/24 release sucralfate 1 gram tablet 1 g PO Q6H 05/22/24 05/22/24 sulfasalazine 500 mg tablet 1 g PO Q12H 05/22/24 05/22/24 topiramate 50 mg tablet 50 mg PO Q12H 05/22/24 05/22/24 Previous Rx's ?Medication ?Instructions ?Recorded ciprofloxacin HCl 500 mg tablet 500 mg PO Q12H #20 tabs 05/22/24 (Cipro) metronidazole 500 mg tablet 500 mg PO TID #30 tabs 05/22/24 Allergies Allergy/AdvReac Type Severity Reaction Status Date / Time codeine Allergy rash, hives Verified 05/22/24 18:04 risperidone Allergy Unknown Verified 05/22/24 18:04 duloxetine AdvReac mental Verified 05/22/24 18:04 status change [facility] Medical History (Updated 05/22/24 @ 19:53 by Jaison Huffman MD) Paresthesia ?R20.2 - Paresthesia of skin (ICD-10) Fibromyalgia ?M79.7 - Fibromyalgia (ICD-10) Anxiety and depression ?F41.9 - Anxiety disorder, unspecified (ICD-10) ?F32.A - Depression, unspecified (ICD-10) Arthritis ?M19.90 - Unspecified osteoarthritis, unspecified site (ICD-10) Garcia aneurysm ?I67.1 - Cerebral aneurysm, nonruptured (ICD-10) Bipolar disorder ?F31.9 - Bipolar disorder, unspecified (ICD-10) Migraines ?G43.909 - Migraine, unspecified, not intractable, without status migrainosus (ICD-10) Surgical History (Updated 04/09/24 @ 09:08 by Ginger Mendosa) H/O fine needle aspiration with imaging guidance ?Z98.890 - Other specified postprocedural states (ICD-10) History of hysterectomy ?Z90.710 - Acquired absence of both cervix and uterus (ICD-10) History of cholecystectomy ?Z90.49 - Acquired absence of other specified parts of digestive tract (ICD- 10) Status post appendectomy ?Z90.49 - Acquired absence of other specified parts of digestive tract (ICD- 10) Social History Little interest or pleasure in doing things: not at all Feeling down, depressed, or hopeless: not at all Exam Constitutional Vital Signs, click to edit/add: Last Vital Signs Temp 98.2 F 05/22/24 18:04 Pulse 72 05/22/24 18:04 Resp 18 05/22/24 18:04 BP 139/98 H 05/22/24 18:04 Pulse Ox 98 05/22/24 18:04 O2 Del Method Room Air 05/22/24 18:04 Course Vital Signs Vital signs: Vital Signs Temperature 97.9 F 05/22/24 17:49 Pulse Rate 85 05/22/24 17:49 Respiratory Rate 18 05/22/24 17:49 Blood Pressure 129/89 05/22/24 17:49 Pulse Oximetry 99 05/22/24 17:49 Oxygen Delivery Method Room Air 05/22/24 17:49 Temperature 98.2 F 05/22/24 18:04 Pulse Rate 72 05/22/24 18:04 Respiratory Rate 18 05/22/24 18:04 Blood Pressure 139/98 H 05/22/24 18:04 Pulse Oximetry 98 05/22/24 18:04 Oxygen Delivery Method Room Air 05/22/24 18:04 MDM - Abdominal Pain MDM Narrative Medical decision making narrative: CT scan per radiologist shows questionable colitis. Blood work is appropriate a nd should be discharged home on Cipro and Flagyl and was given first doses of these here. Treatment diagnosis and follow-up were discussed with the patient. Differential Diagnosis Differential diagnosis: Likely abdominal pain, acute appendicitis, calculus of kidney, constipation, diverticulitis, gastroenteritis, pancreatitis, small bowel obstruction and other (Colitis) Lab Data Attestation: I reviewed the patient's lab results. Labs: Lab Results 05/22/24 05/22/24 Range/Units 18:33 18:40 WBC 7.6 (4.0-11.0) 10^3/uL RBC 4.33 (4.20-5.40) 10^6/uL Hgb 13.2 (12.0-16.0) g/dL Hct 38.9 (36.0-48.0) % MCV 89.8 (81.0-99.0) fL MCH 30.5 (26.7-34.0) pg MCHC 33.9 (29.9-35.2) g/dL RDW 12.4 (11.0-15.0) % Plt Count 233 (150-450) 10^3/uL MPV 8.9 L (9.5-13.5) fL Neut % (Auto) 54.0 (43.0-75.0) % Lymph % (Auto) 37.4 (20.5-60.0) % [place] % (Auto) 5.7 (1.7-12.0) % Eos % (Auto) 1.7 (0.9-7.0) % Baso % (Auto) 0.9 (0.2-2.0) % Neut # (Auto) 4.1 (1.4-6.5) 10^3/uL Lymph # (Auto) 2.8 (1.2-3.8) 10^3/uL [place] # (Auto) 0.4 (0.3-0.8) 10^3/uL Eos # (Auto) 0.1 (0.0-0.7) 10^3/uL Baso # (Auto) 0.1 (0.0-0.1) 10^3/uL Abs Immat Gran (auto) 0.02 (0.00-0.03) 10^3/uL Imm/Tot Granulo (auto) 0.3 (0.0-0.5) % Sodium 141 (136-145) mmol/L Potassium 3.5 (3.5-5.1) mmol/L Chloride 106 (98-107) mmol/L Carbon Dioxide 25.0 (21.0-32.0) mmol/L Anion Gap 13.5 BUN 12.0 (7.0-18.0) mg/dL Creatinine 1.09 H (0.55-1.02) mg/dL Est GFR ( Amer) >60 (>=60 mL/min/1.73m^2) Est GFR (Non-Af Amer) 54 L (>=60 mL/min/1.73m^2) BUN/Creatinine Ratio 11.0 Glucose 91 (74-106) mg/dL Calcium 9.3 (8.5-10.1) mg/dL Total Bilirubin 1.1 H (0.2-1.0) mg/dL AST 20 (15-37) U/L ALT 35 (14-59) U/L Alkaline Phosphatase 64 (46-116) U/L Total Protein 7.8 (6.4-8.2) g/dL Albumin 4.2 (3.4-5.0) g/dL Globulin 3.6 g/dL Albumin/Globulin Ratio 1.2 Lipase 67.0 (16.0-77.0) U/L Urine Color Yellow (YELLOW) Urine Clarity Clear (CLEAR) Urine pH 5.5 (5.0-9.0) Ur Specific [place] >=1.030 A (1.005-1.025) Urine Protein Negative (NEG/TRACE) mg/dL Urine Glucose (UA) Negative (NEGATIVE) mg/dL Urine Ketones Trace A (NEGATIVE) mg/dL Urine Occult Blood Negative (NEGATIVE) Urine Nitrite Negative (NEGATIVE) Urine Bilirubin Negative (NEGATIVE) Urine Urobilinogen 0.2 (0.2-1.0) EU/dL Ur Leukocyte Esterase Negative (NEGATIVE) Urine RBC 0-2 (0-2) #/HPF Urine WBC 2-5 A (NONE SEEN) #/HPF Ur Squamous Epith Cells Few A (NONE/RARE) #/LPF Urine Crystals None seen (None Seen) #/HPF Urine Bacteria Trace A (NONE SEEN) #/HPF Urine Casts None seen (NONE SEEN) #/LPF Urine Mucus Moderate A (NONE SEEN) Ur Culture Indicated? No Imaging Data CT scan - abdomen: Radiologist's impression: Question colonic wall thickening, potential colitis although not definite. Otherwise no acute process seen. Discharge Plan Discharge Chief Complaint: Abdominal Pain Clinical Impression: Colitis Patient Disposition: Home, Self-Care Time of Disposition Decision: 19:53 Condition: Good Mode of Transportation: Private Vehicle Prescriptions / Home Meds: New metronidazole 500 mg tablet 500 mg PO TID Qty: 30 0RF ciprofloxacin HCl [Cipro] 500 mg tablet 500 mg PO Q12H Qty: 20 0RF No Action alprazolam 0.5 mg tablet 0.5 mg PO TID PRN (Reason: anxiety) amitriptyline 25 mg tablet 12.5 mg PO BEDTIME Rx Instructions: 1/2 to 1 pill Vraylar 3 mg capsule 3 mg PO DAILY cyclobenzaprine 10 mg tablet 5 mg PO BEDTIME Rx Instructions: 1/2 to 1 pill gabapentin 400 mg capsule 400 mg PO TID hydroxychloroquine 200 mg tablet 400 mg PO DAILY topiramate 100 mg tablet 100 mg PO BID lamotrigine 200 mg tablet 200 mg PO DAILY omeprazole 20 mg capsule,delayed release(DR/EC) 20 mg PO BID sucralfate 1 gram tablet 1 g PO Q6H sulfasalazine 500 mg tablet 1 g PO Q12H topiramate 50 mg tablet 50 mg PO Q12H Print Language: Yoruba Instructions: Colitis (ED) Referrals: HARVEY ARMAS [Primary Care Provider] - 1 week
[2024-05-22] MEDS: CIPROFLOXACIN HCL 500 MG TABLET PO (20:26)
[2024-05-22] MEDS: METRONIDAZOLE 250 MG TABLET 500 MG PO (20:27)
[2024-05-22 20:47] VITALS: BP 123/81; PULSE 56; TEMP 36.6; O2SAT 99
== END 2024-05-22 20:50 | disposition home or self-care (01) ==
PROVIDERS: Emergency Medicine; Emergency Provider Emergency Medicine
DX: K52.9 Noninfective gastroenteritis and colitis, unspecified (principal); Z90.710 Acquired absence of both cervix and uterus; Z90.49 Acquired absence of other specified parts of digestive tract
CPT/HCPCS: 36415; 74177; 80053; 81001; 83690; 85025; 96361; 96374; 96375; 99285; J1885; J2405; Q9967